=== PATIENT | female | born 1950 | race Caucasian/White ===

== ENCOUNTER 2017-05-30 23:42 | Inpatient (IN) ==
[2017-05-31] MEDS ORDERED: ACETAMINOPHEN 500 MG TABLET PO PRN (00:12)
[2017-05-31] MEDS ORDERED: ALBUTEROL/IPRATROPIUM 2.5mg-0.5mg/3ml NEB AEROSOL ONE (00:13)
[2017-05-31] MEDS ORDERED: NS 1,000 ML IV ONE (00:14)
--- NOTE | 2017-05-31 00:14 | Emergency Department Report ---
General Adult HPI - General Chief complaint: Upper Respiratory Infection Stated complaint: cough, 102.8 temp Time Seen by Provider: 05/31/17 00:02 Source: patient, family Mode of arrival: wheelchair Limitations: no limitations - History of Present Illness HPI narrative: 67-year-old female presents to the emergency department with a chief complaint of a cough and fever. Patient noted onset of symptoms one day ago. 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 She denies any current pain or discomfort. She has a nonproductive cough. Her temperature was approximately 102F earlier today. She has been using Mucinex with some improvement of symptoms. She has no other current complaints or associated symptoms. She was at home when her symptoms began. Symptoms have been persistent in nature since onset. is also suffering from similar symptoms. - Related Data Home Medications Medication Instructions Recorded Confirmed Citalopram Hydrobromide 40 mg PO DAILY #0 07/26/09 05/31/17 [Citalopram HBr] Fluticasone Propionate (Flonase) 0.65 EA NOSTRIL BID #0 07/26/09 Folic Acid 1 mg PO DAILY #0 07/26/09 05/31/17 Quetiapine Fumarate [Seroquel] 50 mg PO HS #0 07/26/09 05/31/17 Sennosides [Senna-Gen] 8.6 mg PO BID #2 07/26/09 05/31/17 Amlodipine Besylate 5 mg PO DAILY #0 tab 02/05/14 05/31/17 Levothyroxine Sodium 1 tab PO DAILY #90 05/01/16 05/31/17 Pravastatin Sodium 1 tab PO DAILY #30 05/01/16 05/31/17 Previous Rx's Medication Instructions Recorded Ibuprofen 600 mg PO Q6HR PRN 10 Days #40 tab 05/06/16 Allergies Allergy/AdvReac Type Severity Reaction Status Date / Time sulfamethoxazole Allergy Unknown Verified 05/31/17 00:13 trimethoprim Allergy Unknown Verified 05/31/17 00:13 morphine AdvReac Mild FLUSHING Verified 05/31/17 00:13 Review of Systems Constitutional: Reports: fever, weakness (generalized) Eyes: Denies: eye pain, vision change ENT: Denies: ear pain, throat pain Cardiovascular: Denies: chest pain, palpitations Respiratory: Reports: cough, dyspnea Gastrointestinal: Denies: abdominal pain, nausea, vomiting, diarrhea Genitourinary: Denies: urgency, dysuria Musculoskeletal: Denies: back pain, arthralgia Integumentary: Denies: erythema, rash Neurological: Denies: headache, numbness Psychiatric: Denies: anxiety, depression Endocrine: Denies: fatigue, heat or cold intolerance Hematological/Lymphatic: Denies: easy bruising, lymphadenopathy Allergic/Immunologic: Denies: facial swelling, urticaria PFSH Patient Stated Medical History Cerebrovascular Accident Yes Other HEENT Yes: GLASSES Hypertension Yes Other Respiratory Yes: ALLERGIES Hx Urinary Tract Infection Yes Surgical History: Hysterectomy, Hernia Family History: Reviewed and noncontributory. - Social History Smoking status: Never smoker Physical Exam - Limitations Limitations: no limitations - General General appearance: alert, in no apparent distress - Normal Exams: Head:: Normocephalic without trauma Eyes:: Pupils are PERRLA w/ EOMI, No scleral icterus, irritation, or foreign bodies noted ENMT:: No facial trauma, nasal exudates, pharyngeal erythema, or exudates are noted Dental: No fractured, loose, or missing teeth noted Neck:: Full range of motion, without adenopathy, JVD, bruits or thyromegaly Chest/Respirations:: with good airflow (Coarse breath sounds with rhonchi bilat. ), and symmetry bilaterally Cardiovascular:: Regular rate and rhythm, without murmur or gallop, Pulses 2+ all extremities, capillary refill, <2 seconds all extremities Abdomen:: Bowel sounds positive, soft, non-tender, non-distended, no hepatosplenomegaly, masses or bruits noted Lymphatic:: No lymphadenopathy, or lymphedema noted Musculoskeletal:: No tenderness, or deformity noted, good range of motion, all extremities Integumentary:: No rashes, hives, or bruising noted, hair and nails, without abnormality Neurological:: Patient is alert, and oriented, cranial nerves, motor/sensory/ cerebellar, exams w/o gross deficits, to observation Psychiatric:: Patient exhibits, appropriate attention, emotion and affect Course Vital Signs Temperature 101.6 F H 05/30/17 23:45 Pulse Rate 105 H 05/30/17 23:45 Respiratory Rate 20 05/30/17 23:45 Blood Pressure 208/96 H 05/30/17 23:45 Pulse Oximetry 90 05/30/17 23:45 Temperature 98.2 F 05/31/17 02:54 Pulse Rate 77 05/31/17 02:54 Respiratory Rate 24 05/31/17 02:54 Blood Pressure 128/65 05/31/17 02:54 Pulse Oximetry 97 05/31/17 02:54 Medical Decision Making - MDM Narrative Medical decision making narrative: Labs / imaging were reviewed in detail with the patient and family and questions are answered. Patient is given 1 L normal saline intravenously. She is given 1 g of acetaminophen orally. She is given Zofran 4 mg IV times one. Tamiflu 75 mg by mouth 1 is ordered. Patient is discussed with the hospitalist Dr. Ismael Ellington and admitted to the service of Dr. Atkins in improved condition. Patient is admitted as she is requiring 2L supplemental oxygen by nasal canula to maintain oxygen saturations of 92-94%. Patient is influenza A positive. No further orders from accepting or consulting physicians who are in agreement with the current plan of management. Patient is admitted to the hospital in improved condition. Patient and family are in agreement with the current plan of management. - Differential Diagnosis Influenza, Viral Syndrome, Pneumonia, Metabolic disorder - Lab Data Result diagrams: 05/31/17 00:10 05/31/17 00:10 Lab Results 05/31/17 05/31/17 05/31/17 Range/Units 00:00 00:10 00:10 WBC 9.2 (4.5-11.0) T/MM3 RBC 3.99 L (4.00-5.20) M/MM3 Hgb 12.6 (12-16) GM/DL Hct 39.9 (36-46) % MCV 100.0 (80-100) UM3 MCH 31.6 (26-34) UUG MCHC 31.6 (31-37) GM/DL RDW Std Deviation 45.7 (36.9-50.2) FL Plt Count 135 (130-400) T/MM3 MPV 12.1 (9.4-12.4) UM3 Immature Gran % (Auto) 0.3 (0.0-0.5) % Neut % (Auto) 83.2 H (33-66) % Lymph % (Auto) 7.6 L (23-45) % [place] % (Auto) 8.4 (0-9.0) % Eos % (Auto) 0.2 (0-4) % Baso % (Auto) 0.3 (0-2) % Neut # (Auto) 7.7 (1.8-7.7) T/MM3 Lymph # (Auto) 0.7 L (1-4.8) T/MM3 [place] # (Auto) 0.8 (0-0.8) T/MM3 Eos # (Auto) 0.0 (0-0.5) T/MM3 Baso # (Auto) 0.0 (0-0.2) T/MM3 Abs Immat Gran (auto) 0.03 (0.00-0.03) T/MM3 Turbidity < 20 (0-20) Sodium 145 H (134-144) MEQ/L Potassium 4.3 (3.6-5) MEQ/L Chloride 105 (98-107) MEQ/L Carbon Dioxide 26 (22-30) MEQ/L Anion Gap 14 (5-15) MEQ/L BUN 14.0 (7-17) MG/DL Creatinine 0.7 (0.7-1.2) MG/DL GFR Calculation 83 BUN/Creatinine Ratio 20 (6-26) RATIO Glucose 138 H (65-110) MG/DL Calculated Osmolality 282 H (261-280) MOSM/KG Calcium 9.4 (8.4-10.2) MG/DL Total Bilirubin 0.60 (0.20-1.30) MG/DL Icterus Index < 2 (0-7) AST 24 (14-36) U/L ALT 21 (9-52) U/L Alkaline Phosphatase 68 (38-126) U/L Troponin I < 0.012 (0-0.12) ng/ml Total Protein 7.4 (6.3-8.2) G/DL Albumin 4.3 (3.5-5.0) G/DL Globulin 3.1 (2.4-3.6) G/DL Albumin/Globulin Ratio 1.4 (1.1-2.2) RATIO Plasma Lactate 1.9 (0.6-2.2) MMOL/L Procalcitonin NG/ML Specimen Hemolysis < 15 (0-25) Ur Collection Type Urine Color (YELLOW) Urine Clarity Urine pH (5.0-8.0) Ur Specific Patten (1.015-1.025) Urine Protein (NEGATIVE) Urine Glucose (UA) (NEGATIVE) Urine Ketones (NEGATIVE) Urine Occult Blood (NEGATIVE) Urine Nitrate (NEGATIVE) Urine Bilirubin (NEGATIVE) Urine Urobilinogen (NORMAL) EU/DL Ur Leukocyte Esterase (NEGATIVE) Urinalysis Comment Influenza Type A (PCR) Positive A* (Negative) Influenza Type B (PCR) Negative (Negative) 05/31/17 05/31/17 Range/Units 00:10 00:29 WBC (4.5-11.0) T/MM3 RBC (4.00-5.20) M/MM3 Hgb (12-16) GM/DL Hct (36-46) % MCV (80-100) UM3 MCH (26-34) UUG MCHC (31-37) GM/DL RDW Std Deviation (36.9-50.2) FL Plt Count (130-400) T/MM3 MPV (9.4-12.4) UM3 Immature Gran % (Auto) (0.0-0.5) % Neut % (Auto) (33-66) % Lymph % (Auto) (23-45) % [place] % (Auto) (0-9.0) % Eos % (Auto) (0-4) % Baso % (Auto) (0-2) % Neut # (Auto) (1.8-7.7) T/MM3 Lymph # (Auto) (1-4.8) T/MM3 [place] # (Auto) (0-0.8) T/MM3 Eos # (Auto) (0-0.5) T/MM3 Baso # (Auto) (0-0.2) T/MM3 Abs Immat Gran (auto) (0.00-0.03) T/MM3 Turbidity (0-20) Sodium (134-144) MEQ/L Potassium (3.6-5) MEQ/L Chloride (98-107) MEQ/L Carbon Dioxide (22-30) MEQ/L Anion Gap (5-15) MEQ/L BUN (7-17) MG/DL Creatinine (0.7-1.2) MG/DL GFR Calculation BUN/Creatinine Ratio (6-26) RATIO Glucose (65-110) MG/DL Calculated Osmolality (261-280) MOSM/KG Calcium (8.4-10.2) MG/DL Total Bilirubin (0.20-1.30) MG/DL Icterus Index (0-7) AST (14-36) U/L ALT (9-52) U/L Alkaline Phosphatase (38-126) U/L Troponin I (0-0.12) ng/ml Total Protein (6.3-8.2) G/DL Albumin (3.5-5.0) G/DL Globulin (2.4-3.6) G/DL Albumin/Globulin Ratio (1.1-2.2) RATIO Plasma Lactate (0.6-2.2) MMOL/L Procalcitonin < 0.05 NG/ML Specimen Hemolysis (0-25) Ur Collection Type Urine, catheter Urine Color Yellow (YELLOW) Urine Clarity Clear Urine pH 6.5 (5.0-8.0) Ur Specific Patten 1.025 (1.015-1.025) Urine Protein Trace A (NEGATIVE) Urine Glucose (UA) Negative (NEGATIVE) Urine Ketones Negative (NEGATIVE) Urine Occult Blood Negative (NEGATIVE) Urine Nitrate Negative (NEGATIVE) Urine Bilirubin Negative (NEGATIVE) Urine Urobilinogen 0.2 (NORMAL) EU/DL Ur Leukocyte Esterase Negative (NEGATIVE) Urinalysis Comment Microscopic not ind. Influenza Type A (PCR) (Negative) Influenza Type B (PCR) (Negative) - Radiology Data CXR - Viral pattern. Cannot exclude R sided infiltrate which is most likely viral. - EKG Data EKG #1 EKG results narrative: Sinus rhythm. 84 bpm. No STEMI. Disposition Clinical Impression: Influenza, Hypoxia Disposition: 02 To [facility] Condition: Improved Time of Disposition: 12:45 - Seen By: physician
--- OUTSIDE RECORDS SUMMARY | 2017-05-31 00:18 | External Medical Summary | Clinical Summary ---
:1950 Author Organization [facility] Address [address] [place] [address] Phone Care Team Providers Name Role Phone Unavailable Primary Care Provider Unavailable Source Comments Some departments are not documenting in the electronic medical record. If you do not see the information that you expected, contact Release of Information in the Health Information Management department at [phone] for further assistance in locating additional records.[facility] Allergies Active Allergy Reactions Severity Noted Date Comments Morphine HIVES, ITCHING 01/05/2008 Current Medications Prescription Sig. Disp. Refills Start Date End Date Status folic acid (FOLVITE) 1 mg Take 1 mg by mouth Active tablet daily. amLODIPine (NORVASC) 5 mg Take 5 mg by mouth Active tablet daily. lactulose 10 gram/15 mL Take 10 g by mouth Active oral solution three times daily. QUEtiapine (SEROQUEL) 50 Take 25 mg by mouth Active mg tablet daily. calcitonin salmon Apply 1 [place] to Active (FORTICAL) 200 one nostril as unit/actuation nasal directed daily. spray citalopram (CELEXA) 40 mg Take 40 mg by mouth Active tablet daily. POLYETHYLENE GLYCOL 3350 Use as directed. Active MISC levofloxacin (LEVAQUIN) Take 500 mg by Active 500 mg tablet mouth. LEVOTHYROXINE SODIUM Take 75 mcg by Active (SYNTHROID PO) mouth daily. CALCIUM CARBONATE/VITAMIN Take 1 Tab by mouth Active D3 (CALCIUM 600 + D PO) daily. SENNOSIDES (SENNA PO) Take 1 Tab by mouth Active twice daily. cyanocobalamin(+) Take 1,000 mcg by Active (VITAMIN B-12) 500 mcg mouth daily. 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 Social History Tobacco Use Types Packs/Day Years Used Date Former Smoker 1 8 Smokeless Tobacco: Never Used Comments: quit 1974 Alcohol Use Drinks/Week oz/Week Comments No rarely Sex Assigned at Date Recorded Not on file Last Filed Vital Signs Vital Sign Reading Time Taken Blood Pressure 115/64 10/16/2013 11:48 AM CDT Pulse 60 10/16/2013 11:48 AM CDT Temperature 37.2 C (99 F) 08/25/2011 12:47 AM CDT Respiratory Rate 16 04/10/2013 11:36 AM [employer] Oxygen Saturation 97% 01/17/2008 7:50 AM CDT Inhaled Oxygen Concentration - - Weight 117.9 kg (260 lb) 10/16/2013 11:48 AM CDT Height 165.1 cm (5' 5") 10/16/2013 11:48 AM CDT Body Mass Index 43.27 10/16/2013 11:48 AM CDT Plan of Treatment Health Maintenance Due Date Last Done Comments HEPATITIS C SCREENING 1950 PHYSICAL (COMPREHENSIVE) EXAM 1957 PERTUSSIS VACCINE 1961 TETANUS VACCINE 1967 BREAST CANCER SCREENING 1990 COLORECTAL CANCER SCREENING 01/12/2000 SHINGLES VACCINE 2010 OSTEOPOROSIS SCREENING 2015 PREVNAR/PNEUMOVAX (#1) 2015 INFLUENZA VACCINE 12/29/2016
--- OUTSIDE RECORDS SUMMARY | 2017-05-31 00:19 | External Medical Summary | Referral Summary ---
:1950 Author [facility] Address [address] [place] [address] [place] [address] Care Team Providers Name Role Phone Jacqueline Zhang Primary Care Physician Encounter VC Date(s): 07/01/16 - 07/01/16 [facility] [place] [phone] Discharge Disposition: 01-Home or Self Care Attending Physician: Quinten Burr APRN Admitting Physician: Quinten Burr APRN Vital Signs Most recent to oldest [Reference Range]: 1 Temperature Tympanic [36.6-38.1 degC] 36.4 degC *LOW* (07/01/16 1:17 PM) Peripheral Pulse Rate [60-100 bpm] 66 bpm (07/01/16 1:17 PM) Blood Pressure [90-140/60-90 mmHg] 108/74 mmHg (07/01/16 1:17 PM) SpO2 97 % (07/01/16 1:17 PM) Problem List Condition Effective Dates Status Health Status Informant Anxiety(Confirmed) Active CVA (cerebral vascular Active accident)(Confirmed) Paranoia(Confirmed) Active Thyroid disease(Confirmed) Active Hearing loss(Confirmed) Active H/O: CVA (cerebrovascular Active accident)(Confirmed) Hypertension(Confirmed) Active Tobacco user(Confirmed) Active patient Allergies, Adverse Reactions, Alerts Substance Reaction Severity Status Bactrim1 Active 1Not sure this is the correct one family can not remember for sure Medications amLODIPine 5 mg oral tablet See Instructions, TAKE ONE TABLET BY MOUTH DAILY Pt needs med check, # 30 tabs , 0 Refill(s), Pharmacy: [facility] #[id number], TAKE ONE TABLET BY MOUTH DAILY; Pt needs med check Start Date: 06/09/16 Status: OrderedCaltrate 600 + D tabs, Oral, Daily, 0 Refill(s) Start Date: 08/03/14 Status: OrderedCipro 500 mg oral tablet 500 mg 1 tabs, Oral, q12hr, X 7 days, # 14 tabs, 0 Refill(s), Pharmacy: [facility] #[id number], 1 tabs Oral q12hr,x7 days Start Date: 07/01/16 Stop Date: 07/08/16 Status: OrderedCitalopram 40 mg oral tablet See Instructions, TAKE ONE TABLET BY MOUTH DAILY, # 90 tabs, eRx: [facility] #[id number], TAKE ONETABLET BY MOUTH DAILY Start Date: 04/15/16 Status: Orderedfluticasone 50 mcg/inh nasal spray See Instructions, PLACE ONE SPRAY IN EACH NOSTRIL ONCE DAILY, # 16 unknown unit , 2 Refill(s), eRx: [facility] #[id number], PLACE ONE SPRAY IN EACH NOSTRIL ONCE DAILY Start Date: 04/20/16 Status: Orderedfolic acid 1 mg oral tablet See Instructions, TAKE ONE TABLET BY MOUTH DAILY, MUST CALL MD FOR APPOINTMENT , # 30 tabs, 2 Refill(s), eRx: [facility] #[id number], TAKE ONE TABLET BY MOUTH DAILY, MUST CALL MD FOR APPOINTMENT Start Date: 04/14/16 Status: Orderedibuprofen 600 mg oral tablet 600 mg 1 tabs, Oral, q6hr, as needed for pain, 0 Refill(s) Start Date: 05/08/16 Status: Orderedlactulose 10 g/15 mL oral syrup See Instructions, TAKE 30 ML BY MOUTH EVERY DAY, DO NOT USE IF DIARRHEA., # 450 unknown unit, 1 Refill(s), Pharmacy: [facility] #[id number], TAKE 30 ML BY MOUTH EVERY DAY, DO NOT USE IF DIARRHEA. Start Date: 03/13/15 Status: Orderedlevothyroxine 75 mcg (0.075 mg) oral tablet See Instructions, TAKE ONE TABLET BY MOUTH DAILY, # 90 tabs, eRx: [facility] #[id number], TAKE ONETABLET BY MOUTH DAILY Start Date: 04/01/16 Status: OrderedMiraLax oral powder for reconstitution 17 g 17 g, Oral, Daily, dissolve in water before taking, # 1,530 g, 1 Refill(s) , Pharmacy: [facility] #[id number] Start Date: 03/13/15 Status: OrderedMiscellaneous DME DME Item REPAIR/MOD TO POWER WHEELCHAIR DX Z86.73, See Instructions, # 1 Each, 0 Refill(s), Supply Start Date: 11/28/15 Status: OrderedNorco 5 mg-325 mg oral tablet 1-2 tabs, Oral, q5hr, as needed for pain, 0 Refill(s) Start Date: 05/08/16 Status: Orderedpravastatin 20 mg oral tablet See Instructions, TAKE ONE TABLET BY MOUTH EVERY NIGHT AT BEDTIME MUST CALL MD FOR APPOINTMENT, # 30 tabs, 2 Refill(s), eRx: [facility] #[id number], TAKE ONE TABLET BY MOUTH EVERY NIGHT AT BEDTIME MUST CALL MD FOR APPOINTMENT Start Date: 04/14/16 Status: OrderedQUEtiapine 25 mg oral tablet See Instructions, TAKE ONE TABLET BY MOUTH DAILY, MUST CALL MD FOR APPOINTMENT , # 30 tabs, 2 Refill(s), eRx: [facility] #[id number], TAKE ONE TABLET BY MOUTH DAILY, MUST CALL MD FOR APPOINTMENT Start Date: 04/14/16 Status: OrderedSenna Plus See Instructions, TAKES 1-2 AM AND 2 @ HS, 0 Refill(s) Start Date: 08/07/14 Status: OrderedVitamin B-12 100 mcg oral tablet 1 tabs, Oral, Daily, # 30 tabs, 0 Refill(s) Start Date: 08/03/14 Status: Ordered Results No data available for this section Immunizations Given and Recorded Vaccine Date Status Refusal Reason hepatitis B adult vaccine 11/26/10 Recorded influenza virus vaccine, inactivated 03/12/16 Recorded influenza virus vaccine, inactivated 03/28/15 Recorded influenza virus vaccine, inactivated 03/20/14 Recorded influenza virus vaccine, live 03/07/13 Given influenza virus vaccine, live 03/03/12 Given zoster vaccine live 03/17/12 Given Procedures Procedure Date Related Diagnosis Body Site Laparoscopic repair of ventral hernia1 05/04/16 Hysterectomy Insertion-Baclofen Pump Myringotomy Tubal ligation 1Robotic assisted laparoscopic ventral hernia repair with mesh Social History Social History Type Response Smoking Status Former smoker; Type: Cigarettes; Tobacco use per day: Former; Number of years: 7 Assessment and Plan No data available for this section
--- OUTSIDE RECORDS SUMMARY | 2017-05-31 00:19 | External Medical Summary | Referral Summary ---
:1950 Author [facility] Address [address] [place] [address] [place] [address] Care Team Providers Name Role Phone Jacqueline Zhang Primary Care Physician Encounter VC Date(s): 03/13/15 - 03/13/15 [facility] [place] [phone] [place] Discharge Diagnosis: Hypertension Discharge Diagnosis: Paranoia Discharge Diagnosis: Depression Discharge Diagnosis: Hyperlipidemia Discharge Diagnosis: Thyroid disease Discharge Disposition: 01-Home or Self Care Attending Physician: Quinten Burr APRN Admitting Physician: Quinten Burr APRN Vital Signs Most recent to oldest [Reference Range]: 1 Temperature Tympanic [36.6-38.1 degC] 35.8 degC *LOW* (03/13/15 10:39 AM) Peripheral Pulse Rate [60-100 bpm] 72 bpm (03/13/15 10:39 AM) Respiratory Rate [14-20 br/min] 18 br/min (03/13/15 10:39 AM) Blood Pressure [90-140/60-90 mmHg] 122/72 mmHg (03/13/15 10:39 AM) Problem List Condition Effective Dates Status Health [...] sure Medications amLODIPine 5 mg oral tablet 5 mg 1 tabs, Oral, Daily, # 90 tabs, 1 Refill(s), Pharmacy: [facility] # [id number], 1 tabs Oral Daily Start Date: 03/13/15 Status: OrderedCaltrate 600 + D tabs, Oral, BID, 0 Refill(s) Start Date: 08/03/14 Status: OrderedCeleXA 40 mg oral tablet 40 mg 1 tabs, Oral, Daily, # 90 tabs, 1 Refill(s), Pharmacy: [facility] # [id number], 1 tabs Oral Daily Start Date: 03/13/15 Status: OrderedFlonase 50 mcg/inh nasal spray See Instructions, PLACE ONE SPRAY IN THE EACH NOSTRIL EVERY DAY, # 1 Each, 3 Refill(s), Pharmacy: [facility] #[id number] Start Date: 03/13/15 Status: Orderedfolic acid 1 mg oral tablet See Instructions, TAKE ONE TABLET BY MOUTH DAILY, # 90 tabs, 1 Refill(s), eRx: [facility] #[id number], TAKE ONE TABLET BY MOUTH DAILY Start Date: 09/16/15 Status: Orderedlactulose 10 g/15 mL oral syrup 10 g 15 mL, Oral, Daily, as needed for constipation, # 480 mL, 0 Refill(s) Start Date: 03/13/15 Status: Orderedlactulose 10 g/15 mL oral syrup See Instructions, TAKE 30 ML BY MOUTH EVERY DAY, DO NOT USE IF DIARRHEA., # 450 unknown unit, 1 Refill(s), Pharmacy: [facility] #[id number], TAKE 30 ML BY MOUTH EVERY DAY, DO NOT USE IF DIARRHEA. Start Date: 03/13/15 Status: Orderedlevothyroxine 75 mcg (0.075 mg) oral tablet 75 mcg 1 tabs, Oral, Daily, # 90 tabs, 1 Refill(s), Pharmacy: [facility] # [id number], 1 tabs Oral Daily Start Date: 03/13/15 Status: OrderedMiraLax oral powder for reconstitution 17 g 17 g, Oral, Daily, dissolve in water before taking, # 1,530 g, 1 Refill(s) , Pharmacy: [facility] #[id number] Start Date: 03/13/15 Status: Orderedpravastatin 20 mg oral tablet 20 mg 1 tabs, Oral, Bedtime (once a day), # 30 tabs, 5 Refill(s), Pharmacy: [facility] #[id number], 1 tabs Oral Bedtime (once a day) Start Date: 03/13/15 Status: OrderedQUEtiapine 25 mg oral tablet See Instructions, TAKE ONE TABLET BY MOUTH DAILY, # 90 tabs, 1 Refill(s), eRx: [facility] #[id number], TAKE ONE TABLET BY MOUTH DAILY Start Date: 09/19/15 Status: OrderedSenna Plus 2 tabs, Oral, Bedtime (once a day), 0 Refill(s) Start Date: 08/07/14 Status: OrderedVitamin B-12 100 mcg oral tablet 1 tabs, Oral, Daily, # 30 tabs, 0 Refill(s) Start Date: 08/03/14 Status: Ordered Results No data available for this section Immunizations Vaccine Date Refusal Reason hepatitis B adult vaccine 11/26/10 influenza virus vaccine, inactivated 03/28/15 influenza virus vaccine, inactivated 03/20/14 influenza virus vaccine, live 03/07/13 influenza virus vaccine, live 03/03/12 zoster vaccine live 03/17/12 Procedures Procedure Date Related Diagnosis Body Site Hysterectomy Insertion-Baclofen Pump Myringotomy Tubal ligation Social History Social History Type Response Smoking Status Former smoker; Type: Cigarettes; Tobacco use per day: Former; Number of years: 7 Assessment and Plan Extracted from: Title: Office Visit Note Author: Quinten Burr APRN Date: 03/13/15 Assessment/Plan Depression She feels that this is well controlled on her citalopram. On exam, she appears to be doing well symptomatically. I think we can safely refill this for her for 6 months. Hyperlipidemia She had a fasting LP drawn in July that showed some elevated triglycerides. She reports that she was put on statin therapy at that time. We will refill this today, but she will retur n for a rck lipid panel another day when she is fasting. Hypertension BP seems to be well controlled. We will refill her amlodipine for 6 mos. She needs to come back in for a BMP since it has been 6 mos. She can do this with her LP. Paranoia Quetiapine seems to be working for her in controlling some of these symptoms. I think it is advisable to keep her on it at this time. Refilled for 6 mos. Thyroid disease TSH is July shows that she is well controlled. Reports being asymptomatic. Continue current therapy and rck in 1 year from July.
--- OUTSIDE RECORDS SUMMARY | 2017-05-31 00:19 | External Medical Summary | Referral Summary ---
:1950 Author Organization [facility] Address [address] [place] [address] Care Team Providers Name Role Phone Jacqueline Zhang Primary Care Physician Encounter VC [facility] [id number] Date(s): 07/08/16 - 07/08/[address] [facility] [address] [place] [address]- [place] Discharge Diagnosis: Tobacco user Discharge Disposition: 01-Home or Self Care Attending Physician: Hong Montoya MD Admitting Physician: Hong Montoya MD Vital Signs No data available for this section Problem List Condition Effective Dates Status Health Status Informant Abnormal EKG(Confirmed) Active Anxiety(Confirmed) Active Benign essential HTN(Confirmed) Active CVA (cerebral vascular Active accident)(Confirmed) Paranoia(Confirmed) Active Thyroid disease(Confirmed) Active Hearing loss(Confirmed) Active H/O: CVA (cerebrovascular Active accident)(Confirmed) Hypertension(Confirmed) Active Morbid obesity(Confirmed) Active Bradycardia, sinus(Confirmed) Active Tobacco user(Confirmed) Active patient Allergies, Adverse Reactions, Alerts Substance Reaction Severity Status Bactrim1 Active 1Not sure this is the correct one family can not remember for sure Medications amLODIPine 5 mg oral tablet See Instructions, TAKE ONE TABLET BY MOUTH DAILY, MUST CALL MD FOR APPOINTMENT , # 30 tabs, eRx: [facility] #[id number], TAKE ONE TABLET BY MOUTH DAILY, MUST CALL MD FOR APPOINTMENT Start Date: 07/06/16 Status: Orderedbaclofen 0 Refill(s) Start Date: 07/03/16 Status: OrderedCaltrate 600 + D tabs, Oral, Daily, 0 Refill(s) Start Date: 08/03/14 Status: OrderedCitalopram 40 mg oral tablet See Instructions, TAKE ONE TABLET BY MOUTH DAILY, # 90 tabs, eRx: [facility] #[id number], TAKE ONETABLET BY MOUTH DAILY Start Date: 04/15/16 Status: Orderedfluticasone 50 mcg/inh nasal spray See Instructions, PLACE ONE SPRAY IN EACH NOSTRIL ONCE DAILY, # 16 unknown unit , 2 Refill(s), eRx: [facility] #[id number], PLACE ONE SPRAY IN EACH NOSTRIL ONCE DAILY Start Date: 04/20/16 Status: Orderedfolic acid 1 mg oral tablet See Instructions, TAKE ONE TABLET BY MOUTH DAILY, MUST CALL MD FOR APPOINTMENT , # 30 tabs, 2 Refill(s), eRx: [facility] #[id number], TAKE ONE TABLET BY MOUTH DAILY, MUST CALL MD FOR APPOINTMENT Start Date: 04/14/16 Status: Orderedibuprofen 600 mg oral tablet 600 mg 1 tabs, Oral, q6hr, as needed for pain, 0 Refill(s) Start Date: 05/08/16 Status: Orderedlactulose 10 g/15 mL oral syrup See Instructions, TAKE 30 ML BY MOUTH EVERY DAY, DO NOT USE IF DIARRHEA., # 450 unknown unit, 1 Refill(s), Pharmacy: [facility] #[id number], TAKE 30 ML BY MOUTH EVERY DAY, DO NOT USE IF DIARRHEA. Start Date: 03/13/15 Status: Orderedlevothyroxine 75 mcg (0.075 mg) oral tablet See Instructions, TAKE ONE TABLET BY MOUTH DAILY, # 90 tabs, eRx: [facility] #[id number], TAKE ONETABLET BY MOUTH DAILY Start Date: 04/01/16 Status: OrderedMiraLax oral powder for reconstitution 17 g 17 g, Oral, Daily, dissolve in water before taking, # 1,530 g, 1 Refill(s) , Pharmacy: [facility] #[id number] Start Date: 03/13/15 Status: OrderedMiscellaneous DME DME Item REPAIR/MOD TO POWER WHEELCHAIR DX Z86.73, See Instructions, # 1 Each, 0 Refill(s), Supply Start Date: 11/28/15 Status: Orderedpravastatin 20 mg oral tablet See Instructions, TAKE ONE TABLET BY MOUTH EVERY NIGHT AT BEDTIME MUST CALL MD FOR APPOINTMENT, # 30 tabs, 2 Refill(s), eRx: [facility] #[id number], TAKE ONE TABLET BY MOUTH EVERY NIGHT AT BEDTIME MUST CALL MD FOR APPOINTMENT Start Date: 04/14/16 Status: OrderedQUEtiapine 25 mg oral tablet See Instructions, TAKE ONE TABLET BY MOUTH DAILY, MUST CALL MD FOR APPOINTMENT , # 30 tabs, 2 Refill(s), eRx: [facility] #[id number], TAKE ONE TABLET BY MOUTH DAILY, MUST CALL MD FOR APPOINTMENT Start Date: 04/14/16 Status: OrderedSenna Plus See Instructions, TAKES 1-2 AM AND 2 @ HS, 0 Refill(s) Start Date: 08/07/14 Status: OrderedVitamin B-12 100 mcg oral tablet 1 tabs, Oral, Daily, # 30 tabs, 0 Refill(s) Start Date: 08/03/14 Status: Ordered Results Chemistry Most recent to oldest [Reference Range]: 1 BNP [0-99 pg/mL] 32 pg/mL (07/08/16 9:51 AM) Immunizations Given and Recorded Vaccine Date Status [...]
--- OUTSIDE RECORDS SUMMARY | 2017-05-31 00:19 | External Medical Summary | Referral Summary ---
:1950 Author Organization [facility] Address [address] [place] [address] Care Team Providers Name Role Phone Jacqueline Zhang Primary Care Physician Encounter VC Date(s): 07/03/16 - 07/03/16 [facility] [address] [place] [address]- [place] Discharge Disposition: 01-Home or Self Care Attending Physician: Francisco Cuello MD Vital Signs No data available for [...] # 30 tabs , 0 Refill(s), Pharmacy: [facility] #[id number], TAKE ONE TABLET BY MOUTH DAILY; Pt needs med check Start Date: 06/09/16 Status: Orderedbaclofen 0 Refill(s) Start Date: 07/03/16 Status: OrderedCaltrate 600 + D tabs, Oral, Daily, 0 Refill(s) Start Date: 08/03/14 Status: OrderedCipro 500 mg oral tablet 500 mg 1 tabs, Oral, q12hr, X 7 days, # 14 tabs, 0 Refill(s), Pharmacy: [facility] #[id number], 1 tabs Oral q12hr,x7 days Start Date: 07/01/16 Stop Date: 07/08/16 Status: OrderedCitalopram 40 mg oral tablet See Instructions, TAKE ONE TABLET BY MOUTH DAILY, # 90 tabs, eRx: [facility] #[id number], TAKE ONETABLET BY MOUTH DAILY Start Date: 04/15/16 Status: Orderedfluticasone 50 mcg/inh nasal spray See Instructions, PLACE ONE SPRAY IN EACH NOSTRIL ONCE DAILY, # 16 unknown unit , 2 Refill(s), eRx: [facility] #[id number], PLACE ONE SPRAY IN EACH NOSTRIL ONCE DAILY Start Date: 04/20/16 Status: Orderedfolic acid 1 mg oral tablet See Instructions, TAKE ONE TABLET BY MOUTH DAILY, MUST CALL MD FOR APPOINTMENT , # 30 tabs, 2 Refill(s), eRx: [facility] #[id number], TAKE ONE TABLET BY MOUTH DAILY, MUST CALL MD FOR APPOINTMENT Start Date: 04/14/16 Status: Orderedibuprofen 600 mg oral tablet 600 mg 1 tabs, Oral, q6hr, as needed for pain, 0 Refill(s) Start Date: 05/08/16 Status: Orderedlactulose 10 g/15 mL oral syrup See Instructions, TAKE 30 ML BY MOUTH EVERY DAY, DO NOT USE IF DIARRHEA., # 450 unknown unit, 1 Refill(s), Pharmacy: [facility] #[id number], TAKE 30 ML BY MOUTH EVERY DAY, DO NOT USE IF DIARRHEA. Start Date: 03/13/15 Status: Orderedlevothyroxine 75 mcg (0.075 mg) oral tablet See Instructions, TAKE ONE TABLET BY MOUTH DAILY, # 90 tabs, eRx: [facility] #[id number], TAKE ONETABLET BY MOUTH DAILY Start Date: 04/01/16 Status: OrderedMiraLax oral powder for reconstitution 17 g 17 g, Oral, Daily, dissolve in water before taking, # 1,530 g, 1 Refill(s) , Pharmacy: [facility] #[id number] Start Date: 03/13/15 Status: OrderedMiscellaneous DME DME [...] APPOINTMENT, # 30 tabs, 2 Refill(s), eRx: [facility] #[id number], TAKE ONE TABLET BY MOUTH EVERY NIGHT AT BEDTIME MUST CALL MD FOR APPOINTMENT Start Date: 04/14/16 Status: OrderedQUEtiapine 25 mg oral tablet See Instructions, TAKE ONE TABLET BY MOUTH DAILY, MUST CALL MD FOR APPOINTMENT , # 30 tabs, 2 Refill(s), eRx: [facility] #[id number], TAKE ONE TABLET BY MOUTH DAILY, MUST [...]
--- OUTSIDE RECORDS SUMMARY | 2017-05-31 00:19 | External Medical Summary | Referral Summary ---
:1950 Author Organization [facility] Address [address] [place] [address] Care Team Providers Name Role Phone Jacqueline Zhang Primary Care Physician Encounter VC Date(s): 07/08/16 - 07/08/16 [facility] [address] [place] [address]- [place] Discharge Diagnosis: Hypoxia Discharge Diagnosis: Obstructive sleep apnea Discharge Diagnosis: Preoperative clearance Discharge Diagnosis: Shortness of breath Discharge Disposition: 01-Home or Self Care Attending Physician: Hong Montoya MD Admitting Physician: Hong Montoya MD Referring Physician: Ike Hill MD Vital Signs Most recent to oldest [Reference Range]: 1 Peripheral Pulse Rate [60-100 bpm] 58 bpm *LOW* (07/08/16 8:35 AM) Respiratory Rate [14-20 br/min] 16 br/min (07/08/16 8:35 AM) Blood Pressure [90-140/60-90 mmHg] 104/62 mmHg (07/08/16 8:35 AM) SpO2 93 % (07/08/16 8:35 AM) Problem List Condition Effective Dates Status [...] FOR APPOINTMENT , # 30 tabs, eRx: [facility] #[id number], TAKE ONE TABLET BY MOUTH DAILY, MUST CALL MD FOR APPOINTMENT Start Date: 07/06/16 Status: Orderedbaclofen 0 Refill(s) Start Date: 07/03/16 Status: OrderedCaltrate 600 + D tabs, Oral, Daily, 0 Refill(s) Start Date: 08/03/14 Status: OrderedCitalopram 40 mg oral tablet See Instructions, TAKE ONE TABLET BY MOUTH DAILY, # 90 tabs, eRx: [facility] #[id number], TAKE ONETABLET BY MOUTH DAILY Start Date: 04/15/16 Status: Orderedfluticasone 50 mcg/inh nasal spray See Instructions, PLACE ONE SPRAY IN EACH NOSTRIL ONCE DAILY, # 16 unknown unit , 2 Refill(s), eRx: [facility] #[id number], PLACE ONE SPRAY IN EACH NOSTRIL ONCE DAILY Start Date: 04/20/16 Status: Orderedfolic acid 1 mg oral tablet See Instructions, TAKE ONE TABLET BY MOUTH DAILY, MUST CALL MD FOR APPOINTMENT , # 30 tabs, 2 Refill(s), eRx: [facility] #[id number], TAKE ONE TABLET BY MOUTH DAILY, MUST CALL MD FOR APPOINTMENT Start Date: 04/14/16 Status: Orderedibuprofen 600 mg oral tablet 600 mg 1 tabs, Oral, q6hr, as needed for pain, 0 Refill(s) Start Date: 05/08/16 Status: Orderedlactulose 10 g/15 mL oral syrup See Instructions, TAKE 30 ML BY MOUTH EVERY DAY, DO NOT USE IF DIARRHEA., # 450 unknown unit, 1 Refill(s), Pharmacy: [facility] #[id number], TAKE 30 ML BY MOUTH EVERY DAY, DO NOT USE IF DIARRHEA. Start Date: 03/13/15 Status: Orderedlevothyroxine 75 mcg (0.075 mg) oral tablet See Instructions, TAKE ONE TABLET BY MOUTH DAILY, # 90 tabs, eRx: [facility] #[id number], TAKE ONETABLET BY MOUTH DAILY Start Date: 04/01/16 Status: OrderedMiraLax oral powder for reconstitution 17 g 17 g, Oral, Daily, dissolve in water before taking, # 1,530 g, 1 Refill(s) , Pharmacy: [facility] #[id number] Start Date: 03/13/15 Status: OrderedMiscellaneous DME DME Item REPAIR/MOD TO POWER WHEELCHAIR DX Z86.73, See Instructions, # 1 Each, 0 Refill(s), Supply Start Date: 11/28/15 Status: Orderedpravastatin 20 mg oral tablet See Instructions, TAKE ONE TABLET BY MOUTH EVERY NIGHT AT BEDTIME MUST CALL MD FOR APPOINTMENT, # 30 tabs, 2 Refill(s), eRx: [facility] #[id number], TAKE ONE TABLET BY MOUTH EVERY NIGHT AT BEDTIME MUST CALL MD FOR APPOINTMENT Start Date: 04/14/16 Status: OrderedQUEtiapine 25 mg oral tablet See Instructions, TAKE ONE TABLET BY MOUTH DAILY, MUST CALL MD FOR APPOINTMENT , # 30 tabs, 2 Refill(s), eRx: [facility] #[id number], TAKE ONE TABLET BY MOUTH DAILY, MUST [...] Extracted from: Title: Office Visit Note Author: Hong Montoya MD Date: 07/08/16 Assessment/Plan 1.Shortness of breath Ordered: Diffusing [facility] [place] [address] Hypoxia Her hypoxia is likely due to obesity and basal atelectasis. Per daughter in the past this seems to improve with deep breathing which again supports this mechanism Her CXR is unremarkable. Her PFTs are without obstruction. Her DLCO va is elevated suggestive of extrinsic restriction due to obesity I checked a BNP which was normal AT this moment would not consider further workup If hypoxia is refractory in the future would consider further workup Surgical clearance From a pulmonary standpoint there is no contraindication to surgery. Given obesity, and features suggestive of intermittent basal atelectasis, she may benefit from positive pressure/cpap or bipap in t he perioperative period especially while sedation is washing off Obstructive sleep apnea She has features suggestive of obstructive sleep apnea, she would benefit from sleep evaluation. Family would like to defer referral to sleep until they see primary. I have reviewed laboratory results I have reviewed the patientsradiology and imaging results I have reviewed old records I have reviewed the literature I have discussed the plan of care with the patient
--- OUTSIDE RECORDS SUMMARY | 2017-05-31 00:19 | External Medical Summary | Referral Summary ---
:1950 Author Organization [facility] [place] [address] Care Team Providers Name Role Phone Jacqueline Zhang Primary Care Physician Encounter VC Date(s): 09/12/15 - 09/12/15 [facility] [place] [address]- Discharge Diagnosis: Thyroid disease Discharge Diagnosis: H/O: CVA (cerebrovascular accident) Discharge Diagnosis: Hypertension Discharge Diagnosis: Anxiety Discharge Disposition: 01-Home or Self Care Attending Physician: Jacqueline Zhang DO Admitting Physician: Jacqueline Zhang DO Vital Signs Most recent to oldest [Reference Range]: 1 Peripheral Pulse Rate [60-100 bpm] 63 bpm (09/12/15 9:55 AM) Respiratory Rate [14-20 br/min] 18 br/min (09/12/15 9:55 AM) Blood Pressure [90-140/60-90 mmHg] 144/74 mmHg *HI* (09/12/15 9:55 AM) SpO2 95 % (09/12/15 9:55 AM) Problem List Condition Effective Dates Status [...] Daily, # 90 tabs, 1 Refill(s), Pharmacy: [facility] # [id number], 1 tabs Oral Daily Start Date: 03/13/15 Status: OrderedCaltrate 600 + D tabs, Oral, BID, 0 Refill(s) Start Date: 08/03/14 Status: OrderedCeleXA 40 mg oral tablet 40 mg 1 tabs, Oral, Daily, # 90 tabs, 1 Refill(s), Pharmacy: [facility] # [id number], 1 tabs Oral Daily Start Date: 03/13/15 Status: OrderedFlonase 50 mcg/inh nasal spray See Instructions, PLACE ONE SPRAY IN THE EACH NOSTRIL EVERY DAY, # 1 Each, 3 Refill(s), Pharmacy: [facility] #[id number] Start Date: 03/13/15 Status: Orderedfolic acid 1 mg oral tablet 1 mg 1 tabs, Oral, Daily, # 90 tabs, 1 Refill(s), Pharmacy: [facility] # [id number], 1 tabs Oral Daily Start Date: 03/13/15 Status: Orderedlactulose 10 g/15 mL oral syrup 10 g 15 mL, Oral, Daily, as needed for constipation, # 480 mL, 0 Refill(s) Start Date: 03/13/15 Status: Orderedlactulose 10 g/15 mL oral syrup See Instructions, TAKE 30 ML BY MOUTH EVERY DAY, DO NOT USE IF DIARRHEA., # 450 unknown unit, 1 Refill(s), Pharmacy: [facility] #[id number], TAKE 30 ML BY MOUTH EVERY DAY, DO NOT USE IF DIARRHEA. Start Date: 03/13/15 Status: Orderedlevothyroxine 75 mcg (0.075 mg) oral tablet 75 mcg 1 tabs, Oral, Daily, # 90 tabs, 1 Refill(s), Pharmacy: [facility] # [id number], 1 tabs Oral Daily Start Date: 03/13/15 Status: OrderedMiraLax oral powder for reconstitution 17 g 17 g, Oral, Daily, dissolve in water before taking, # 1,530 g, 1 Refill(s) , Pharmacy: [facility] #[id number] Start Date: 03/13/15 Status: Orderedpravastatin 20 mg oral tablet 20 mg 1 tabs, Oral, Bedtime (once a day), # 30 tabs, 5 Refill(s), Pharmacy: [facility] #[id number], 1 tabs Oral Bedtime (once a day) Start Date: 03/13/15 Status: OrderedQUEtiapine 25 mg oral tablet 25 mg 1 tabs, Oral, Daily, # 90 tabs, 1 Refill(s), Pharmacy: [facility] # [id number], 1 tabs Oral Daily Start Date: 03/13/15 Status: OrderedSenna Plus 2 tabs, Oral, Bedtime [...] Extracted from: Title: Office Visit Note Author: Jacqueline Zhang DO Date: 09/12/15 Assessment/Plan Anxiety We did discuss that there are options that she has such as utilizing BuSpar as a when necessary her increasing her Seroquel. She does not wish to pursue these at this time. Ordered: Office Visit Level 4 Est 02922 H/O: CVA (cerebrovascular accident) She is doing well on her statin medication. In regards to hershortness of breath she is unwilling to do any further testing at this time so we will continue t o monitor. He also is unwilling totry an inhaler. Ordered: Office Visit Level 4 Est 07956 Hypertension Doing well, continue current regimen. Labs done yesterday. Ordered: Office Visit Level 4 Est 06194 Thyroid disease Doing well, continue current regimen, labs done yesterday, return to clinic 6 months. Ordered: Office Visit Level 4 Est 87503
--- OUTSIDE RECORDS SUMMARY | 2017-05-31 00:19 | External Medical Summary | Referral Summary ---
:1950 Author Organization [facility] Address [address] [place] [address] Care Team Providers Name Role Phone Jacqueline Zhang Primary Care Physician Encounter [facility] [id number] Date(s): 07/03/16 - 07/03/16 [facility] [address] [place] [address]- [place] Discharge Diagnosis: H/O: CVA (cerebrovascular accident) Discharge Diagnosis: Tobacco user Discharge Diagnosis: Benign essential HTN Discharge Diagnosis: Bradycardia, sinus Discharge Diagnosis: Abnormal EKG Discharge Diagnosis: Encounter for pre-operative cardiovascular clearance Discharge Diagnosis: Morbid obesity Discharge Disposition: 01-Home or Self Care Attending Physician: Francisco Cuello MD Admitting Physician: Francisco Cuello MD Referring Physician: Quinten Burr APRN Vital Signs Most recent to oldest [Reference Range]: 1 Peripheral Pulse Rate [60-100 bpm] 54 bpm *LOW* (07/03/16 10:50 AM) Blood Pressure [90-140/60-90 mmHg] 138/76 mmHg (07/03/16 10:50 AM) Problem List Condition Effective Dates Status [...] # 30 tabs , 0 Refill(s), Pharmacy: [facility] #[id number], TAKE ONE TABLET BY MOUTH DAILY; Pt needs med check Start Date: 06/09/16 Status: Orderedbaclofen 0 Refill(s) Start Date: 07/03/16 Status: OrderedCaltrate 600 + D tabs, Oral, Daily, 0 Refill(s) Start Date: 08/03/14 Status: OrderedCipro 500 mg oral tablet 500 mg 1 tabs, Oral, q12hr, X 7 days, # 14 tabs, 0 Refill(s), Pharmacy: [facility] #[id number], 1 tabs Oral q12hr,x7 days Start Date: 07/01/16 Stop Date: 07/08/16 Status: OrderedCitalopram 40 mg oral tablet See Instructions, TAKE ONE TABLET BY MOUTH DAILY, # 90 tabs, eRx: [facility] #[id number], TAKE ONETABLET BY MOUTH DAILY Start Date: 04/15/16 Status: Orderedfluticasone 50 mcg/inh nasal spray See Instructions, PLACE ONE SPRAY IN EACH NOSTRIL ONCE DAILY, # 16 unknown unit , 2 Refill(s), eRx: [facility] #[id number], PLACE ONE SPRAY IN EACH NOSTRIL ONCE DAILY Start Date: 04/20/16 Status: Orderedfolic acid 1 mg oral tablet See Instructions, TAKE ONE TABLET BY MOUTH DAILY, MUST CALL MD FOR APPOINTMENT , # 30 tabs, 2 Refill(s), eRx: [facility] #[id number], TAKE ONE TABLET BY MOUTH DAILY, MUST CALL MD FOR APPOINTMENT Start Date: 04/14/16 Status: Orderedibuprofen 600 mg oral tablet 600 mg 1 tabs, Oral, q6hr, as needed for pain, 0 Refill(s) Start Date: 05/08/16 Status: Orderedlactulose 10 g/15 mL oral syrup See Instructions, TAKE 30 ML BY MOUTH EVERY DAY, DO NOT USE IF DIARRHEA., # 450 unknown unit, 1 Refill(s), Pharmacy: [facility] #[id number], TAKE 30 ML BY MOUTH EVERY DAY, DO NOT USE IF DIARRHEA. Start Date: 03/13/15 Status: Orderedlevothyroxine 75 mcg (0.075 mg) oral tablet See Instructions, TAKE ONE TABLET BY MOUTH DAILY, # 90 tabs, eRx: [facility] #[id number], TAKE ONETABLET BY MOUTH DAILY Start Date: 04/01/16 Status: OrderedMiraLax oral powder for reconstitution 17 g 17 g, Oral, Daily, dissolve in water before taking, # 1,530 g, 1 Refill(s) , Pharmacy: [facility] #[id number] Start Date: 03/13/15 Status: OrderedMiscellaneous DME DME [...] APPOINTMENT, # 30 tabs, 2 Refill(s), eRx: [facility] #[id number], TAKE ONE TABLET BY MOUTH EVERY NIGHT AT BEDTIME MUST CALL MD FOR APPOINTMENT Start Date: 04/14/16 Status: OrderedQUEtiapine 25 mg oral tablet See Instructions, TAKE ONE TABLET BY MOUTH DAILY, MUST CALL MD FOR APPOINTMENT , # 30 tabs, 2 Refill(s), eRx: [facility] #[id number], TAKE ONE TABLET BY MOUTH DAILY, MUST CALL MD FOR APPOINTMENT Start Date: 04/14/16 Status: OrderedSenna Plus See Instructions, TAKES 1-2 AM AND 2 @ HS, 0 Refill(s) Start Date: 08/07/14 Status: OrderedVitamin B-12 100 mcg oral tablet 1 tabs, Oral, Daily, # 30 tabs, 0 Refill(s) Start Date: 08/03/14 Status: Ordered Results Chemistry Most recent to oldest [Reference Range]: 1 TSH with Reflex Free T4 [0.35-4.94] 1.95 (07/03/16 12:26 PM) Immunizations Given and Recorded Vaccine Date Status [...] Extracted from: Title: Office Visit Note Author: Francisco Cuello MD Date: 07/03/16 Assessment/Plan 1.Encounter for pre-operative cardiovascular clearance No active cardiac issues as defined by ACC/AHA guidelines for marvin- operative management. No known CAD , no CHF, no CKD, no IDDM. she has h/o intra-cranial hemorrhage. EKG today with sinus bradycardia, delayed RWP in the precordial leads. will check echo to evaluate for structural heart disease. She recently had hernia surgery with no complications, overall this is low risk surgery ( pump exchange ) and she is asymptomatic, there is no indication for stress test at this time. furthermore i t would be very challenging to perform stress test with her limited mobility and body habitus with high risk of false positive tests. I discussed in details the potential marvin-operative cardiac complications including but not limited to IN, CHF, CVA and . patientunderstands all the risks and willing to proceed.. Close marvin-operative monitoring, avoid hypotension. Call for any questions or concerns. No need to delay surgery for sinus bradycardia, expect drop in HR with anesthesia, no need to abort surgery as long as she is perfusing well and normal HTN. 2.Abnormal EKG EKG was done today and I personally reviewed tracing. sinusbradycardia , with delayed Rwaves progression in the precordial leads, likely related to body habitus and prior IN, check echo. 3.Bradycardia, sinus consider checking for sleep apnea. currently no indication for PPM. check Holter and echo. check TSH 4.Benign essential HTN BP reasonable control, continue meds 5.Tobacco user she quits years ago. 6.H/O: CVA (cerebrovascular accident) h/o intra cranial hemmorhage. 7.Morbid obesity Patient will follow with me in 6months, sooner if needed. Thank you Dr. Zhangfor allowing me the privilege to participate in the care of your patient. Please do not hesitate to contact me should you have any questions in this regard.
--- OUTSIDE RECORDS SUMMARY | 2017-05-31 00:19 | External Medical Summary | Referral Summary ---
:1950 Author Organization [facility]E Ferrera, [facility] Address [address] [place] [address] [place] [address] Care Team Providers Name Role Phone Jacqueline Zhang Primary Care Physician Encounter VC Date(s): 03/13/15 - 03/13/15 [facility]ILEE Ferrera [address] [place] [phone]- Discharge Diagnosis: Hypertension Discharge Disposition: 01-Home or Self Care Attending [...] Condition Effective Dates Status Health Status Informant CVA (cerebral vascular Active accident)(Confirmed) Paranoia(Confirmed) Active Thyroid disease(Confirmed) Active Hearing loss(Confirmed) Active Hypertension(Confirmed) Active Tobacco user(Confirmed) Active patient Allergies, Adverse Reactions, Alerts No Known Medication Allergies Medications amLODIPine 5 mg oral tablet 5 mg 1 tabs, Oral, Daily, # 90 tabs, 1 Refill(s), Pharmacy: [facility] # [id number], 1 tabs Oral Daily Start Date: 03/13/15 Status: OrderedCaltrate 600 + D tabs, Oral, BID, 0 Refill(s) Start Date: 08/03/14 Status: OrderedCeleXA 40 mg oral tablet 40 mg 1 tabs, Oral, Daily, # 90 tabs, 1 Refill(s), Pharmacy: [facility] # [id number], 1 tabs Oral Daily Start Date: 03/13/15 Status: OrderedFlonase 50 mcg/inh nasal spray See Instructions, PLACE ONE SPRAY IN THE EACH NOSTRIL EVERY DAY, # 1 Each, 3 Refill(s), Pharmacy: [facility] #[id number] Start Date: 03/13/15 Status: Orderedfolic acid 1 mg oral tablet 1 mg 1 tabs, Oral, Daily, # 90 tabs, 1 Refill(s), Pharmacy: [facility] # [id number], 1 tabs Oral Daily Start Date: 03/13/15 Status: Orderedlactulose 10 g/15 mL oral syrup 10 g 15 mL, Oral, Daily, as needed for constipation, # 480 mL, 0 Refill(s) Start Date: 03/13/15 Status: Orderedlactulose 10 g/15 mL oral syrup See Instructions, TAKE 30 ML BY MOUTH EVERY DAY, DO NOT USE IF DIARRHEA., # 450 unknown unit, 1 Refill(s), Pharmacy: [facility] #[id number], TAKE 30 ML BY MOUTH EVERY DAY, DO NOT USE IF DIARRHEA. Start Date: 03/13/15 Status: Orderedlevothyroxine 75 mcg (0.075 mg) oral tablet 75 mcg 1 tabs, Oral, Daily, # 90 tabs, 1 Refill(s), Pharmacy: [facility] # [id number], 1 tabs Oral Daily Start Date: 03/13/15 Status: OrderedMiraLax oral powder for reconstitution 17 g 17 g, Oral, Daily, dissolve in water before taking, # 1,530 g, 1 Refill(s) , Pharmacy: [facility] #[id number] Start Date: 03/13/15 Status: Orderedpravastatin 20 mg oral tablet 20 mg 1 tabs, Oral, Bedtime (once a day), # 30 tabs, 5 Refill(s), Pharmacy: [facility] #[id number], 1 tabs Oral Bedtime (once a day) Start Date: 03/13/15 Status: OrderedQUEtiapine 25 mg oral tablet 25 mg 1 tabs, Oral, Daily, # 90 tabs, 1 Refill(s), Pharmacy: [facility] # [id number], 1 tabs Oral Daily Start Date: 03/13/15 [...] adult vaccine 11/26/10 influenza virus vaccine, inactivated 03/20/14 influenza virus [...]
--- OUTSIDE RECORDS SUMMARY | 2017-05-31 00:19 | External Medical Summary | Referral Summary ---
:1950 Author Organization Via MARILEE Ferrera [address] [place] [address] Care Team Providers Name Role Phone Jacqueline Zhang Primary Care Physician Encounter VC Date(s): 03/05/16 - 03/05/16 [facility]ILEE Ferrera [address] [place] [phone] [place] Discharge Disposition: 01-Home or Self Care Attending Physician: Quinten Burr APRN Admitting Physician: Quinten Burr APRN Vital Signs Most recent to oldest [Reference Range]: 1 Temperature Tympanic [36.6-38.1 degC] 36.8 degC (03/05/16 3:59 PM) Peripheral Pulse Rate [60-100 bpm] 68 bpm (03/05/16 3:59 PM) Respiratory Rate [14-20 br/min] 16 br/min (03/05/16 3:59 PM) Blood Pressure [90-140/60-90 mmHg] 118/72 mmHg (03/05/16 3:59 PM) SpO2 95 % (03/05/16 3:59 PM) Problem List Condition Effective Dates Status [...] DAILY, # 90 tabs, 1 Refill(s), eRx: [facility] #[id number], TAKE ONE TABLET BY MOUTH DAILY Start Date: 11/04/15 Status: OrderedCaltrate 600 + D tabs, Oral, BID, 0 Refill(s) Start Date: 08/03/14 Status: OrderedCeleXA 40 mg oral tablet 40 mg 1 tabs, Oral, Daily, # 90 tabs, 1 Refill(s), Pharmacy: [facility] # [id number], 1 tabs Oral Daily Start Date: 10/01/15 Status: OrderedFlonase 50 mcg/inh nasal spray See Instructions, PLACE ONE SPRAY IN THE EACH NOSTRIL EVERY DAY, # 1 Each, 3 Refill(s), Pharmacy: [facility] #[id number] Start Date: 03/13/15 Status: Orderedfolic acid 1 mg oral tablet See Instructions, TAKE ONE TABLET BY MOUTH DAILY, # 90 tabs, 1 Refill(s), eRx: [facility] #[id number], TAKE ONE TABLET BY MOUTH DAILY Start Date: 09/16/15 Status: Orderedlactulose 10 g/15 mL oral syrup 10 g 15 mL, Oral, Daily, as needed for constipation, # 480 mL, 0 Refill(s) Start Date: 03/13/15 Status: Orderedlactulose 10 g/15 mL oral syrup See Instructions, TAKE 30 ML BY MOUTH EVERY DAY, DO NOT USE IF DIARRHEA., # 450 unknown unit, 1 Refill(s), Pharmacy: [facility] #[id number], TAKE 30 ML BY MOUTH EVERY DAY, DO NOT USE IF DIARRHEA. Start Date: 03/13/15 Status: Orderedlevothyroxine 75 mcg (0.075 mg) oral tablet 75 mcg 1 tabs, Oral, Daily, X 90 days, # 90 tabs, 3 Refill(s), Pharmacy: [facility] #[id number], 1tabs Oral Daily,x90 days Start Date: 10/02/15 Stop Date: 09/26/16 Status: OrderedMiraLax oral powder for reconstitution 17 g 17 g, Oral, Daily, dissolve in water before taking, # 1,530 g, 1 Refill(s) , Pharmacy: [facility] #[id number] Start Date: 03/13/15 Status: OrderedMiscellaneous DME DME Item REPAIR/MOD TO POWER WHEELCHAIR DX Z86.73, See Instructions, # 1 Each, 0 Refill(s), Supply Start Date: 11/28/15 Status: Orderedpravastatin 20 mg oral tablet 20 mg 1 tabs, Oral, Bedtime (once a day), pt due for appointment, # 30 tabs, 0 Refill(s), Pharmacy: [facility] #[id number], 1 tabs Oral Bedtime (once a day), Instr:pt due for appointment Start Date: 02/12/16 Status: OrderedQUEtiapine 25 mg oral tablet See Instructions, TAKE ONE TABLET BY MOUTH DAILY, # 90 tabs, 1 Refill(s), eRx: [facility] #[id number], TAKE ONE TABLET BY MOUTH DAILY Start [...]
--- OUTSIDE RECORDS SUMMARY | 2017-05-31 00:19 | External Medical Summary | Referral Summary ---
:1950 Author Organization [facility] MARILEE Ferrera [address] [place] [address] Care Team Providers Name Role Phone Jacqueline Zhang Primary Care Physician Encounter VC Date(s): 01/08/15 - 01/08/15 [facility]E Ferrera [address] [place] [phone] [place] Discharge Diagnosis: Hypertension Discharge Diagnosis: Paranoia Discharge Diagnosis: Depression Discharge Diagnosis: Thyroid disease Discharge Diagnosis: History of oral cancer Discharge Diagnosis: CVA (cerebral vascular accident) Discharge Disposition: 01-Home or Self Care Attending Physician: Blanca Davis MD Admitting Physician: Blanca Davis MD Vital Signs Most recent to oldest [Reference Range]: 1 Temperature Tympanic [36.6-38.1 degC] 36.8 degC (01/08/15 2:45 PM) Peripheral Pulse Rate [60-100 bpm] 68 bpm (01/08/15 2:45 PM) Respiratory Rate [14-20 br/min] 16 br/min (01/08/15 2:45 PM) Blood Pressure [90-140/60-90 mmHg] 120/60 mmHg (01/08/15 2:45 PM) Problem List Condition Effective Dates Status Health Status Informant CVA (cerebral vascular Active accident)(Confirmed) Paranoia(Confirmed) Active Thyroid disease(Confirmed) Active Hearing loss(Confirmed) Active Hypertension(Confirmed) Active Tobacco user(Confirmed) Active patient Allergies, Adverse Reactions, Alerts No Known Medication Allergies Medications amLODIPine 5 mg oral tablet 5 mg 1 tabs, Oral, Daily, # 90 tabs, 1 Refill(s), Pharmacy: [facility] # [id number], 1 tabs Oral Daily Start Date: 03/13/15 Status: OrderedCaltrate 600 + D tabs, Oral, BID, 0 Refill(s) Start Date: 08/03/14 Status: OrderedCeleXA 40 mg oral tablet 40 mg 1 tabs, Oral, Daily, # 90 tabs, 1 Refill(s), Pharmacy: [facility] # [id number], 1 tabs Oral Daily Start Date: 03/13/15 Status: OrderedFlonase 50 mcg/inh nasal spray See Instructions, PLACE ONE SPRAY IN THE EACH NOSTRIL EVERY DAY, # 1 Each, 3 Refill(s), Pharmacy: [facility] #[id number] Start Date: 03/13/15 Status: Orderedfolic acid 1 mg oral tablet 1 mg 1 tabs, Oral, Daily, # 90 tabs, 1 Refill(s), Pharmacy: [facility] # [id number], 1 tabs Oral Daily Start Date: 03/13/15 Status: Orderedlactulose 10 g/15 mL oral syrup 10 g 15 mL, Oral, Daily, as needed for constipation, # 480 mL, 0 Refill(s) Start Date: 03/13/15 Status: Orderedlactulose 10 g/15 mL oral syrup See Instructions, TAKE 30 ML BY MOUTH EVERY DAY, DO NOT USE IF DIARRHEA., # 450 unknown unit, 1 Refill(s), Pharmacy: [facility] #[id number], TAKE 30 ML BY MOUTH EVERY DAY, DO NOT USE IF DIARRHEA. Start Date: 03/13/15 Status: Orderedlevothyroxine 75 mcg (0.075 mg) oral tablet 75 mcg 1 tabs, Oral, Daily, # 90 tabs, 1 Refill(s), Pharmacy: [facility] # [id number], 1 tabs Oral Daily Start Date: 03/13/15 Status: OrderedMiraLax oral powder for reconstitution 17 g 17 g, Oral, Daily, dissolve in water before taking, # 1,530 g, 1 Refill(s) , Pharmacy: [facility] #[id number] Start Date: 03/13/15 Status: Orderedpravastatin 20 mg oral tablet 20 mg 1 tabs, Oral, Bedtime (once a day), # 30 tabs, 5 Refill(s), Pharmacy: [facility] #[id number], 1 tabs Oral Bedtime (once a day) Start Date: 03/13/15 Status: OrderedQUEtiapine 25 mg oral tablet 25 mg 1 tabs, Oral, Daily, # 90 tabs, 1 Refill(s), Pharmacy: [facility] # [id number], 1 tabs Oral Daily Start Date: 03/13/15 [...] 7 Assessment and Plan Extracted from: Title: Ambulatory Patient Education Author: Blanca Davis MD Date: 01/09/15 Family Medicine Health Maintenance, Female A healthy lifestyle and preventative care can promote health and wellness. Maintain regular health, dental, and eye exams. Eat a healthy diet. Foods like vegetables, fruits, whole grains, low-fat dairy products, and lean protein foods contain the nutrients you need without too many calories. Decrease your intake of shagufta ds high in solid fats, added sugars, and salt. Get information about a proper diet from your caregiver, if necessary. Regular physical exercise is one of the most important things you can do for your health. Most adults should get at least 150 minutes of moderate- intensity exercise (any activity that increases you r heart rate and causes you to sweat) each week. In addition, most adults need muscle-strengthening exercises on 2 or more days a week. Maintain a healthy weight. The body mass index (BMI) is a screening tool to identify possible weight problems. It provides an estimate of body fat based on height and weight. Your caregiver can hel p determine your BMI, and can help you achieve or maintain a healthy weight. For adults 20 years and older: A BMI below 18.5 is considered underweight. A BMI of 18.5 to 24.9 is normal. A BMI of 25 to 29.9 is considered overweight. A BMI of 30 and above is considered obese. Maintain normal blood lipids and cholesterol by exercising and minimizing your intake of saturated fat. Eat a balanced diet with plenty of fruits and vegetables. Blood tests for lipids and choleste rol should begin at age 20 and be repeated every 5 years. If your lipid or cholesterol levels are high, you are over 50, or you are a high risk for heart disease, you may need your cholesterol levels ch ecked more frequently.Ongoing high lipid and cholesterol levels should be treated with medicines if diet and exercise are not effective. If you smoke, find out from your caregiver how to quit. If you do not use tobacco, do not start. Lung cancer screening is recommended for adults aged 5580 years who are at high risk for developing lung cancer because of a history of smoking. Yearly low-dose computed tomography (CT) is recom mended for people who have at least a 40-jvoc-ibkl history of smoking and are a current smoker or have quit within the past 15 years. A pack year of smoking is smoking an average of 1 pack of cigarettes a day for 1 year (for example: 1 pack a day for 30 years or 2 packs a day for 15 years). Yearly screening should continue until the smoker has stopped smoking for at least 15 years. Yearly screening sh ould also be stopped for people who develop a health problem that would prevent them from having lung cancer treatment. If you are , do not drink alcohol. If you are , be very cautious about drinking alcohol. If you are not and choose to drink alcohol, do not exceed 1 drink per day. One drink is considered to be 12 ounces (355 mL) of beer, 5 ounces (148 mL) of wine, or 1.5 ounces (44 mL) of liquor. Avoid use of street drugs. Do not share needles with anyone. Ask for help if you need support or instructions about stopping the use of drugs. High blood pressure causes heart disease and increases the risk of stroke. Blood pressure should be checked at least every 1 to 2 years. Ongoing high blood pressure should be treated with medicines , if weight loss and exercise are not effective. If you are 55 to 79 years old, ask your caregiver if you should take aspirin to prevent strokes. Diabetes screening involves taking a blood sample to check your fasting blood sugar level. This should be done once every 3 years, after age 45, if you are within normal weight and without risk fac tors for diabetes. Testing should be considered at a younger age or be carried out more frequently if you are overweight and have at least 1 risk factor for diabetes. Breast cancer screening is essential preventative care for women. You should practice "breast self-awareness." This means understanding the normal appearance and feel of your breasts and may includ e breast self-examination. Any changes detected, no matter how small, should be reported to a caregiver. Women in their 20s and 30s should have a clinical breast exam (CBE) by a caregiver as part of a [facility] exam every 1 to 3 years. After age 40, women should have a CBE every year. Starting at age 40, women should consider having a mammogram ( breast X-ray) every year. Women who have a family h istory of breast cancer should talk to their caregiver about genetic screening. Women at a high risk of breast cancer should talk to their caregiver about having an MRI and a mammogram every year. Breast cancer gene (BRCA)-related cancer risk assessment is recommended for women who have family members with BRCA-related cancers. BRCA-related cancers include breast, ovarian, tubal, and periton eal cancers. Having family members with these cancers may be associated with an increased risk for harmful changes (mutations) in the breast cancer genes BRCA1 and BRCA2. Results of the assessment will determine the need for genetic counseling and BRCA1 and BRCA2 testing. The Pap test is a screening test for cervical cancer. Women should have a Pap test starting at age 21. Between ages 21 and 29, Pap tests should be repeated every 2 years. Beginning at age 30, you s hould have a Pap test every 3 years as long as the past 3 Pap tests have been normal. If you had a hysterectomy for a problem that was not cancer or a condition that could lead to cancer, then you no lo nger need Pap tests. If you are between ages 65 and 70, and you have had normal Pap tests going back 10 years, you no longer need Pap tests. If you have had past treatment for cervical cancer or a condi tion that could lead to cancer, you need Pap tests and screening for cancer for at least 20 years after your treatment. If Pap tests have been discontinued , risk factors (such as a new sexual partner) n eed to be reassessed to determine if screening should be resumed. Some women have medical problems that increase the chance of getting cervical cancer. In these cases, your caregiver may recommend more frequent screening and Pap tests. The human papillomavirus (HPV) test is an additional test that may be used for cervical cancer screening. The HPV test looks for the virus that can cause the cell changes on the cervix. The cells c ollected during the Pap test can be tested for HPV. The HPV test could be used to screen women aged 30 years and older, and should be used in women of any age who have unclear Pap test results. After th e age of 30, women should have HPV testing at the same frequency as a Pap test. Colorectal cancer can be detected and often prevented. Most routine colorectal cancer screening begins at the age of 50 and continues through age 75. However, your caregiver may recommend screening at an earlier age if you have risk factors for colon cancer. On a yearly basis , your caregiver may provide home test kits to check for hidden blood in the stool. Use of a small camera at the end of a t ube, to directly examine the colon (sigmoidoscopy or colonoscopy), can detect the earliest forms of colorectal cancer. Talk to your caregiver about this at age 50, when routine screening begins. Direct examination of the colon should be repeated every 5 to 10 years through age 75 , unless early forms of pre-cancerous polyps or small growths are found. Hepatitis C blood testing is recommended for all people born from 1945 through 1965 and any individual with known risks for hepatitis C. Practice safe sex. Use condoms and avoid high-risk sexual practices to reduce the spread of sexually transmitted infections (STIs). Sexually active women aged 25 and younger should be checked for C hlamydia, which is a common sexually transmitted infection. Older women with new or multiple partners should also be tested for Chlamydia. Testing for other STIs is recommended if you are sexually active and at increased risk. Osteoporosis is a disease in which the bones lose minerals and strength with aging. This can result in serious bone fractures. The risk of osteoporosis can be identified using a bone density scan. Women ages 65 and over and women at risk for fractures or osteoporosis should discuss screening with their caregivers. Ask your caregiver whether you should be taking a calcium supplement or vitamin D to reduce the rate of osteoporosis. Menopause can be associated with physical symptoms and risks. Hormone replacement therapy is available to decrease symptoms and risks. You should talk to your caregiver about whether hormone replacement therapy is right for you. Use sunscreen. Apply sunscreen liberally and repeatedly throughout the day. You should seek shade when your shadow is shorter than you. Protect yourself by wearing long sleeves, pants, a wide-brimm ed hat, and sunglasses year round, whenever you are outdoors. Notify your caregiver of new moles or changes in moles, especially if there is a change in shape or color. Also notify your caregiver if a mole is larger than the size of a pencil eraser. Stay current with your immunizations. Document Released: 11/30/2011 Document Revised: 09/11/2013 Document Reviewed: 04/18/2014 Exit[employer] Patient Information 2015 [employer]. This information is not intended to replace advice given to you by your health care provider. Make sure you discuss any questions you have with your health care provider. No follow up information was provided. Extracted from: Title: Office Visit Note Author: Blanca Davis MD Date: 01/09/15 Assessment/Plan CVA (cerebral vascular accident) discussed which doc she may follow up with. Meds refilled Depression History of oral cancer Hypertension Paranoia Thyroid disease
--- OUTSIDE RECORDS SUMMARY | 2017-05-31 00:19 | External Medical Summary | Referral Summary ---
:1950 Author Organization Via MARILEE Ferrera [facility] Address [address] [place] [address] Care Team Providers Name Role Phone Jacqueline Zhang Primary Care Physician Encounter VC Date(s): 07/09/16 - 07/09/16 [facility] [address] [place] [address] [place] Discharge Disposition: 01-Home or Self Care Attending Physician: Francisco Cuello MD Admitting Physician: Francisco Cuello MD Vital Signs No [...] FOR APPOINTMENT , # 30 tabs, eRx: [facility] #[id number], TAKE ONE TABLET BY MOUTH DAILY, MUST CALL MD FOR APPOINTMENT Start Date: 07/06/16 Status: Orderedbaclofen 0 Refill(s) Start Date: 07/03/16 Status: OrderedCaltrate 600 + D tabs, Oral, Daily, 0 Refill(s) Start Date: 08/03/14 Status: OrderedCitalopram 40 mg oral tablet See Instructions, TAKE ONE TABLET BY MOUTH DAILY, # 90 tabs, eRx: [facility] #[id number], TAKE ONETABLET BY MOUTH DAILY Start Date: 04/15/16 Status: Orderedfluticasone 50 mcg/inh nasal spray See Instructions, PLACE ONE SPRAY IN EACH NOSTRIL ONCE DAILY, # 16 unknown unit , 2 Refill(s), eRx: [facility] #[id number], PLACE ONE SPRAY IN EACH NOSTRIL ONCE DAILY Start Date: 04/20/16 Status: Orderedfolic acid 1 mg oral tablet See Instructions, TAKE ONE TABLET BY MOUTH DAILY, MUST CALL MD FOR APPOINTMENT , # 30 tabs, eRx: [facility] #[id number] Start Date: 07/09/16 Status: Orderedibuprofen 600 mg oral tablet 600 mg 1 tabs, Oral, q6hr, as needed for pain, 0 Refill(s) Start Date: 05/08/16 Status: Orderedlactulose 10 g/15 mL oral syrup See Instructions, TAKE 30 ML BY MOUTH EVERY DAY, DO NOT USE IF DIARRHEA., # 450 unknown unit, 1 Refill(s), Pharmacy: [facility] #[id number], TAKE 30 ML BY MOUTH EVERY DAY, DO NOT USE IF DIARRHEA. Start Date: 03/13/15 Status: Orderedlevothyroxine 75 mcg (0.075 mg) oral tablet See Instructions, TAKE ONE TABLET BY MOUTH DAILY, # 90 tabs, eRx: [facility] #[id number], TAKE ONETABLET BY MOUTH DAILY Start Date: 04/01/16 Status: OrderedMiraLax oral powder for reconstitution 17 g 17 g, Oral, Daily, dissolve in water before taking, # 1,530 g, 1 Refill(s) , Pharmacy: [facility] #[id number] Start Date: 03/13/15 Status: OrderedMiscellaneous DME DME Item REPAIR/MOD TO POWER WHEELCHAIR DX Z86.73, See Instructions, # 1 Each, 0 Refill(s), Supply Start Date: 11/28/15 Status: Orderedpravastatin 20 mg oral tablet See Instructions, TAKE ONE TABLET BY MOUTH EVERY NIGHT AT BEDTIME MUST CALL MD FOR APPOINTMENT, # 30 tabs, 1 Refill(s), eRx: [facility] #[id number], TAKE ONE TABLET BY MOUTH EVERY NIGHT AT BEDTIME MUST CALL MD FOR APPOINTMENT Start Date: 07/09/16 Status: OrderedQUEtiapine 25 mg oral tablet See Instructions, TAKE ONE TABLET BY MOUTH DAILY, MUST CALL MD FOR APPOINTMENT , # 30 tabs, eRx: [facility] #[id number] Start Date: 07/09/16 Status: OrderedSenna Plus See Instructions, TAKES 1-2 [...]
--- OUTSIDE RECORDS SUMMARY | 2017-05-31 00:19 | External Medical Summary | Referral Summary ---
:1950 Author Organization [facility] Address [address] [place] [address] [place] [address] Care Team Providers Name Role Phone Jacqueline Zhang Primary Care Physician Encounter VC Date(s): 04/08/16 - 04/08/16 [facility] [address] [place] [address] [place] [phone] [phone] Discharge Diagnosis: Umbilical hernia Discharge Diagnosis: Ventral hernia Discharge Disposition: 01-Home or Self Care Attending Physician: Aman Contreras MD Admitting Physician: Aman Contreras MD Referring Physician: Jacqueline Zhang DO Vital Signs Most recent to oldest [Reference Range]: 1 Temperature Tympanic [36.6-38.1 degC] 36.4 degC *LOW* (04/08/16 9:06 AM) Peripheral Pulse Rate [60-100 bpm] 69 bpm (04/08/16 9:06 AM) Blood Pressure [90-140/60-90 mmHg] 116/84 mmHg (04/08/16 9:06 AM) SpO2 92 % (04/08/16 9:06 AM) Problem List Condition Effective Dates Status [...] DAILY, # 90 tabs, 1 Refill(s), eRx: [facility] #[id number], TAKE ONE TABLET BY MOUTH DAILY Start Date: 11/04/15 Status: OrderedCaltrate 600 + D tabs, Oral, Daily, 0 Refill(s) Start Date: 08/03/14 Status: OrderedCeleXA 40 mg oral tablet 40 mg 1 tabs, Oral, Daily, # 90 tabs, 1 Refill(s), Pharmacy: [facility] # [id number], 1 tabs Oral Daily Start Date: 10/01/15 Status: OrderedFlonase 50 mcg/inh nasal spray See Instructions, PLACE ONE SPRAY IN THE EACH NOSTRIL EVERY DAY, # 1 Each, 3 Refill(s), Pharmacy: [facility] #[id number] Start Date: 03/13/15 Status: Orderedfolic acid 1 mg oral tablet 1 mg 1 tabs, Oral, Daily, pt due for appointment, # 30 tabs, 0 Refill(s), Pharmacy: [facility]#[id number], 1 tabs Oral Daily,Instr:pt due for appointment Start Date: 03/17/16 Status: Orderedlactulose 10 g/15 mL oral syrup See Instructions, TAKE 30 ML BY MOUTH EVERY DAY, DO NOT USE IF DIARRHEA., # 450 unknown unit, 1 Refill(s), Pharmacy: [facility] #[id number], TAKE 30 ML BY MOUTH EVERY DAY, DO NOT USE IF DIARRHEA. Start Date: 03/13/15 Status: Orderedlevothyroxine 75 mcg (0.075 mg) oral tablet See Instructions, TAKE ONE TABLET BY MOUTH DAILY, # 90 tabs, eRx: [facility] #[id number], TAKE ONETABLET BY MOUTH DAILY Start Date: 04/01/16 Status: OrderedMiraLax oral powder for reconstitution 17 g 17 g, Oral, Daily, dissolve in water before taking, # 1,530 g, 1 Refill(s) , Pharmacy: [facility] #[id number] Start Date: 03/13/15 Status: OrderedMiscellaneous DME DME Item REPAIR/MOD TO POWER WHEELCHAIR DX Z86.73, See Instructions, # 1 Each, 0 Refill(s), Supply Start Date: 11/28/15 Status: Orderedpravastatin 20 mg oral tablet See Instructions, TAKE ONE TABLET BY MOUTH EVERY NIGHT AT BEDTIME DUE FOR DR. HECTOR, # 30 tabs, eRx:[facility] #[id number], TAKE ONE TABLET BY MOUTH EVERY NIGHT AT BEDTIME DUE FOR DR. DASH. Start Date: 03/16/16 Status: OrderedQUEtiapine 25 mg oral tablet 25 mg 1 tabs, Oral, Daily, due for appointment, # 30 tabs, 0 Refill(s), Pharmacy : [facility] #[id number], 1 tabs Oral Daily,Instr:due for appointment Start Date: 03/17/16 Status: OrderedSenna Plus See Instructions, TAKES 1-2 AM AND 2 @ HS, 0 Refill(s) Start Date: 08/07/14 Status: OrderedVitamin B-12 100 mcg oral tablet 1 tabs, Oral, Daily, # 30 tabs, 0 Refill(s) Start Date: 08/03/14 Status: Ordered Results No data available for this section Immunizations Vaccine Date Refusal Reason hepatitis B adult vaccine 11/26/10 influenza virus vaccine, inactivated 03/12/16 influenza virus vaccine, inactivated 03/28/15 influenza virus [...] Extracted from: Title: Ambulatory Patient Education Author: Aman Contreras MD Date: Surgery Laparoscopic Ventral Hernia Repair Laparoscopic ventral hernia repairis a surgery to fix a ventral hernia. A ventral hernia, also called an incisional hernia, is a bulge of body tissue or intestines that pushes through the front part of the abdomen. This can happen if the connective tissue covering the muscles over the abdomen has a weak spot or is torn because of a surgical cut (incision ) from a previous surgery. Laparoscopic ventr al hernia repair is often done soon after diagnosis to stop the hernia from getting bigger, becoming uncomfortable, or becoming an emergency. This surgery usually takes about 2 hours, but the time can vary greatly. LET YOUR HEALTH CARE PROVIDER KNOW ABOUT: Any allergies you have. All medicines you are taking, including steroids, vitamins, herbs, eye drops, creams, and uvwl-ner-woitoge medicines. Previous problems you or members of your family have had with the use of anesthetics. Any blood disorders you have. Previous surgeries you have had. Medical conditions you have. RISKS AND COMPLICATIONS Generally, laparoscopic ventral hernia repair is a safe procedure. However, as with any surgical procedure, problems can occur. Possible problems include: Bleeding. Trouble passing urine or having a bowel movement after the surgery. Infection. Pneumonia. Blood clots. Pain in the area of the hernia. A bulge in the area of the hernia that may be caused by a collection of fluid. Injury to intestines or other structures in the abdomen. Return of the hernia after surgery. In some cases, your health care provider may need to stop the laparoscopic procedure and do regular, open surgery. This may be necessary for very difficult hernias, when organs are hard to see, or when bleeding problems occur during surgery. BEFORE THE PROCEDURE You may need to have blood tests, urine tests, a chest X-ray, or an electrocardiogram done before the day of the surgery. Ask your health care provider about changing or stopping your regular medicines. This is especially important if you are taking diabetes medicines or blood thinners. You may need to wash with a special type of germ-killing soap. Do not eat or drink anything after midnight the night before the procedure or as directed by your health care provider. Make plans to have someone drive you home after the procedure. PROCEDURE Small monitors will be put on your body. They are used to check your heart, blood pressure, and oxygen level. An IV access tube will be put into a vein in your hand or arm. Fluids and medicine will flow directly into your body through the IV tube. You will be given medicine that makes you go to sleep (general anesthetic). Your abdomen will be cleaned with a special soap to kill any germs on your skin. Once you are asleep, several small incisions will be made in your abdomen. The large space in your abdomen will be filled with air so that it expands. This gives your health care provider more room and a better view. A thin, lighted tube with a tiny camera on the end (laparoscope) is put through a small incision in your abdomen. The camera on the laparoscope sends a picture to a TV screen in the operating hcaparrita m. This gives your health care provider a good view inside your abdomen. Hollow tubes are put through the other small incisions in your abdomen. The tools needed for the procedure are put through these tubes. Your health care provider puts the tissue or intestines that formed the hernia back in place. A screen-like patch (mesh) is used to close the hernia. This helps make the area stronger. Stitches, tacks, or abdi are used to keep the mesh in place. Medicine and a bandage (dressing) or skin glue will be put over the incisions. AFTER THE PROCEDURE You will stay in a recovery area until the anesthetic wears off. Your blood pressure and pulse will be checked often. You may be able to go home the same day or may need to stay in the hospital for 12 days after surgery. Your health care provider will decide when you can go home. You may feel some pain. You may be given medicine for pain. You will be urged to do breathing exercises that involve taking deep breaths. This helps prevent a lung infection after a surgery. You may have to wear compression stockings while you are in the hospital. These stockings help keep blood clots from forming in your legs. This information is not intended to replace advice given to you by your health care provider. Make sure you discuss any questions you have with your health care provider. Document Released: 05/03/2013 Document Revised: 05/22/2014 Document Reviewed: 05/03/2013 [employer] Patient Education 2016 [employer] No follow up information was provided.
--- OUTSIDE RECORDS SUMMARY | 2017-05-31 00:19 | External Medical Summary | Referral Summary ---
:1950 Author Organization [facility] [place] [address] Care Team Providers Name Role Phone LeathaJacqueline Primary Care Physician Encounter VC Date(s): 01/17/15 - 01/17/15 [facility] [place] [phone]- Discharge Disposition: 01-Home or Self Care Attending Physician: Blanca Davis MD Admitting Physician: Blanca Davis MD Vital Signs No data available for this section Problem List Condition Effective Dates Status Health Status Informant CVA (cerebral vascular Active accident)(Confirmed) Paranoia(Confirmed) Active Thyroid disease(Confirmed) Active Hearing loss(Confirmed) Active Hypertension(Confirmed) Active Tobacco user(Confirmed) Active patient Allergies, Adverse Reactions, Alerts No Known Medication Allergies Medications amLODIPine 5 mg oral tablet 5 mg 1 tabs, Oral, Daily, # 90 tabs, 1 Refill(s), Pharmacy: [facility] # [id number], 1 tabs Oral Daily Start Date: 03/13/15 Status: OrderedCaltrate 600 + D tabs, Oral, BID, 0 Refill(s) Start Date: 08/03/14 Status: OrderedCeleXA 40 mg oral tablet 40 mg 1 tabs, Oral, Daily, # 90 tabs, 1 Refill(s), [facility] # [id number], 1 tabs Oral Daily Start Date: 03/13/15 Status: OrderedFlonase 50 mcg/inh nasal spray See Instructions, PLACE ONE SPRAY IN THE EACH NOSTRIL EVERY DAY, # 1 Each, 3 Refill(s), Pharmacy: [facility] #[id number] Start Date: 03/13/15 Status: Orderedfolic acid 1 mg oral tablet 1 mg 1 tabs, Oral, Daily, # 90 tabs, 1 Refill(s), Pharmacy: [facility] # [id number], 1 tabs Oral Daily Start Date: 03/13/15 Status: Orderedlactulose 10 g/15 mL oral syrup 10 g 15 mL, Oral, Daily, as needed for constipation, # 480 mL, 0 Refill(s) Start Date: 03/13/15 Status: Orderedlactulose 10 g/15 mL oral syrup See Instructions, TAKE 30 ML BY MOUTH EVERY DAY, DO NOT USE IF DIARRHEA., # 450 unknown unit, 1 Refill(s), Pharmacy: [facility] #[id number], TAKE 30 ML BY MOUTH EVERY DAY, DO NOT USE IF DIARRHEA. Start Date: 03/13/15 Status: Orderedlevothyroxine 75 mcg (0.075 mg) oral tablet 75 mcg 1 tabs, Oral, Daily, # 90 tabs, 1 Refill(s), Pharmacy: [facility] # [id number], 1 tabs Oral Daily Start Date: 03/13/15 Status: OrderedMiraLax oral powder for reconstitution 17 g 17 g, Oral, Daily, dissolve in water before taking, # 1,530 g, 1 Refill(s) , Pharmacy: [facility] #[id number] Start Date: 03/13/15 Status: Orderedpravastatin 20 mg oral tablet 20 mg 1 tabs, Oral, Bedtime (once a day), # 30 tabs, 5 Refill(s), Pharmacy: [facility] #[id number], 1 tabs Oral Bedtime (once a day) Start Date: 03/13/15 Status: OrderedQUEtiapine 25 mg oral tablet 25 mg 1 tabs, Oral, Daily, # 90 tabs, 1 Refill(s), Pharmacy: [facility] # [id number], 1 tabs Oral Daily Start Date: 03/13/15 [...]
--- OUTSIDE RECORDS SUMMARY | 2017-05-31 00:20 | External Medical Summary | Continuity of Care Document ---
:1950 Author Organization [facility] Allergies Active Description Code Type Severity Reaction Onset Reported/ Identified Relationship Clinical to Patient Status Yes morphine morph Drug Moderate RASH 12/10/2009 ine Aller gy Yes No Known No Drug Unknown N/A 12/10/2009 Intolerances Known Aller Intol gy eranc es Medications Medication Packaging Start Date Stop Date Route Dosage Sig BAG 07/01/2016 07/01/2017 IV LACTATED RINGERS PRE-OP 1000 ML IV SOLN VL 07/01/2016 07/01/2017 IV ceFAZolin 1GM PRE-OP VIAL VL 07/01/2016 07/01/2016 IVP SODIUM CHLORIDE ONCE PF 0.9% 10ML INJ BAG 07/01/2016 07/01/2016 IV LACTATED RINGERS ONCE 1000 ML IV SOLN EA 07/01/2016 07/01/2016 IRR SODIUM CHLORIDE ONCE 0.9% 1000ML IRRIG SOLN VL 07/01/2016 07/01/2016 IVP ceFAZolin 1GM ONCE VIAL VL 07/01/2016 07/01/2016 ID BUPIVACAINE ONCE 0.5% INJ [10 ML] VL 07/01/2016 07/01/2016 ID BUPIVACAINE ONCE 0.5% INJ [10 ML] Problems Date Dx Attending Type Code Diagnosis Diagnosed By Coded 07/01/2016 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 Results Test Result Range 5778-6 - 07/01/16 08:00 Color of Urine Straw Straw Clarity of Urine Hazy Clear Glucose [Presence] in Urine by Test strip Negative Neg Bilirubin.total [Presence] in Urine by Test Negative Neg strip Ketones [Presence] in Urine by Test strip Negative Neg Specific gravity of Urine by Test strip 1.020 1.010-1.030 Hemoglobin [Mass/volume] in Urine by Test Negative Neg strip pH of Urine 6.0 5 - 8 Protein [Presence] in Urine Trace Neg Urobilinogen [Presence] in Urine by Test 0.2 EU/dl 0.2-1.0 strip Nitrite [Presence] in Urine by Test strip Negative Neg Leukocyte esterase [Presence] in Urine by 1+ Neg Test strip Leukocytes [#/volume] in Urine 10-25 0-5 Epithelial cells.squamous [#/area] in Urine 20-40 1-2 sediment by Microscopy high power field Bacteria [#/area] in Urine sediment by 2+ Neg Microscopy high power field 61572-4 - 07/01/16 08:22 Leukocytes [#/volume] in Blood 7.1 x10 4.6 - 10.2 Erythrocytes [#/volume] in Blood 4.05 x10 4.04 - 5.48 Hemoglobin [Mass/volume] in Blood 12.8 g/dl 11.4 - 15.2 Hematocrit [Volume Fraction] of Blood by 38.4 % 34.0 - 46.0 Automated count Erythrocyte mean corpuscular volume [Entitic 94.8 FL 80.0 - 97.0 volume] by Automated count Erythrocyte mean corpuscular hemoglobin 31.6 pg 26.0-34.0 [Entitic mass] by Automated count Erythrocyte mean corpuscular hemoglobin 33.3 g/dl 32.0 - 35.0 concentration [Mass/volume] by Automated count Erythrocyte distribution width [Ratio] by 12.0 % 11.0 - 15.0 Automated count Platelets [#/volume] in Blood 155 x10 142 - 424 Neutrophils/100 leukocytes in Blood 66.0 % 47.3 - 77.1 Lymphocytes/100 leukocytes in Blood 24.8 % 15.0 - 45.8 Monocytes/100 leukocytes in Blood 9.2 % 2.0 - 17.0 2345-7 - 07/01/16 08:22 Glucose [Mass/volume] in Serum or Plasma 99 mg/dl 64 - 112 Urea nitrogen [Mass/volume] in Serum or 19.0 mg/dl 7.3 - 20.2 Plasma Creatinine [Mass/volume] in Serum or Plasma 0.6 mg/dl 0.5 - 0.9 Sodium [Moles/volume] in Serum or Plasma 140 mmol/L 135 - 151 Potassium [Moles/volume] in Serum or Plasma 4.1 mmol/L 3.5 - 5.0 Chloride [Moles/volume] in Serum or Plasma 104 mmol/L 98 - 113 Carbon dioxide, total [Moles/volume] in 30 mmol/L 23 - 34 Venous blood Calcium [Mass/volume] in Serum or Plasma 9.45 mg/dl 8.30 - 10.60 Encounters ACCT No. Visit Discharge Status Pt. Type Provider Facility Loc./Unit Complaint Date/Time [id number] 05/03/2013 05/03/2013 CLS Outpatient 09:24:00 23:59:59 [id number] 03/24/2013 03/24/2013 CLS Outpatient 09:49:00 23:59:59 [id number] 07/01/2016 07/01/2016 DIS Outpatient Jazmin ROD NO KNOWN 07:38:00 10:00:00 TRACEY Spine INJURIES,ot & her muscle Specialty spasm, Hospital chronic spasticity pump at end of life [id number] 07/29/2016 07/29/2016 DIS Outpatient Karma KING, Adonis BARTHOLOMEW 2402 05:09:00 09:30:00 [facility] &
[2017-05-31] MEDS ORDERED: ONDANSETRON 4 MG/2 ML INJECTION IVP ONE (00:52)
[2017-05-31] MEDS: SALINE FLUSH 10ml SYRINGE IVF PRN (01:20)
[2017-05-31] MEDS ORDERED: HYDROCODONE/APAP 5mg/325mg TABLET PO PRN (02:35)
[2017-05-31] MEDS ORDERED: MORPHINE SULFATE 4mg INJECTION IVP PRN (02:35)
[2017-05-31] MEDS ORDERED: ONDANSETRON 4 MG/2 ML INJECTION IVP PRN (02:35)
[2017-05-31 03:33] VITALS: BMI 40.7
--- NOTE | 2017-05-31 04:02 | History & Physical Report ---
History of Present Illness Date: 05/31/17 Chief complaint: Cough, Fever, Weakness HPI: Katya is a pleasant 67 year old CF who presented to the ER with 1-2 days of progressive cough, myalgias, and fevers. She did test positive for Influenza A and proved to be hypoxic on RA at 88%. She also suffers from chronic debility following a remote CVA. She was hypertensive in the ER which improved after triage treatment. Remainder of workup was essentially unrevealing and she is admitted for further evaluation and management. Review of Systems - Constitutional Constitutional: Present: chills, fatigue, fever(s), lethargy - Cardiovascular Cardiovascular: Absent: chest pain, palpitations, dyspnea on exertion - Respiratory Respiratory: Present: cough, chest congestion. Absent: pain on inspiration - Gastrointestinal Gastrointestinal: Absent: abdominal pain, change in bowel habits, diarrhea - Neurological Neurological: Present: focal weakness (Chronic ) Past Medical History Patient Stated Medical History Cerebrovascular Accident Yes Other HEENT Yes: GLASSES Hypertension Yes Other Respiratory Yes: ALLERGIES Other GI Yes: Hernia Hx Incontinence Yes Hx Urinary Tract Infection Yes Surgical History: Hysterectomy, Hernia Family History Updates: Her brother had cancer but he was on a nuclear submarine "back when they handled the uranium themselves". Another brother suffered a stroke. - Social History Smoking status: Former smoker Substance use type: does not use Housing: house (Home health (or some services) are involved with her and her ) Household members: spouse Medications Home Medications Medication Instructions Recorded Confirmed Type Citalopram Hydrobromide 40 mg PO DAILY #0 07/26/09 05/31/17 History [Citalopram HBr] Fluticasone Propionate (Flonase) 0.65 EA NOSTRIL BID #0 07/26/09 History Folic Acid 1 mg PO DAILY #0 07/26/09 05/31/17 History Quetiapine Fumarate [Seroquel] 50 mg PO HS #0 07/26/09 05/31/17 History Sennosides [Senna-Gen] 8.6 mg PO BID #2 07/26/09 05/31/17 History Amlodipine Besylate 5 mg PO DAILY #0 tab 02/05/14 05/31/17 History Levothyroxine Sodium 1 tab PO DAILY #90 05/01/16 05/31/17 History Pravastatin Sodium 1 tab PO DAILY #30 05/01/16 05/31/17 History Allergies Allergy/AdvReac Type Severity Reaction Status Date / Time sulfamethoxazole Allergy Unknown Verified 05/31/17 00:13 trimethoprim Allergy Unknown Verified 05/31/17 00:13 morphine AdvReac Mild FLUSHING Verified 05/31/17 00:13 Exam Vital Signs: Temperature 98.2 F 05/31/17 02:54 Pulse Rate 77 05/31/17 02:54 Respiratory Rate 24 05/31/17 02:54 Blood Pressure 128/65 05/31/17 02:54 Pulse Oximetry 97 05/31/17 02:54 Telemetry Rhythm: Sinus Rhythm Height/Weight/BMI: Height 5 ft 5 in Weight 111 kg Body Mass Index 40.7 - Constitutional Present: no acute distress - Routine HEENT Exam Head: Present: normocephalic, atraumatic ENT: Present: mucous membranes moist - Routine Neck Exam Present: supple - Routine Respiratory Exam Present: rales. Absent: accessory muscle use Comments: Dry cough noted during exam - Routine Cardiovascular Exam Present: RRR, S1, S2 - Routine Abdominal Exam Present: soft, normoactive bowel sounds - Routine Extremities Exam Absent: cyanosis, clubbing, edema - Routine Neurological Exam Present: alert, oriented X3, CN II-XII intact - Routine Psychiatric Exam Present: normal affect, normal thought process - Additional findings Additional findings: Exam performed using telemedicine equipment with the assistance of the bedside RN Results - Labs CBC & Chem 7: 05/31/17 00:10 05/31/17 00:10 Assessment and Plan (1) Hypoxia Current visit: Yes Status: Acute (2) Influenza Current visit: Yes Status: Acute (3) Morbid obesity Problem details: BMI 40.7 kg/m2 Current visit: Yes Status: Chronic (4) HTN (hypertension) Current visit: Yes Status: Acute (5) Debility Current visit: Yes Status: Acute Assessment and Plan: She is admitted to the medical floor for continued oxygen administration as needed and serial examination as well as Tamiflu and IVF and other symptommatic and supportive cares. Will ask for a PT eval in the am, noted that she usually gets around with a wheelchair. She requested DNR status at the time of my evaluation. Will continue her home medications and provide further symptommatic , supportive, and diagnostic cares as the current workup, or changes in her clinical scenerio, indicate. Plan was d/w the pt and she expressed understanding gratitude and a desire to proceed. DVT Prophylaxis: SCD's Resuscitation Status: Do Not Resuscitate - Physician Narrative Physician: Anmol Ly MD Narrative: Date: 05/31/17 Time: 1035 I have independently interviewed and examined pt. Chart reviewed. Case discussed with Nursing and CM. Reviewed above note and concur. CC: cough and fever HPI: 67 y/o female presents to [facility] ED secondary to cough and fever. Symptoms onset about 1 day prior to presentation. Having very harsh cough, not producing sputum. Does note chest and nasal congestion. Denies chest wall pain from cough (which sounds very surprising, given how harsh her cough is during the interview and exam). Denies headache or neck pain. Feeling much more weak in general. No falls or trauma. Ambulated with powered wheel chair at home. Not reporting muscle aches or cramps. No nausea, ab pain, decreased appetite or change in stools. Making normal amount of urine-no pain or discomfort with urination. Denies palpitations or chest heaviness. Has chronic edema, unchanged per her report. Evaluated in ED. Tachycardic. Initial temp 101.6. Initial RA saturation 90%, but did decrease-needing O2 to maintain saturations (and documented 88% saturation while on 2L O2). WBC normal. Sodium slightly elevated. Blood sugar elevated in 130 range. Positive for influenza type A. With patients hypoxia secondary to influenza type A, she was placed in OBS status for further evaluation and supportive care. PMHx: HTN, Hypothyroidism, Hx UX SPECIALIST vasculitis with hemorrhage, Anxiety/Paranoia, Gait instability-motorized wheelchair for ambulation. PSxHx: Hyst, Tubal ligation, Myringotomy, Umbilical and ventral hernia repair. Allergies: Bactrim, MS MEDS: see MAR SHx: since 1973-resides with in [place]. Quit smoking in 74 ( smoked about 7 years). No ETOH. Dr Zhang PCP. FHx: Father had HTN and Ca. Mother had heart disease. Brother had Heart disease. ROS: as in HPI. Remainder of 10 point ROS discussed with patient and negative. EXAM GEN: WDWN obese WF, awake and alert, looks weak an ill. HEENT: NC/AT PERRLA EOMI MMM Neck: Supple, midline, no tracheal deviation Lungs: Decreased bilaterally, coarse upper airway noises. Harsh and frequent cough. CV: Distant, but RRR without M. AB: Soft nt/nd BS decreased. No guarding. EXT: +2 edema to upper/lower EXT Bilaterally. SCD in place SKIN: warm and moist Neuro: CN II-XII intact. Patient moves ext spontaneously PSYCH: awake alert appropriate. Thoughts linear. Speech very slow, but clear. Lab: noted Assessment Acute Hypoxic respiratory insufficiency secondary to influenza type A Influenza Type A Hypernatremia (POA) Hyperglycemia (POA) HTN Hypothyroidism Acute on chronic generalized debility Chronic gait instability-motorized wheelchair for mobility Morbid obesity with BMI 41.1 Plan Patient placed in OBS status for supportive care. Will need to monitor her respiratory status secondary to influenza. If hypoxia not resolving in near future would need to change to inpatient status. Tamiflu for treatment of Influenza. Supplement O2 for respiratory support, weaning as able. IVF initialed at 100 cc/hr to help hydration. Initiate Mucinex DM BID to decrease cough and provide mucolytic effect. Phenergan with Codeine as needed for more severe cough. SCD for DVT prevention. Continue with home medications. DNR as per her wishes. Care to return to Dr Zhang at time of discharge from [facility]. Hospital Course Summary Disclaimer: The visit summary below is not to be considered part of the above Progress Note.
[2017-05-31] MEDS: NS 1,000 ML IV SCH ×2 (07:51→18:18)
[2017-05-31] MEDS: CITALOPRAM 40 MG PO SCH (10:36)
[2017-05-31] MEDS: GUAIFENESIN/D-METHORPHAN 600mg/30mg TABLET PO SCH ×2 (10:36→20:59)
[2017-05-31] MEDS: PROMETHAZINE/CODEINE ORAL LIQUID 5ml PO PRN (10:46)
--- NOTE | 2017-05-31 17:29 | XRay Report ---
Indication: cough PROCEDURE: XR chest 1V: Encounter: Initial Comparison: May 05, 2016 Findings: The lungs are stable in appearance without new focal airspace consolidation. There is no pleural effusion or pneumothorax. The heart size, pulmonary vascularity and mediastinal contours are unchanged. IMPRESSION: Stable appearance of the chest without acute cardiopulmonary disease. .
[2017-05-31] MEDS: --POM--PRAVASTATIN 20 MG TABLET PO SCH (21:00)
[2017-05-31] MEDS: --POM--QUETIAPINE 50 MG TABLET PO SCH (21:00)
[2017-06-01] MEDS: ACETAMINOPHEN 325 MG TABLET PO PRN ×2 (01:23→15:24)
[2017-06-01] MEDS ORDERED: FUROSEMIDE 40 MG/4 ML INJECTION IVP ONE (02:54)
[2017-06-01] MEDS ORDERED: FALL RISK - PHARMACY CONSULT XX ONE (03:50)
[2017-06-01] MEDS: ALBUTEROL 2.5mg/3ml (0.083%) NEB AEROSOL PRN ×3 (03:50→12:25)
[2017-06-01] MEDS: --POM--LEVOTHYROXINE 75 MCG TABLET PO SCH (07:57)
[2017-06-01] MEDS: CITALOPRAM 40 MG PO SCH (09:18)
[2017-06-01] MEDS: --POM--AMLODIPINE 5 MG TABLET PO SCH (09:18)
[2017-06-01] MEDS: GUAIFENESIN/D-METHORPHAN 600mg/30mg TABLET PO SCH ×2 (09:18→22:21)
--- NOTE | 2017-06-01 09:18 | XRay Report ---
Indication: SOA PROCEDURE: XR chest 1V: Encounter: Initial Comparison: May 31, 2017 and May 05, 2016 Findings: There is suggestion of airspace consolidation in the retrocardiac left lower lobe which may have been obscured by overlying monitoring leads on the comparison study. Right lung is clear. No pneumothorax or pleural effusion. Heart size and mediastinal contours are normal. Pulmonary vascularity appears normal. Impression: Left retrocardiac infiltrate could be due to atelectasis or pneumonia. .
[2017-06-01] MEDS: --POM--FOLIC ACID 1 MG TABLET PO SCH (09:19)
--- NOTE | 2017-06-01 11:38 | Progress Note ---
- Date 06/01/17 Subjective: I was asked to see Katya d/t increasing dyspnea and oxygen demands. Early this am she became acutely dyspneic and IVF were dc'd and she was given IV Lasix. Her oxygen was increased to 5L and when I arrived it was up to 14L and she was saturating 88-89%. Since then she was changed to a simple mask and oxygen was decreased to 10L. She denied feeling particularly short of breath. Her caregiver Donita was in the room, and she states that she's been coughing but nothing is coming up. She's had sinus congestion. Her appetite has been very good and Katya denies abdominal pain or nausea. Donita states that her arms and legs are swollen. Objective Vital signs: Temperature 98.7 F 06/01/17 07:44 Pulse Rate 80 05/31/17 23:00 Respiratory Rate 16 06/01/17 08:18 Blood Pressure 167/71 H 06/01/17 07:44 Pulse Oximetry 90 06/01/17 08:18 Height/Weight/BMI: Height 1.65 m Weight 110.6 kg Body Mass Index 40.7 - Constitutional Present: no acute distress, obese - Routine HEENT Exam Eye: Absent: conjunctival icterus ENT: Present: mucous membranes moist - Routine Respiratory Exam Present: rhonchi, crackles - Routine Cardiovascular Exam Present: RRR, S1, S2 - Routine Abdominal Exam Present: distended (mild). Absent: normoactive bowel sounds (hypoactive) - Routine Extremities Exam Present: edema (legs/arms with trace edema) - Routine Skin Exam Present: dry, warm - Routine Neurological Exam Present: alert, normal speech - Routine Psychiatric Exam Present: normal affect, normal thought process, cooperative Results - Labs CBC & Chem 7: 06/01/17 04:39 06/01/17 04:39 Assessment and Plan (1) Influenza Current visit: Yes Status: Acute (2) Hypoxia Current visit: Yes Status: Acute Assessment and Plan: Assessment Acute Hypoxic respiratory insufficiency secondary to influenza type A Influenza Type A Hypernatremia (POA) Hyperglycemia (POA) HTN Hypothyroidism Acute on chronic generalized debility Chronic gait instability-motorized wheelchair for mobility Morbid obesity with BMI 41.1 Macrocytic anemia Plan Pt required urgent IV diuresis with Lasix early this morning and IVF were discontinued. Weight is trending down but still requiring 10L per mask to maintain sats. Will give additional 20 mg Lasix, start scheduled DuoNeb QID and Pulmicort BID treatments. Recheck BMP in am to follow CO2 which was showing increase. Sodium stable at 145. Renal function preserved. Check vitamin B12 due to macrocytic anemia. Change status to inpatient due to worsening hypoxia, needing IV diuretics, high risk for further respiratory decline. Discussed with RN and with Dr. Ly. DVT Prophylaxis: SCD's Resuscitation Status: Do Not Resuscitate - Time spent with patient Time with patient PN: 25 minutes - Physician Narrative Physician: Anmol yL MD Narrative: Date: 06/01/17 Time: 1350 Have independently interviewed and examined pt. Chart reviewed. Cased discussed with my AUTOPSY ASSISTANT. Care plan developed with my supervision; agree with above. O2 needs increasing. Given Lasix overnight. Cough harsh and nonproductive. Some chest wall pain with cough. No nausea or ab pain. Does feel tired and weak. Lungs: decreased, coarse upper airway noises CV: regular EXT: +2 edema MSE: awake alert Plan: IVF stopped and Lasix given secondary to increased hypoxia. Will check ECHO to assess cardiac function. BiPAP to help work of breathing. Will continue with Tamiflu for coverage. Add Rocephin for pulm coverage of bacterial pathogen. With worsening hypoxia, will change to inpatient status. Hospital Course Summary Disclaimer: The visit summary below is not to be considered part of the above Progress Note. Hospital Course: 05/31/17: Admitted to observation status for hypoxia secondary to influenza A. IVF were started; Tamiflu initiated for influenza. Oxygen required to maintain saturations >90%. 06/01/17: Became dyspneic and hypoxic early in the morning and IVF were dc'd and Lasix 40 mg were given. Several hours later she was still requiring 10L of oxygen and crackles were auscultated in the lungs, and add'l Lasix 20 mg IV was administered. Scheduled DuoNeb QID and Pulmicort BID. Status was changed to inpatient.
[2017-06-01] MEDS ORDERED: FUROSEMIDE 20 MG/2 ML INJECTION IVP ONE (11:46)
[2017-06-01] MEDS: SALINE FLUSH 10ml SYRINGE IVF PRN (12:10)
[2017-06-01] MEDS: PROMETHAZINE/CODEINE ORAL LIQUID 5ml PO PRN ×2 (15:24→22:22)
[2017-06-01] MEDS: ALBUTEROL/IPRATROPIUM 2.5mg-0.5mg/3ml NEB AEROSOL SCH ×2 (15:45→21:01)
[2017-06-01] MEDS: BUDESONIDE INH.SOLN 0.5mg/2ml NEB AEROSOL SCH (21:01)
[2017-06-01] MEDS: --POM--QUETIAPINE 50 MG TABLET PO SCH (22:21)
[2017-06-01] MEDS: --POM--PRAVASTATIN 20 MG TABLET PO SCH (22:21)
[2017-06-02] MEDS: --POM--LEVOTHYROXINE 75 MCG TABLET PO SCH (05:49)
[2017-06-02] MEDS: ALBUTEROL/IPRATROPIUM 2.5mg-0.5mg/3ml NEB AEROSOL SCH ×4 (07:26→20:57)
[2017-06-02] MEDS: BUDESONIDE INH.SOLN 0.5mg/2ml NEB AEROSOL SCH ×2 (07:26→20:57)
[2017-06-02] MEDS: GUAIFENESIN/D-METHORPHAN 600mg/30mg TABLET PO SCH ×2 (09:48→22:06)
[2017-06-02] MEDS: CITALOPRAM 40 MG PO SCH (09:48)
[2017-06-02] MEDS: --POM--FOLIC ACID 1 MG TABLET PO SCH (09:48)
[2017-06-02] MEDS: --POM--AMLODIPINE 5 MG TABLET PO SCH (09:48)
--- NOTE | 2017-06-02 13:34 | Progress Note ---
- Date 06/02/17 Subjective: Katya was tired when I visited, and admits to having some shortness of breath. She has a harsh cough, but states that it is not painful and actually helps her feel better. She denies abdominal pain or nausea and has been eating well. On exam a fine red rash was noted to her back but she denies any itching, burning or pain associated with it. She went into A-fib with RVR last night after midnight and spontaneously converted to sinus after a couple of hours. She denies having any symptoms during that time. Objective Vital signs: Temperature 100.3 F 06/02/17 07:57 Pulse Rate 88 06/02/17 08:00 Respiratory Rate 16 06/02/17 10:33 Blood Pressure 125/61 06/02/17 07:57 Pulse Oximetry 99 06/02/17 10:33 Rhythm: Normal Sinus Rhythm Height/Weight/BMI: Weight 110 kg - Constitutional Present: mild distress, well nourished, well developed, obese - Routine HEENT Exam Head: Present: normocephalic Eye: Present: PERRL. Absent: conjunctival icterus, scleral injection ENT: Present: mucous membranes moist, oropharynx clear - Routine Respiratory Exam Present: decreased breath sounds, rhonchi, crackles - Routine Cardiovascular Exam Present: RRR, S1, S2 - Routine Abdominal Exam Present: soft, normoactive bowel sounds, non tender, distended (mild) - Routine Extremities Exam Present: edema (trace pedal edema) - Routine Skin Exam Present: intact, dry, warm - Routine Neurological Exam Present: alert, oriented X3 (at baseline), normal speech - Routine Psychiatric Exam Present: normal thought process, cooperative Results - Labs CBC & Chem 7: 06/02/17 04:20 06/02/17 04:20 Assessment and Plan (1) Influenza Current visit: Yes Status: Acute (2) Hypoxia Current visit: Yes Status: Acute Assessment and Plan: Assessment Acute Hypoxic respiratory insufficiency secondary to influenza type A Influenza Type A Hypernatremia (POA) Hyperglycemia (POA) HTN Hypothyroidism Acute on chronic generalized debility Chronic gait instability-motorized wheelchair for mobility Morbid obesity with BMI 41.1 Macrocytic anemia Plan Telemetry/EKG reviewed - pt had A-fib/flutter with variable rates ranging from 40s-100s. After a couple hours she went into bigeminy (underlying sinus) and then the bigeminy resolved. Serial troponin neg x3. Echo ordered, pending. Will consult Dr. Sagastume - discussed with Breanna Saucedo, who will review the case and see Katya in the morning. Still requiring 5-6L of oxygen to maintain saturations. Continue Tamiflu, DuoNeb , Pulmicort. Vitamin B12 level was 840 (normal). Chemistries overall stable - Na still 145; K 3.6; cr 0.8. CO2 increased to 37 - consider Diamox. DVT Prophylaxis: SCD's Resuscitation Status: Do Not Resuscitate - Physician Narrative Physician: Thad Phillips MD Narrative: Date: 06/02/17 Time: 1650 I have independently interviewed and examined pt. Chart reviewed. Cased discussed with my METHODS ANALYST DATA PROCESSING. Care plan developed with my supervision; agree with above. Patient on 8L O2 but takes it off and c/o her nose being dry. She says she will not use O2 when she goes home and that she is ready to go home. RN says she has not been keeping O2 on. Patient had afib on tele earlier. Lungs: decreased, coarse upper airway noises CV: regular EXT: +2 edema MSE: awake alert Plan: Cardiology consulted. Echo pending. Encouraged patient to keep O2 on and to stay in the hospital. BiPAP available. Will continue with Tamiflu for coverage. Repeat CXR. Hospital Course Summary Disclaimer: The visit summary below is not to be considered part of the above Progress Note. Hospital Course: 05/31/17: Admitted to observation status for hypoxia secondary to influenza A. IVF were started; Tamiflu initiated for influenza. Oxygen required to maintain saturations >90%. 06/01/17: Became dyspneic and hypoxic early in the morning and IVF were dc'd and Lasix 40 mg were given. Several hours later she was still requiring 10L of oxygen and crackles were auscultated in the lungs, and add'l Lasix 20 mg IV was administered. Scheduled DuoNeb QID and Pulmicort BID. Status was changed to inpatient. 06/02/17: Went into A-fib/flutter shortly after midnight with variable rates from 40-100s. She spontaneously converted to sinus. Troponin was negative x3. Dr. Amirani was consulted. Respiratory status improving, but still requiring 5- 6L of oxygen. Vitamin B12 level came back normal at 840. Addendum entered and electronically signed by Terri Mason APRN 06/02/17 13: 50: Thrombocytopenia x2 days - Platelet count has been decreasing, currently 116. Will monitor.
--- NOTE | 2017-06-02 15:07 | Cardiology Consult Note ---
<Breanna Saucedo - Last Filed: 06/03/17 09:49> History of Present Illness Consult date: 06/02/17 Requesting physician: Thad Phillips IV Consult reason: atrial fibrillation Chief complaint: A Fib with RVR History of present illness: Katya is a 67 year old female who presented to [facility] [place] ED secondary to cough and fever. Symptoms onset about 1 day prior to presentation. Having very harsh cough , not producing sputum. Does note chest and nasal congestion. Denied chest wall pain from cough. Feeling much more weak in general. Positive for influenza type A. With patients hypoxia secondary to influenza type A, she was placed in OBS status for further evaluation and supportive care. Early this morning, after midnight she had some A Fib with RVR for several hours before self converting. Dr Sagastume is consulted and appreciates the consult. Review of Systems - Constitutional Constitutional: Present: chills, fatigue, fever(s), weakness - EENMT Eyes: Absent: change in vision Balance: Absent: vertigo Mouth/Throat: Absent: sore throat - Cardiovascular Cardiovascular: Absent: chest pain, palpitations, dyspnea on exertion, orthopnea , heart murmur Vascular: Present: pedal edema - Respiratory Respiratory: Present: cough, chest congestion. 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 Surgical History: Hysterectomy. Tubal ligation. Myringotomy. Umbilical and ventral hernia repair. Family History: Father - of CVA Paternal grandmother - CVA Denies any heart disease or diabetes in direct relatives. - Social History Smoking status: Former smoker Substance use type: does not use Alcohol intake frequency: does not drink Housing: house Household members: spouse Current occupational status: retired Current residence: Apartment/Private Home Medications Home Medications Medication Instructions Recorded Confirmed Type Citalopram Hydrobromide 40 mg PO DAILY #0 07/26/10 05/31/17 History [Citalopram HBr] Fluticasone Propionate (Flonase) 0.65 EA NOSTRIL BID #0 07/26/09 History Folic Acid 1 mg PO DAILY #0 07/26/09 05/31/17 History Quetiapine Fumarate [Seroquel] 50 mg PO HS #0 07/26/09 05/31/17 History Sennosides [Senna-Gen] 8.6 mg PO BID #2 07/26/09 05/31/17 History Amlodipine Besylate 5 mg PO DAILY #0 tab 02/05/14 05/31/17 History Levothyroxine Sodium 1 tab PO DAILY #90 05/01/16 05/31/17 History Pravastatin Sodium 1 tab PO DAILY #30 05/01/16 05/31/17 History Allergies Allergy/AdvReac Type Severity Reaction Status Date / Time [facility] Allergy Severe Rash Verified 06/03/17 18:15 sulfamethoxazole Allergy Unknown Verified 05/31/17 00:13 trimethoprim Allergy Unknown Verified 05/31/17 00:13 morphine AdvReac Mild FLUSHING Verified 05/31/17 00:13 Exam Vital signs: Temperature 100.3 F 06/02/17 07:57 Pulse Rate 88 06/02/17 08:00 Respiratory Rate 16 06/02/17 10:33 Blood Pressure 125/61 06/02/17 07:57 Pulse Oximetry 99 06/02/17 10:33 - Constitutional mild distress, morbidly obese, cooperative - Routine HEENT Exam Head: Present: normocephalic ENT: Present: mucous membranes moist - Routine Neck Exam Absent: JVD, carotid bruit - Routine Chest/Breast/Axilla Exam Chest wall: Absent: tenderness - Routine Respiratory Exam Present: decreased breath sounds, rhonchi, diminished air movement - Routine Cardiovascular Exam Present: RRR, no murmur. Absent: JVD - Routine Abdominal Exam Present: soft, normoactive bowel sounds - Routine Extremities Exam Present: edema - Routine Skin Exam Present: intact, dry, warm - Routine Neurological Exam Present: alert, oriented X3 - Routine Psychiatric Exam Present: normal affect, normal thought process Results 06/03/17 04:29 06/03/17 04:29 Cardiac Enzymes 06/02/17 06/02/17 06/02/17 Range/Units 01:30 04:20 08:45 Troponin I 0.022 D 0.026 0.020 (0-0.12) ng/ml CBC 06/02/17 Range/Units 04:20 WBC 9.6 (4.5-11.0) T/MM3 RBC 3.67 L (4.00-5.20) M/MM3 Hgb 11.3 L (12-16) GM/DL Hct 37.5 (36-46) % Plt Count 116 L (130-400) T/MM3 Neut # (Auto) 7.6 (1.8-7.7) T/MM3 Lymph # (Auto) 1.3 (1-4.8) T/MM3 [place] # (Auto) 0.7 (0-0.8) T/MM3 Eos # (Auto) 0.0 (0-0.5) T/MM3 Baso # (Auto) 0.0 (0-0.2) T/MM3 Comprehensive Metabolic Panel 06/02/17 Range/Units 04:20 Sodium 145 H (134-144) MEQ/L Potassium 3.6 (3.6-5) MEQ/L Chloride 100 (98-107) MEQ/L Carbon Dioxide 37 H (22-30) MEQ/L BUN 14.0 (7-17) MG/DL Creatinine 0.8 (0.7-1.2) MG/DL Glucose 98 (65-110) MG/DL Calcium 8.9 (8.4-10.2) MG/DL Intake and Output 06/02/17 06/02/17 06/02/17 06:59 14:59 22:59 Intake Total 500 / 500 240 / 240 Output Total 750 / 750 400 / 400 Balance -250 / -250 -160 / -160 Intake: Oral 500 / 500 240 / 240 Output: Urine 750 / 750 400 / 400 Other: Urine Appearance Clear Clear Urine Color Yellow Yellow Urine Odor Normal # Voids 1 # Incontinent Voids 1 Weight 242 lb 8.136 oz Patient Weight 06/03/17 06:59 Weight 242 lb 8.136 oz EKG interpretations - EKG EKG results cardiology: sinus rhythm Assessment and Plan - Assessment and Plan (1) Paroxysmal atrial fibrillation Current visit: Yes Status: Acute No previous history of arrhythmia. - EKG to ensure SR - Start Flecainide 100mg now and 50mg BID to prevent further Fib/Flutter. - Check Mag - EKG in am - Patient is not a good candidate for anticoagulation since HGB and Platelets have lower each day this hospitalization. - Continue to monitor cardiac telemetry, labs and EKG Thank you for allowing us the opportunity to participate in this patients care. (2) Influenza Current visit: Yes Status: Acute (3) Hypoxia Current visit: Yes Status: Acute (4) HTN (hypertension) Current visit: Yes Status: Chronic Continue home antihypertensives and continue to monitor. - Assessment and Plan 06/02/16 A Fib: No previous history of arrhythmia. - EKG to ensure SR - Start Flecainide 100mg now and 50mg BID to prevent further Fib/Flutter. - Check Mag - EKG in am - Patient is not a good candidate for anticoagulation since HGB and Platelets have lower each day this hospitalization. - Continue to monitor cardiac telemetry, labs and EKG Thank you for allowing us the opportunity to participate in this patients care. Hospital Course Summary Disclaimer: The visit summary below is not to be considered part of the above Progress Note. Hospital Course: 05/31/17: Admitted to observation status for hypoxia secondary to influenza A. IVF were started; Tamiflu initiated for influenza. Oxygen required to maintain saturations >90%. 06/01/17: Became dyspneic and hypoxic early in the morning and IVF were dc'd and Lasix 40 mg were given. Several hours later she was still requiring 10L of oxygen and crackles were auscultated in the lungs, and add'l Lasix 20 mg IV was administered. Scheduled DuoNeb QID and Pulmicort BID. Status was changed to inpatient. 06/02/17: Went into A-fib/flutter shortly after midnight with variable rates from 40-100s. She spontaneously converted to sinus. Troponin was negative x3. Dr. Sagastume was consulted. Respiratory status improving, but still requiring 5- 6L of oxygen. Vitamin B12 level came back normal at 840. <Bernard Sagastume - Last Filed: 06/07/17 14:49> Exam Vital signs: Temperature 97.9 F 06/07/17 08:49 Pulse Rate 61 06/07/17 09:55 Respiratory Rate 18 06/07/17 11:06 Blood Pressure 136/77 06/07/17 08:49 Pulse Oximetry 94 06/07/17 11:07 Results 06/07/17 04:54 06/07/17 04:54 CBC 06/07/17 Range/Units 04:54 WBC 7.9 (4.5-11.0) T/MM3 RBC 3.72 L (4.00-5.20) M/MM3 Hgb 11.3 L (12-16) GM/DL Hct 37.2 (36-46) % Plt Count 211 D (130-400) T/MM3 Neut # (Auto) 5.0 (1.8-7.7) T/MM3 Lymph # (Auto) 2.0 (1-4.8) T/MM3 [place] # (Auto) 0.7 (0-0.8) T/MM3 Eos # (Auto) 0.1 (0-0.5) T/MM3 Baso # (Auto) 0.0 (0-0.2) T/MM3 Comprehensive Metabolic Panel 06/07/17 Range/Units 04:54 Sodium 147 H (134-144) MEQ/L Potassium 4.1 (3.6-5) MEQ/L Chloride 105 (98-107) MEQ/L Carbon Dioxide 33 H (22-30) MEQ/L BUN 18.0 H (7-17) MG/DL Creatinine 0.7 (0.7-1.2) MG/DL Glucose 93 (65-110) MG/DL Calcium 9.5 (8.4-10.2) MG/DL Intake and Output 06/06/17 06/07/17 06/07/17 22:59 06:59 14:59 Intake Total 540 / 540 100 / 100 400 / 400 Output Total 150 / 150 Balance 390 / 390 100 / 100 400 / 400 Intake: Oral 540 / 540 100 / 100 400 / 400 Output: Urine 150 / 150 Other: Urine Appearance Clear Urine Color Yellow Pale Weight 111.6 kg Patient Weight 06/08/17 06:59 Weight 111.6 kg Assessment and Plan - Attestation Attestation Narrative: 06/07/17 14:49 Recommendation After examining the patient I agree with the above assessment. I am involved in the formulation of the patient's plan of care. - Assessment and Plan (1) Influenza Current visit: Yes Status: Acute (2) Hypoxia Current visit: Yes Status: Acute (3) HTN (hypertension) Current visit: Yes Status: Chronic (4) Paroxysmal atrial fibrillation Current visit: Yes Status: Acute Hospital Course Summary Disclaimer: The visit summary below is not to be considered part of the above Progress Note.
[2017-06-02] MEDS ORDERED: FLECAINIDE 100 MG TABLET PO ONE (15:21)
[2017-06-02] MEDS ORDERED: SALINE 0.65% NASAL SPRAY 44 ML BOTTLE EA NOSTRIL PRN (16:59)
--- NOTE | 2017-06-02 17:09 | Echocardiogram ---
DATE OF STUDY 06/01/2017 INDICATIONS Pulmonary edema. TECHNICAL QUALITY Technically good 2D, M-mode, Doppler echocardiographic images were submitted for interpretation. FINDINGS 1. CARDIAC CHAMBERS: All cardiac chamber measurements are normal. Aortic root diameter is normal. LV size and contractility appear normal. EF 75%. Grade 1/4 diastolic dysfunction is suggested based on inverted E/A ratio of 0.9. MVDT is borderline increased at 282 milliseconds. 2. VALVES: Aortic and mitral valves exhibit slight sclerotic changes. Valve opening is normal. Tricuspid valve structure and motion appear normal with normal valve excursion. 3. DOPPLER: Trace mitral regurgitation. Trace tricuspid regurgitation. Systolic PA pressure estimated at 33-38 mmHg which is borderline increased. Normal flow velocities throughout were measured. Mean gradient across the aortic valve is 7 mmHg with a valve area of 2.55 cm2. IMPRESSION 1. Normal cardiac chamber size. 2. Normal left ventricular systolic function, EF 75%, with borderline findings for mild diastolic dysfunction. Again, left atrial size remains normal. 3. No significant valvular dysfunction. 4. Borderline elevated systolic PA pressure/mild pulmonary hypertension. 5. Left-sided pleural effusion is suggested. MTDD
[2017-06-02] MEDS: FLECAINIDE 100 MG TABLET PO SCH (22:05)
[2017-06-02] MEDS: IBUPROFEN 600 MG TABLET PO PRN (22:07)
[2017-06-02] MEDS: --POM--QUETIAPINE 50 MG TABLET PO SCH (22:08)
[2017-06-02] MEDS: PROMETHAZINE/CODEINE ORAL LIQUID 5ml PO PRN (22:08)
[2017-06-02] MEDS: --POM--PRAVASTATIN 20 MG TABLET PO SCH (22:08)
[2017-06-03] MEDS: --POM--LEVOTHYROXINE 75 MCG TABLET PO SCH (06:55)
[2017-06-03] MEDS: ALBUTEROL/IPRATROPIUM 2.5mg-0.5mg/3ml NEB AEROSOL SCH ×4 (07:13→22:25)
[2017-06-03] MEDS: BUDESONIDE INH.SOLN 0.5mg/2ml NEB AEROSOL SCH ×2 (07:13→22:25)
[2017-06-03] MEDS: CITALOPRAM 40 MG PO SCH (09:04)
[2017-06-03] MEDS: --POM--AMLODIPINE 5 MG TABLET PO SCH (09:04)
[2017-06-03] MEDS: FLECAINIDE 100 MG TABLET PO SCH (09:04)
[2017-06-03] MEDS: --POM--FOLIC ACID 1 MG TABLET PO SCH (09:05)
[2017-06-03] MEDS: GUAIFENESIN/D-METHORPHAN 600mg/30mg TABLET PO SCH ×2 (09:05→20:51)
[2017-06-03] MEDS: PROMETHAZINE/CODEINE ORAL LIQUID 5ml PO PRN ×2 (09:06→20:51)
--- NOTE | 2017-06-03 10:45 | XRay Report ---
Indication: hypoxia PROCEDURE: XR chest 1V: Encounter: Initial Comparison: June 01, 2017 Findings: Left basilar consolidation has improved. No new infiltrates. There is no pleural effusion or pneumothorax. The heart size, pulmonary vascularity and mediastinal contours are unchanged. IMPRESSION: Improving left lower lobe pneumonia. .
[2017-06-03] MEDS ORDERED: POLYETHYL GLYCOL 3350 17gm PACKET PO PRN (13:32)
--- NOTE | 2017-06-03 13:41 | Progress Note ---
- Date 06/03/17 Subjective: At rest she says her breathing is OK. She says her cough is the same. She says it has been a few days since her bowels moved. She denies n/v. Appetite is OK. She says she started having burning with urination last night. Objective Vital signs: Temperature 96.6 F L 06/03/17 08:00 Pulse Rate 91 06/03/17 09:51 Respiratory Rate 18 06/03/17 10:54 Blood Pressure 119/67 06/03/17 09:50 Pulse Oximetry 98 06/03/17 10:54 Rhythm: Normal Sinus Rhythm Height/Weight/BMI: Weight 109.4 kg - Constitutional Present: no acute distress - Routine HEENT Exam Head: Present: normocephalic, atraumatic Eye: Present: EOMI, PERRL ENT: Present: mucous membranes moist - Routine Respiratory Exam Present: decreased breath sounds, crackles - Routine Cardiovascular Exam Present: RRR, no murmur - Routine Abdominal Exam Present: soft, normoactive bowel sounds, non distended, non tender - Routine Extremities Exam Present: edema - Routine Neurological Exam Present: alert, oriented X3 Results - Labs CBC & Chem 7: 06/03/17 04:29 06/03/17 04:29 Microbiology Results: Microbiology 06/03/17 12:19 Urine, Voided (Cc/notcc) Urine Culture - Preliminary Culture Initiated - Results Pending Assessment and Plan (1) Influenza Current visit: Yes Status: Acute (2) Hypoxia Current visit: Yes Status: Acute Assessment and Plan: Assessment Acute Hypoxic respiratory insufficiency secondary to influenza type A Influenza Type A Hypernatremia (POA) Hyperglycemia (POA) HTN Hypothyroidism Acute on chronic generalized debility Chronic gait instability-motorized wheelchair for mobility Morbid obesity with BMI 41.1 Macrocytic anemia UTI Constipation Plan Start Rocephin for UTI and await c&s. Flecainide to try to prevent had A-fib/flutter. Appreciate Dr. Sagastume's assistance. O2 as needed. Continue Tamiflu, DuoNeb, Pulmicort. Schedule Senokot-s. Miralax prn. Na up to 147. Monitor. - Physician Narrative Narrative: Date: 06/03/17 Time: 1329 Hospital Course Summary Disclaimer: The visit summary below is not to be considered part of the above Progress Note. Hospital Course: 05/31/17: Admitted to observation status for hypoxia secondary to influenza A. IVF were started; Tamiflu initiated for influenza. Oxygen required to maintain saturations >90%. 06/01/17: Became dyspneic and hypoxic early in the morning and IVF were dc'd and Lasix 40 mg were given. Several hours later she was still requiring 10L of oxygen and crackles were auscultated in the lungs, and add'l Lasix 20 mg IV was administered. Scheduled DuoNeb QID and Pulmicort BID. Status was changed to inpatient. 06/02/17: Went into A-fib/flutter shortly after midnight with variable rates from 40-100s. She spontaneously converted to sinus. Troponin was negative x3. Dr. Sagastume was consulted. Respiratory status improving, but still requiring 5- 6L of oxygen. Vitamin B12 level came back normal at 840. 06/03/17 13:49 Start Rocephin for UTI and await c&s. Flecainide to try to prevent had A-fib/flutter. Appreciate Dr. Sagastume's assistance. O2 as needed. Continue Tamiflu, DuoNeb, Pulmicort. Schedule Senokot-s. Miralax prn. Na up to 147. Monitor.
[2017-06-03] MEDS ORDERED: CEFTRIAXONE 1 G in NS 100 ML IV SCH (14:00)
--- NOTE | 2017-06-03 15:01 | Cardiology Progress Note ---
<Breanna Saucedo - Last Filed: 06/04/17 17:53> Subjective Principal diagnosis: A Fib with RVR Interval history: Judith is seen in follow up for AFib RVR. She denies feeling palpitations, skipping or funny beats. She denies chest pain or pressure. She has a harsh cough but denies chest pain associated with it. She is able to produce sputum today. Exam Vital signs: Temperature 96.6 F L 06/03/17 08:00 Pulse Rate 91 06/03/17 09:51 Respiratory Rate 18 06/03/17 10:54 Blood Pressure 119/67 06/03/17 09:50 Pulse Oximetry 98 06/03/17 10:54 - Constitutional mild distress, morbidly obese, cooperative - Routine HEENT Exam Head: Present: normocephalic ENT: Present: mucous membranes moist - Routine Neck Exam Absent: JVD, carotid bruit - Routine Chest/Breast/Axilla Exam Chest wall: Absent: tenderness - Routine Respiratory Exam Present: decreased breath sounds, rhonchi. Absent: CTA bilaterally - Routine Cardiovascular Exam Present: no murmur, irregular rhythm - Routine Abdominal Exam Present: soft, normoactive bowel sounds - Routine Extremities Exam Present: edema - Routine Skin Exam Present: intact, dry, warm - Routine Neurological Exam Present: alert, oriented X3 - Routine Psychiatric Exam Present: normal affect, normal thought process - Additional findings Additional findings: Acetaminophen (Tylenol) 325 - 650 mg PO Q5H PRN PRN Reason: Discomfort Last Admin: 06/01/17 15:24 Dose: 650 mg Hydrocodone Bitart/Acetaminophen ([place] 5/325) 1 tab PO Q6H PRN PRN Reason: Pain Albuterol Sulfate (Proventil Neb (0.083%)) 2.5 mg AEROSOL Q4H PRN PRN Reason: Dyspnea Last Admin: 06/01/17 12:25 Dose: 2.5 mg Albuterol/Ipratropium (Duoneb) 3 ml AEROSOL RTQID [facility] Last Admin: 06/03/17 10:51 Dose: 3 ml Amlodipine Besylate (Norvasc) 5 mg PO DAILY [facility] Last Admin: 06/03/17 09:04 Dose: 5 mg Budesonide (Pulmicort Inhalation) 0.5 mg AEROSOL RTBID [facility] Last Admin: 06/03/17 07:13 Dose: 0.5 mg Citalopram Hydrobromide (Celexa) 40 mg PO DAILY [facility] Last Admin: 06/03/17 09:04 Dose: 40 mg Folic Acid (Folate) 1 mg PO DAILY [facility] Last Admin: 06/03/17 09:05 Dose: 1 mg Guaifenesin/Dextromethorphan (Mucinex Dm) 1 tab PO BID [facility] Last Admin: 06/03/17 09:05 Dose: 1 tab Ceftriaxone Sodium 1 g/ Sodium (Chloride) 100 mls @ 200 mls/hr IV Q24H [facility] Ibuprofen (Motrin) 600 mg PO Q6HR PRN PRN Reason: Pain Last Admin: 06/02/17 22:07 Dose: 600 mg Levothyroxine Sodium (Synthroid) 75 mcg PO ACB [facility] Last Admin: 06/03/17 06:55 Dose: 75 mcg Magnesium Hydroxide (Mom) 30 ml PO DAILY PRN PRN Reason: Constipation Morphine Sulfate (Morphine Sulfate Inj) 1 - 2 mg IVP Q2H PRN PRN Reason: Pain Ondansetron HCl (Zofran) 4 mg IVP Q6H PRN PRN Reason: Nausea &/or vomiting Oseltamivir Phosphate (Tamiflu) 75 mg PO BID [facility] Stop: 06/04/17 21:01 Last Admin: 06/03/17 09:05 Dose: 75 mg Polyethylene Glycol (Miralax) 17 gm PO DAILY PRN Pravastatin Sodium (Pravachol) 20 mg PO [facility] Last Admin: 06/02/17 22:08 Dose: 20 mg Promethazine HCl/Codeine (Phenergan + Codeine) 5 ml PO Q6HR PRN PRN Reason: Cough Last Admin: 06/03/17 09:06 Dose: 5 ml Quetiapine Fumarate (Seroquel) 50 mg PO [facility] Last Admin: 06/02/17 22:08 Dose: 50 mg Senna/Docusate Sodium (Senna Plus Tablet) 1 tab PO BID [facility] Sodium Chloride (Iv Flush) 10 - 80 ml IVF PRN PRN PRN Reason: Flushing Last Admin: 06/01/17 12:10 Dose: 10 ml Sodium Chloride (Deep Sea Nasal Moisturizing [place]) 1 spray EA NOSTRIL PRN PRN PRN Reason: Congestion Sotalol HCl (Betapace) 40 mg PO ACBID [facility] Results 01/04/18 04:29 06/03/17 04:29 CBC 06/03/17 Range/Units 04:29 WBC 7.0 (4.5-11.0) T/MM3 RBC 3.49 L (4.00-5.20) M/MM3 Hgb 10.7 L (12-16) GM/DL Hct 35.7 L (36-46) % Plt Count 123 L (130-400) T/MM3 Neut # (Auto) 4.9 (1.8-7.7) T/MM3 Lymph # (Auto) 1.4 (1-4.8) T/MM3 [place] # (Auto) 0.6 (0-0.8) T/MM3 Eos # (Auto) 0.1 (0-0.5) T/MM3 Baso # (Auto) 0.0 (0-0.2) T/MM3 Comprehensive Metabolic Panel 06/03/17 Range/Units 04:29 Sodium 147 H (134-144) MEQ/L Potassium 3.8 (3.6-5) MEQ/L Chloride 102 (98-107) MEQ/L Carbon Dioxide 38 H (22-30) MEQ/L BUN 19.0 H (7-17) MG/DL Creatinine 0.9 (0.7-1.2) MG/DL Glucose 101 (65-110) MG/DL Calcium 9.0 (8.4-10.2) MG/DL Intake and Output 06/02/17 06/03/17 06/03/17 22:59 06:59 14:59 Intake Total 750 / 750 800 / 800 760 / 760 Output Total 50 / 50 400 / 400 Balance 750 / 750 750 / 750 360 / 360 Intake: Oral 750 / 750 800 / 800 760 / 760 Output: Urine 50 / 50 400 / 400 Other: Urine Appearance Cloudy Cloudy Cloudy Urine Color Yellow Light Leonarda Yellow Urine Odor Strong Strong # Voids 1 Weight 241 lb 2.971 oz Patient Weight 06/04/17 06:59 Weight 241 lb 2.971 oz - Imaging and Cardiology Echo: report reviewed Imaging & Cardiology Narrative: Date of Exam: 06/01/17 Type of Exam(s): US echo doppler complete DATE OF STUDY 06/01/2017 INDICATIONS Pulmonary edema. TECHNICAL QUALITY Technically good 2D, M-mode, Doppler echocardiographic images were submitted for interpretation. FINDINGS 1. CARDIAC CHAMBERS: All cardiac chamber measurements are normal. Aortic root diameter is normal. LV size and contractility appear normal. EF 75%. Grade 1/4 diastolic dysfunction is suggested based on inverted E/A ratio of 0.9. MVDT is borderline increased at 282 milliseconds. 2. VALVES: Aortic and mitral valves exhibit slight sclerotic changes. Valve opening is normal. Tricuspid valve structure and motion appear normal with normal valve excursion. 3. DOPPLER: Trace mitral regurgitation. Trace tricuspid regurgitation. Systolic PA pressure estimated at 33-38 mmHg which is borderline increased. Normal flow velocities throughout were measured. Mean gradient across the aortic valve is 7 mmHg with a valve area of 2.55 cm2. IMPRESSION 1. Normal cardiac chamber size. 2. Normal left ventricular systolic function, EF 75%, with borderline findings for mild diastolic dysfunction. Again, left atrial size remains normal. 3. No significant valvular dysfunction. 4. Borderline elevated systolic PA pressure/mild pulmonary hypertension. 5. Left-sided pleural effusion is suggested. 06/03/17 15:01 06/03/17 15:01 Date of Exam: 06/03/17 Ordering Provider: Thad Phillips Type of Exam(s): XR chest 1V Reason for Exam(s): hypoxia Indication: hypoxia PROCEDURE: XR chest 1V: Encounter: Initial Comparison: June 01, 2017 Findings: Left basilar consolidation has improved. No new infiltrates. There is no pleural effusion or pneumothorax. The heart size, pulmonary vascularity and mediastinal contours are unchanged. IMPRESSION: Improving left lower lobe pneumonia. . - EKG Interpretation EKG: sinus rhythm (with frequent PACs) EKG shows: atrial fibrillation Assessment and Plan - Assessment and Plan (1) Influenza Status: Acute (2) Hypoxia Status: Acute (3) HTN (hypertension) Status: Chronic (4) Paroxysmal atrial fibrillation Status: Acute Change Flecainide to Sotalol 40mg BID - Monitor cardiac telemetry - EKG tomorrow after noon - Not a good candidate for anticoagulation due to history of cerebral hemorrhage and acute influenza infection increases her risk of bleeding - Assessment and Plan 06/02/16 A Fib: No previous history of arrhythmia. - EKG to ensure SR - Start Flecainide 100mg now and 50mg BID to prevent further Fib/Flutter. - Check Mag - EKG in am - Patient is not a good candidate for anticoagulation since HGB and Platelets have lower each day this hospitalization. - Continue to monitor cardiac telemetry, labs and EKG Thank you for allowing us the opportunity to participate in this patients care. 06/03/16 A fib:Change Flecainide to Sotalol 40mg BID - Monitor cardiac telemetry - EKG tomorrow after noon - Not a good candidate for anticoagulation due to history of cerebral hemorrhage and acute influenza infection increases her risk of bleeding Hospital Course Summary Disclaimer: The visit summary below is not to be considered part of the above Progress Note. Hospital Course: 05/31/17: Admitted to observation status for hypoxia secondary to influenza A. IVF were started; Tamiflu initiated for influenza. Oxygen required to maintain saturations >90%. 06/01/17: Became dyspneic and hypoxic early in the morning and IVF were dc'd and Lasix 40 mg were given. Several hours later she was still requiring 10L of oxygen and crackles were auscultated in the lungs, and add'l Lasix 20 mg IV was administered. Scheduled DuoNeb QID and Pulmicort BID. Status was changed to inpatient. 06/02/17: Went into A-fib/flutter shortly after midnight with variable rates from 40-100s. She spontaneously converted to sinus. Troponin was negative x3. Dr. Sagastume was consulted. Respiratory status improving, but still requiring 5- 6L of oxygen. Vitamin B12 level came back normal at 840. 06/03/17 13:49 Start Rocephin for UTI and await c&s. Flecainide to try to prevent had A-fib/flutter. Appreciate Dr. Sagastume's assistance. O2 as needed. Continue Tamiflu, DuoNeb, Pulmicort. Schedule Senokot-s. Miralax prn. Na up to 147. Monitor. <Bernard Sagastume - Last Filed: 06/09/17 09:05> Exam Vital signs: Temperature 97.0 F 06/08/17 08:00 Pulse Rate 56 L 06/08/17 08:00 Respiratory Rate 12 06/08/17 08:00 Blood Pressure 138/69 06/08/17 08:00 Pulse Oximetry 93 06/08/17 08:00 Results 06/07/17 04:54 06/08/17 05:16 Assessment and Plan - Assessment and Plan (1) Influenza Status: Acute (2) Hypoxia Status: Acute (3) HTN (hypertension) Status: Chronic (4) Paroxysmal atrial fibrillation Status: Acute - Attestation Attestation Narrative: 06/09/17 09:05 Recommendation After examining the patient I agree with the above assessment. I am involved in the formulation of the patient's plan of care. Hospital Course Summary Disclaimer: The visit summary below is not to be considered part of the above Progress Note.
[2017-06-03] MEDS: SOTALOL 80 MG TABLET PO SCH (18:06)
[2017-06-03] MEDS ORDERED: DiphenhydrAMINE 50 MG/ML INJECTION IVP PRN (18:13)
[2017-06-03] MEDS: SALINE FLUSH 10ml SYRINGE IVF PRN (20:52)
[2017-06-03] MEDS: --POM--PRAVASTATIN 20 MG TABLET PO SCH (20:52)
[2017-06-03] MEDS ORDERED: FLECAINIDE 50 MG TABLET PO SCH (21:00)
[2017-06-03] MEDS: --POM--QUETIAPINE 50 MG TABLET PO SCH (21:11)
[2017-06-03] MEDS: SENNA + DOCUSATE TABLET PO SCH (21:11)
[2017-06-04] MEDS: SOTALOL 80 MG TABLET PO SCH ×2 (06:18→17:35)
[2017-06-04] MEDS: --POM--LEVOTHYROXINE 75 MCG TABLET PO SCH (06:20)
[2017-06-04] MEDS: ALBUTEROL/IPRATROPIUM 2.5mg-0.5mg/3ml NEB AEROSOL SCH ×4 (09:47→21:35)
[2017-06-04] MEDS: SENNA + DOCUSATE TABLET PO SCH ×2 (09:57→21:02)
[2017-06-04] MEDS: GUAIFENESIN/D-METHORPHAN 600mg/30mg TABLET PO SCH ×2 (09:57→21:03)
[2017-06-04] MEDS: --POM--AMLODIPINE 5 MG TABLET PO SCH (09:58)
[2017-06-04] MEDS: CITALOPRAM 40 MG PO SCH (09:58)
[2017-06-04] MEDS: --POM--FOLIC ACID 1 MG TABLET PO SCH (09:59)
[2017-06-04] MEDS ORDERED: NITROFURANTOIN (MACROBID) 100 MG CAPSULE PO SCH (11:51)
--- NOTE | 2017-06-04 14:46 | Progress Note ---
- Date 06/04/17 Subjective: Patient seen sitting in her chair. She has not noted any irregular heart rhythm. No CP. Continues to cough. Appetite is nl. Objective Vital signs: Temperature 97.0 F 06/04/17 11:37 Pulse Rate 53 L 06/04/17 11:37 Respiratory Rate 16 06/04/17 13:34 Blood Pressure 108/60 06/04/17 11:37 Pulse Oximetry 96 06/04/17 11:37 Rhythm: Normal Sinus Rhythm Height/Weight/BMI: Weight 110 kg - Constitutional Present: no acute distress, well nourished, well developed - Routine HEENT Exam Head: Present: normocephalic - Routine Respiratory Exam Present: crackles (diffuse). Absent: wheezes - Routine Cardiovascular Exam Present: RRR. Absent: murmur - Routine Abdominal Exam Present: soft, normoactive bowel sounds, non distended. Absent: tenderness - Routine Extremities Exam Present: no edema, normal capillary refill - Routine Skin Exam Present: dry, warm - Routine Neurological Exam Present: alert, oriented X3 - Routine Lymphatic Exam Lymphatic: Absent: adenopathy - Routine Psychiatric Exam Present: normal affect, cooperative Results - Labs CBC & Chem 7: 06/04/17 04:58 06/04/17 04:58 Microbiology Results: Microbiology 06/03/17 12:19 Urine, Voided (Cc/notcc) Urine Culture - Preliminary Proteus mirabilis Assessment and Plan (1) Influenza Current visit: Yes Status: Acute (2) Hypoxia Current visit: Yes Status: Acute Assessment and Plan: Assessment Acute Hypoxic respiratory insufficiency secondary to influenza type A Influenza Type A Hypernatremia (POA) Hyperglycemia (POA) HTN Hypothyroidism Acute on chronic generalized debility Chronic gait instability-motorized wheelchair for mobility Morbid obesity with BMI 41.1 Macrocytic anemia UTI Constipation Plan Rocephin was DC'd d/t pt developing erythematous rash on her legs. Urine culture grew out proteus (sensitivities pending) - pt started on Macrobid po. Flecainide changed to Sotalol 40mg BID yesterday by Dr. Sagastume. Recent tele showing sinus binh/NSR. O2 requirement down to 6L from 10L from last evening. Vitals and labs stable. - Physician Narrative Physician: Thad Phillips MD Narrative: Date: 06/04/17 Time: 1630 I have independently interviewed and examined pt. Chart reviewed. Cased discussed with my PA. Care plan developed with my supervision; agree with above. Patient up to chair and thinks she is feeling better. No change in cough. On 4L O2. No palpitations. Developed rash on legs after Rocephin given. Lungs: decreased, coarse upper airway noises CV: regular EXT: +2 edema MSE: awake alert Plan: Continue with Tamiflu. Start Augmentin for Proteus UTI. Allergy to Rocephin. Tolerating Sotalol for Afib. Hospital Course Summary Disclaimer: The visit summary below is not to be considered part of the above Progress Note. Hospital Course: 05/31/17: Admitted to observation status for hypoxia secondary to influenza A. IVF were started; Tamiflu initiated for influenza. Oxygen required to maintain saturations >90%. 06/01/17: Became dyspneic and hypoxic early in the morning and IVF were dc'd and Lasix 40 mg were given. Several hours later she was still requiring 10L of oxygen and crackles were auscultated in the lungs, and add'l Lasix 20 mg IV was administered. Scheduled DuoNeb QID and Pulmicort BID. Status was changed to inpatient. 06/02/17: Went into A-fib/flutter shortly after midnight with variable rates from 40-100s. She spontaneously converted to sinus. Troponin was negative x3. Dr. Sagastume was consulted. Respiratory status improving, but still requiring 5- 6L of oxygen. Vitamin B12 level came back normal at 840. 06/03/17 13:49 Start Rocephin for UTI and await c&s. Flecainide to try to prevent had A-fib/flutter. Appreciate Dr. Sagastume's assistance. O2 as needed. Continue Tamiflu, DuoNeb, Pulmicort. Schedule Senokot-s. Miralax prn. Na up to 147. Monitor. 06/04/16 Rocephin was DC'd d/t pt developing erythematous rash on her legs. Urine culture grew out proteus (sensitivities pending) - pt started on Macrobid po. Flecainide changed to Sotalol 40mg BID yesterday by Dr. Sagastume. Recent tele showing sinus binh/NSR. O2 requirement down to 6L from 10L from last evening. Vitals and labs stable.
[2017-06-04] MEDS: BUDESONIDE INH.SOLN 0.5mg/2ml NEB AEROSOL SCH ×2 (16:43→21:35)
[2017-06-04] MEDS: AMOX/CLAV 500 MG/125 MG TABLET PO SCH (17:35)
--- NOTE | 2017-06-04 18:01 | Cardiology Progress Note ---
<Breanna Saucedo - Last Filed: 06/04/17 17:53> Subjective Principal diagnosis: A Fib with RVR Interval history: Judith is seen in follow up for AFib RVR. She remains in SR. She denies chest pain or pressure. Exam Vital signs: Temperature 97.7 F 06/04/17 16:20 Pulse Rate 61 06/04/17 17:35 Respiratory Rate 16 06/04/17 16:44 Blood Pressure 117/60 06/04/17 16:20 Pulse Oximetry 94 06/04/17 16:44 - Constitutional no acute distress, morbidly obese, cooperative - Routine HEENT Exam Head: Present: normocephalic ENT: Present: mucous membranes moist - Routine Neck Exam Absent: JVD, carotid bruit - Routine Chest/Breast/Axilla Exam Chest wall: Absent: tenderness - Routine Respiratory Exam Present: decreased breath sounds. Absent: CTA bilaterally - Routine Cardiovascular Exam Present: RRR, no murmur. Absent: JVD - Routine Abdominal Exam Present: soft, normoactive bowel sounds - Routine Extremities Exam Present: edema - Routine Skin Exam Present: intact, dry, warm - Routine Neurological Exam Present: alert, oriented X3 - Routine Psychiatric Exam Present: normal affect, normal thought process - Additional findings Additional findings: Acetaminophen (Tylenol) 325 - 650 mg PO Q5H PRN PRN Reason: Discomfort Last Admin: 06/01/17 15:24 Dose: 650 mg Hydrocodone Bitart/Acetaminophen ([place] 5/325) 1 tab PO Q6H PRN PRN Reason: Pain Albuterol Sulfate (Proventil Neb (0.083%)) 2.5 mg AEROSOL Q4H PRN PRN Reason: Dyspnea Last Admin: 06/01/17 12:25 Dose: 2.5 mg Albuterol/Ipratropium (Duoneb) 3 ml AEROSOL RTQID [facility] Last Admin: 06/04/17 16:44 Dose: 3 ml Amlodipine Besylate (Norvasc) 5 mg PO DAILY [facility] Last Admin: 06/04/17 09:58 Dose: 5 mg Amoxicillin/Clavulanate Potassium (Augmentin) 500 mg PO BIDWM [facility] Last Admin: 06/04/17 17:35 Dose: 500 mg Budesonide (Pulmicort Inhalation) 0.5 mg AEROSOL RTBID [facility] Last Admin: 06/04/17 16:43 Dose: Not Given Citalopram Hydrobromide (Celexa) 40 mg PO DAILY [facility] Last Admin: 06/04/17 09:58 Dose: 40 mg Diphenhydramine HCl (Benadryl) 25 mg IVP Q4HR PRN PRN Reason: Itching Folic Acid (Folate) 1 mg PO DAILY [facility] Last Admin: 06/04/17 09:59 Dose: 1 mg Guaifenesin/Dextromethorphan (Mucinex Dm) 1 tab PO BID [facility] Last Admin: 06/04/17 09:57 Dose: 1 tab Ibuprofen (Motrin) 600 mg PO Q6HR PRN PRN Reason: Pain Last Admin: 06/02/17 22:07 Dose: 600 mg Levothyroxine Sodium (Synthroid) 75 mcg PO ACB [facility] Last Admin: 06/04/17 06:20 Dose: 75 mcg Magnesium Hydroxide (Mom) 30 ml PO DAILY PRN PRN Reason: Constipation Morphine Sulfate (Morphine Sulfate Inj) 1 - 2 mg IVP Q2H PRN PRN Reason: Pain Ondansetron HCl (Zofran) 4 mg IVP Q6H PRN PRN Reason: Nausea &/or vomiting Oseltamivir Phosphate (Tamiflu) 75 mg PO BID [facility] Stop: 06/04/17 21:01 Last Admin: 06/04/17 09:57 Dose: 75 mg Polyethylene Glycol (Miralax) 17 gm PO DAILY PRN Pravastatin Sodium (Pravachol) 20 mg PO HS [facility] Last Admin: 06/03/17 20:52 Dose: 20 mg Promethazine HCl/Codeine (Phenergan + Codeine) 5 ml PO Q6HR PRN PRN Reason: Cough Last Admin: 06/03/17 20:51 Dose: 5 ml Quetiapine Fumarate (Seroquel) 50 mg PO HS [facility] Last Admin: 06/03/17 21:11 Dose: 50 mg Senna/Docusate Sodium (Senna Plus Tablet) 1 tab PO BID [facility] Last Admin: 06/04/17 09:57 Dose: 1 tab Sodium Chloride (Iv Flush) 10 - 80 ml IVF PRN PRN PRN Reason: Flushing Last Admin: 06/03/17 20:52 Dose: 10 ml Sodium Chloride (Deep Sea Nasal Moisturizing [place]) 1 spray EA NOSTRIL PRN PRN PRN Reason: Congestion Sotalol HCl (Betapace) 40 mg PO ACBID [facility] Last Admin: 06/04/17 17:35 Dose: 40 mg Results 06/04/17 04:58 06/04/17 04:58 CBC 06/04/17 Range/Units 04:58 WBC 8.1 (4.5-11.0) T/MM3 RBC 3.51 L (4.00-5.20) M/MM3 Hgb 10.6 L (12-16) GM/DL Hct 36.1 (36-46) % Plt Count 130 (130-400) T/MM3 Neut # (Auto) 6.2 (1.8-7.7) T/MM3 Lymph # (Auto) 1.2 (1-4.8) T/MM3 [place] # (Auto) 0.6 (0-0.8) T/MM3 Eos # (Auto) 0.2 (0-0.5) T/MM3 Baso # (Auto) 0.0 (0-0.2) T/MM3 Comprehensive Metabolic Panel 06/04/17 Range/Units 04:58 Sodium 143 (134-144) MEQ/L Potassium 3.8 (3.6-5) MEQ/L Chloride 101 (98-107) MEQ/L Carbon Dioxide 36 H (22-30) MEQ/L BUN 20.0 H (7-17) MG/DL Creatinine 0.7 D (0.7-1.2) MG/DL Glucose 90 (65-110) MG/DL Calcium 8.6 (8.4-10.2) MG/DL Intake and Output 06/04/17 06/04/17 06/04/17 06:59 14:59 22:59 Intake Total 700 / 700 240 / 240 Output Total 250 / 250 400 / 400 Balance 700 / 700 -10 / -10 -400 / -400 Intake: Oral 700 / 700 240 / 240 Output: Urine 250 / 250 400 / 400 Other: Urine Appearance Clear Cloudy Urine Color Straw Light [place] Urine Odor Strong Weight 242 lb 8.136 oz Patient Weight 06/05/17 06:59 Weight 242 lb 8.136 oz - Imaging and Cardiology EKG results: image reviewed - EKG Interpretation EKG: sinus rhythm Assessment and Plan - Assessment and Plan (1) Influenza Status: Acute (2) Hypoxia Status: Acute (3) HTN (hypertension) Status: Chronic (4) Paroxysmal atrial fibrillation Status: Acute - Assessment and Plan 06/02/16 A Fib: No previous history of arrhythmia. - EKG to ensure SR - Start Flecainide 100mg now and 50mg BID to prevent further Fib/Flutter. - Check Mag - EKG in am - Patient is not a good candidate for anticoagulation since HGB and Platelets have lower each day this hospitalization. - Continue to monitor cardiac telemetry, labs and EKG Thank you for allowing us the opportunity to participate in this patients care. 06/03/16 A fib:Change Flecainide to Sotalol 40mg BID - Monitor cardiac telemetry - EKG tomorrow after noon - Not a good candidate for anticoagulation due to history of cerebral hemorrhage and acute influenza infection increases her risk of bleeding 06/04/16 Arrhythmia greatly improved with Sotalol - Repeat EKG daily due to Tamiflu which can cause prolonged QT Hospital Course Summary Disclaimer: The visit summary below is not to be considered part of the above Progress Note. Hospital Course: 05/31/17: Admitted to observation status for hypoxia secondary to influenza A. IVF were started; Tamiflu initiated for influenza. Oxygen required to maintain saturations >90%. 06/01/17: Became dyspneic and hypoxic early in the morning and IVF were dc'd and Lasix 40 mg were given. Several hours later she was still requiring 10L of oxygen and crackles were auscultated in the lungs, and add'l Lasix 20 mg IV was administered. Scheduled DuoNeb QID and Pulmicort BID. Status was changed to inpatient. 06/02/17: Went into A-fib/flutter shortly after midnight with variable rates from 40-100s. She spontaneously converted to sinus. Troponin was negative x3. Dr. Sagastume was consulted. Respiratory status improving, but still requiring 5- 6L of oxygen. Vitamin B12 level came back normal at 840. 06/03/17 13:49 Start Rocephin for UTI and await c&s. Flecainide to try to prevent had A-fib/flutter. Appreciate Dr. Sagastume's assistance. O2 as needed. Continue Tamiflu, DuoNeb, Pulmicort. Schedule Senokot-s. Miralax prn. Na up to 147. Monitor. <Amirani,Bernard - Last Filed: 06/09/17 09:29> Exam Vital signs: Temperature 97.0 F 06/08/17 08:00 Pulse Rate 56 L 06/08/17 08:00 Respiratory Rate 12 06/08/17 08:00 Blood Pressure 138/69 06/08/17 08:00 Pulse Oximetry 93 06/08/17 08:00 Results 06/07/17 04:54 06/08/17 05:16 Assessment and Plan - Assessment and Plan (1) Influenza Status: Acute (2) Hypoxia Status: Acute (3) HTN (hypertension) Status: Chronic (4) Paroxysmal atrial fibrillation Status: Acute - Attestation Attestation Narrative: 06/09/17 09:29 Recommendation After examining the patient I agree with the above assessment. I am involved in the formulation of the patient's plan of care. Hospital Course Summary Disclaimer: The visit summary below is not to be considered part of the above Progress Note.
[2017-06-04] MEDS: IBUPROFEN 600 MG TABLET PO PRN (21:02)
[2017-06-04] MEDS: PROMETHAZINE/CODEINE ORAL LIQUID 5ml PO PRN (21:03)
[2017-06-04] MEDS: --POM--PRAVASTATIN 20 MG TABLET PO SCH (21:03)
[2017-06-04] MEDS: --POM--QUETIAPINE 50 MG TABLET PO SCH (21:06)
[2017-06-05] MEDS: SOTALOL 80 MG TABLET PO SCH ×2 (06:48→17:59)
[2017-06-05] MEDS: --POM--LEVOTHYROXINE 75 MCG TABLET PO SCH (06:51)
[2017-06-05] MEDS: ALBUTEROL/IPRATROPIUM 2.5mg-0.5mg/3ml NEB AEROSOL SCH ×4 (07:09→19:57)
[2017-06-05] MEDS: BUDESONIDE INH.SOLN 0.5mg/2ml NEB AEROSOL SCH ×2 (07:09→19:57)
[2017-06-05] MEDS: AMOX/CLAV 500 MG/125 MG TABLET PO SCH ×2 (09:06→17:56)
[2017-06-05] MEDS: GUAIFENESIN/D-METHORPHAN 600mg/30mg TABLET PO SCH ×2 (09:07→21:53)
[2017-06-05] MEDS: SENNA + DOCUSATE TABLET PO SCH ×2 (09:07→21:53)
[2017-06-05] MEDS: --POM--AMLODIPINE 5 MG TABLET PO SCH (09:07)
[2017-06-05] MEDS: CITALOPRAM 40 MG PO SCH (09:07)
[2017-06-05] MEDS: --POM--FOLIC ACID 1 MG TABLET PO SCH (09:08)
[2017-06-05] MEDS: NS 1,000 ML IV SCH (10:54)
--- NOTE | 2017-06-05 11:57 | Progress Note ---
- Date 06/05/17 Subjective: Patient up to chair and sleeping. Awakens. Says she is doing well. Continued cough. No new complaints. CXR stable. Objective Vital signs: Temperature 95.9 F L 06/05/17 08:48 Pulse Rate 55 L 06/05/17 08:48 Respiratory Rate 16 06/05/17 10:53 Blood Pressure 144/74 H 06/05/17 08:48 Pulse Oximetry 100 06/05/17 10:53 Rhythm: Normal Sinus Rhythm Height/Weight/BMI: Weight 109.2 kg - Constitutional Present: no acute distress, mild distress - Routine HEENT Exam Head: Present: normocephalic, atraumatic Eye: Present: EOMI, PERRL ENT: Present: mucous membranes moist - Routine Respiratory Exam Present: diminished air movement - Routine Cardiovascular Exam Present: RRR, no murmur - Routine Abdominal Exam Present: soft, normoactive bowel sounds, non distended, non tender - Routine Extremities Exam Present: edema - Routine Skin Exam Present: rash (bilateral shins with erythema, no warmth or tenderness) - Routine Neurological Exam Present: alert, oriented X3, moving all extremities - Routine Psychiatric Exam Present: cooperative Results - Labs CBC & Chem 7: 06/05/17 05:17 06/05/17 05:17 Microbiology Results: Microbiology 06/03/17 12:19 Urine, Voided (Cc/notcc) Urine Culture - Final Proteus mirabilis Assessment and Plan (1) Influenza Current visit: Yes Status: Acute (2) Hypoxia Current visit: Yes Status: Acute Assessment and Plan: Assessment Acute Hypoxic respiratory insufficiency secondary to influenza type A Influenza Type A Hypernatremia (POA) Hyperglycemia (POA) HTN Hypothyroidism Acute on chronic generalized debility Chronic gait instability-motorized wheelchair for mobility Morbid obesity with BMI 41.1 Macrocytic anemia UTI Constipation Plan Respiratory sx improving. On 4L. Continue duonebs, Pulmicort Sensitivities back, on Augmentin for Proteus UTI. Rocephin was DC'd d/t pt developing erythematous rash on her legs. Na trending up. Monitor Flecainide changed to Sotalol 40mg BID by Dr. Sagastume. Vitals and labs stable. - Physician Narrative Narrative: Date: 06/05/17 Time: 1152 Hospital Course Summary Disclaimer: The visit summary below is not to be considered part of the above Progress Note. Hospital Course: 05/31/17: Admitted to observation status for hypoxia secondary to influenza A. IVF were started; Tamiflu initiated for influenza. Oxygen required to maintain saturations >90%. 06/01/17: Became dyspneic and hypoxic early in the morning and IVF were dc'd and Lasix 40 mg were given. Several hours later she was still requiring 10L of oxygen and crackles were auscultated in the lungs, and add'l Lasix 20 mg IV was administered. Scheduled DuoNeb QID and Pulmicort BID. Status was changed to inpatient. 06/02/17: Went into A-fib/flutter shortly after midnight with variable rates from 40-100s. She spontaneously converted to sinus. Troponin was negative x3. Dr. Sagastume was consulted. Respiratory status improving, but still requiring 5- 6L of oxygen. Vitamin B12 level came back normal at 840. 06/03/17 13:49 Start Rocephin for UTI and await c&s. Flecainide to try to prevent had A-fib/flutter. Appreciate Dr. Sagastume's assistance. O2 as needed. Continue Tamiflu, DuoNeb, Pulmicort. Schedule Senokot-s. Miralax prn. Na up to 147. Monitor. 06/05 Na trending up. Sensitivities back, on Augmentin for Proteus UTI. Rocephin was DC'd d/t pt developing erythematous rash on her legs.
[2017-06-05] MEDS: --POM--PRAVASTATIN 20 MG TABLET PO SCH (21:53)
[2017-06-05] MEDS: --POM--QUETIAPINE 50 MG TABLET PO SCH (21:53)
--- NOTE | 2017-06-06 00:39 | Cardiology Progress Note ---
<Estelle Chung - Last Filed: 06/06/17 14:17> Subjective Principal diagnosis: A Fib with RVR Interval history: Judith is seen in follow up for AFib RVR. She remains in SR. She denies chest pain or pressure. Exam Vital signs: Temperature 98.5 F 06/05/17 23:48 Pulse Rate 64 06/05/17 23:48 Respiratory Rate 20 06/05/17 23:48 Blood Pressure 140/71 H 06/05/17 23:48 Pulse Oximetry 94 06/05/17 23:48 - Constitutional no acute distress - Routine HEENT Exam Head: Present: normocephalic ENT: Present: mucous membranes moist - Routine Neck Exam Absent: JVD, carotid bruit - Routine Respiratory Exam Present: rhonchi, diminished air movement - Routine Cardiovascular Exam Present: RRR, no murmur - Routine Abdominal Exam Present: soft, normoactive bowel sounds, distended - Routine Extremities Exam Present: edema (mild bilateral LE), pulses intact - Routine Neurological Exam Present: alert, oriented X3 - Routine Psychiatric Exam Present: normal affect, normal thought process Results 06/05/17 05:17 06/06/17 05:18 Cardiac Enzymes 06/05/17 Range/Units 05:17 AST 23 (14-36) U/L CBC 06/05/17 Range/Units 05:17 WBC 6.5 (4.5-11.0) T/MM3 RBC 3.36 L (4.00-5.20) M/MM3 Hgb 10.4 L (12-16) GM/DL Hct 34.6 L (36-46) % Plt Count 149 (130-400) T/MM3 Neut # (Auto) 4.1 (1.8-7.7) T/MM3 Lymph # (Auto) 1.6 (1-4.8) T/MM3 [place] # (Auto) 0.6 (0-0.8) T/MM3 Eos # (Auto) 0.2 (0-0.5) T/MM3 Baso # (Auto) 0.0 (0-0.2) T/MM3 Comprehensive Metabolic Panel 06/05/17 Range/Units 05:17 Sodium 146 H (134-144) MEQ/L Potassium 3.7 (3.6-5) MEQ/L Chloride 105 (98-107) MEQ/L Carbon Dioxide 36 H (22-30) MEQ/L BUN 17.0 (7-17) MG/DL Creatinine 0.8 (0.7-1.2) MG/DL Glucose 89 (65-110) MG/DL Calcium 9.1 (8.4-10.2) MG/DL AST 23 (14-36) U/L ALT 28 (9-52) U/L Alkaline Phosphatase 60 (38-126) U/L Total Protein 6.2 L (6.3-8.2) G/DL Albumin 3.2 L (3.5-5.0) G/DL Intake and Output 06/05/17 06/05/17 06/06/17 14:59 22:59 06:59 Intake Total 200 / 200 540 / 540 Balance 200 / 200 540 / 540 Intake: Oral 200 / 200 540 / 540 Other: Urine Appearance Clear Urine Color Pale Yellow # Voids 1 Weight 109.2 kg Patient Weight 06/06/17 06:59 Weight 109.2 kg - Imaging and Cardiology EKG results: image reviewed - EKG Interpretation EKG: sinus rhythm (QT 448) Assessment and Plan - Assessment and Plan (1) Influenza Status: Acute (2) Hypoxia Status: Acute (3) HTN (hypertension) Status: Chronic (4) Paroxysmal atrial fibrillation Status: Acute - Assessment and Plan 06/02/16 A Fib: No previous history of arrhythmia. - EKG to ensure SR - Start Flecainide 100mg now and 50mg BID to prevent further Fib/Flutter. - Check Mag - EKG in am - Patient is not a good candidate for anticoagulation since HGB and Platelets have lower each day this hospitalization. - Continue to monitor cardiac telemetry, labs and EKG Thank you for allowing us the opportunity to participate in this patients care. 06/03/16 A fib:Change Flecainide to Sotalol 40mg BID - Monitor cardiac telemetry - EKG tomorrow after noon - Not a good candidate for anticoagulation due to history of cerebral hemorrhage and acute influenza infection increases her risk of bleeding 06/04/16 Arrhythmia greatly improved with Sotalol - Repeat EKG daily due to Tamiflu which can cause prolonged QT 06/05/16 SR on tele, rate 60's no ectopy noted ECG this am SR QT stable at 448 Continue Sotalol 40mg bid Not an anticoagulate candidate due to personal hx of intracranial bleed. Hospital Course Summary Disclaimer: The visit summary below is not to be considered part of the above Progress Note. Hospital Course: 05/31/17: Admitted to observation status for hypoxia secondary to influenza A. IVF were started; Tamiflu initiated for influenza. Oxygen required to maintain saturations >90%. 06/01/17: Became dyspneic and hypoxic early in the morning and IVF were dc'd and Lasix 40 mg were given. Several hours later she was still requiring 10L of oxygen and crackles were auscultated in the lungs, and add'l Lasix 20 mg IV was administered. Scheduled DuoNeb QID and Pulmicort BID. Status was changed to inpatient. 06/02/17: Went into A-fib/flutter shortly after midnight with variable rates from 40-100s. She spontaneously converted to sinus. Troponin was negative x3. Dr. Sagastume was consulted. Respiratory status improving, but still requiring 5- 6L of oxygen. Vitamin B12 level came back normal at 840. 06/03/17 13:49 Start Rocephin for UTI and await c&s. Flecainide to try to prevent had A-fib/flutter. Appreciate Dr. Sagastume's assistance. O2 as needed. Continue Tamiflu, DuoNeb, Pulmicort. Schedule Senokot-s. Miralax prn. Na up to 147. Monitor. 06/05 Na trending up. Sensitivities back, on Augmentin for Proteus UTI. Rocephin was DC'd d/t pt developing erythematous rash on her legs. <Bernard Sagastume - Last Filed: 06/09/17 09:10> Exam Vital signs: Temperature 97.0 F 06/08/17 08:00 Pulse Rate 56 L 06/08/17 08:00 Respiratory Rate 12 06/08/17 08:00 Blood Pressure 138/69 06/08/17 08:00 Pulse Oximetry 93 06/08/17 08:00 Results 06/07/17 04:54 06/08/17 05:16 Assessment and Plan - Assessment and Plan (1) Influenza Status: Acute (2) Hypoxia Status: Acute (3) HTN (hypertension) Status: Chronic (4) Paroxysmal atrial fibrillation Status: Acute - Attestation Attestation Narrative: 06/09/17 09:10 Recommendation After examining the patient I agree with the above assessment. I am involved in the formulation of the patient's plan of care. Hospital Course Summary Disclaimer: The visit summary below is not to be considered part of the above Progress Note.
[2017-06-06] MEDS: SOTALOL 80 MG TABLET PO SCH ×2 (06:29→16:29)
[2017-06-06] MEDS: --POM--LEVOTHYROXINE 75 MCG TABLET PO SCH (06:29)
[2017-06-06] MEDS: ALBUTEROL/IPRATROPIUM 2.5mg-0.5mg/3ml NEB AEROSOL SCH ×4 (07:50→20:52)
[2017-06-06] MEDS: BUDESONIDE INH.SOLN 0.5mg/2ml NEB AEROSOL SCH ×2 (07:50→20:52)
[2017-06-06] MEDS: SENNA + DOCUSATE TABLET PO SCH ×2 (08:59→21:11)
[2017-06-06] MEDS: GUAIFENESIN/D-METHORPHAN 600mg/30mg TABLET PO SCH ×2 (08:59→21:37)
[2017-06-06] MEDS: AMOX/CLAV 500 MG/125 MG TABLET PO SCH ×2 (08:59→16:31)
[2017-06-06] MEDS: --POM--AMLODIPINE 5 MG TABLET PO SCH (09:00)
[2017-06-06] MEDS: CITALOPRAM 40 MG PO SCH (09:00)
[2017-06-06] MEDS: --POM--FOLIC ACID 1 MG TABLET PO SCH (09:00)
--- NOTE | 2017-06-06 10:16 | XRay Report ---
Indication: cough PROCEDURE: XR chest 1V: Encounter: Initial Comparison: June 03, 2017 FINDINGS: Aeration of the left lower lobe continues to improve. No new or worsening airspace disease. The heart size, pulmonary vasculature and mediastinum are within normal limits. No significant skeletal abnormality is seen. IMPRESSION: Near resolution of the left lower lobe pneumonia. .
--- NOTE | 2017-06-06 13:01 | Progress Note ---
- Date 06/06/17 Subjective: Patient up to chair and eating lunch. Says her breathing is better. She is on RA. She had to be lowered to the floor yesterday evening with 3 person assist to try to get back to bed after voiding. She denies any injury. Objective Vital signs: Temperature 97.5 F 06/06/17 08:56 Pulse Rate 66 06/06/17 08:56 Respiratory Rate 20 06/06/17 08:56 Blood Pressure 143/74 H 06/06/17 08:56 Pulse Oximetry 93 06/06/17 08:56 Rhythm: Normal Sinus Rhythm Height/Weight/BMI: Weight 108.1 kg - Constitutional Present: no acute distress, mild distress - Routine HEENT Exam Head: Present: normocephalic, atraumatic Eye: Present: EOMI, PERRL - Routine Respiratory Exam Present: decreased breath sounds - Routine Cardiovascular Exam Present: RRR, no murmur - Routine Abdominal Exam Present: soft, normoactive bowel sounds, non distended, non tender - Routine Extremities Exam Present: edema - Routine Neurological Exam Present: alert, oriented X3 Results - Labs CBC & Chem 7: 06/05/17 05:17 06/06/17 05:18 Microbiology Results: Microbiology 06/03/17 12:19 Urine, Voided (Cc/notcc) Urine Culture - Final Proteus mirabilis Assessment and Plan (1) Influenza Current visit: Yes Status: Acute (2) Hypoxia Current visit: Yes Status: Acute Assessment and Plan: Assessment Acute Hypoxic respiratory insufficiency secondary to influenza type A Influenza Type A Hypernatremia (POA) Hyperglycemia (POA) HTN Hypothyroidism Acute on chronic generalized debility Chronic gait instability-motorized wheelchair for mobility Morbid obesity with BMI 41.1 Macrocytic anemia UTI Constipation Plan Respiratory sx improving. On RA. Continue duonebs, Pulmicort Sensitivities back, on Augmentin for Proteus UTI. Rocephin was DC'd d/t pt developing erythematous rash on her legs. Na unchanged at 146. Monitor Flecainide changed to Sotalol 40mg BID by Dr. Sagastume. PT/OT. Needs work on transfers. ?SNU - Physician Narrative Narrative: Date: 06/06/17 Time: 1255 Hospital Course Summary Disclaimer: The visit summary below is not to be considered part of the above Progress Note. Hospital Course: 05/31/17: Admitted to observation status for hypoxia secondary to influenza A. IVF were started; Tamiflu initiated for influenza. Oxygen required to maintain saturations >90%. 06/01/17: Became dyspneic and hypoxic early in the morning and IVF were dc'd and Lasix 40 mg were given. Several hours later she was still requiring 10L of oxygen and crackles were auscultated in the lungs, and add'l Lasix 20 mg IV was administered. Scheduled DuoNeb QID and Pulmicort BID. Status was changed to inpatient. 06/02/17: Went into A-fib/flutter shortly after midnight with variable rates from 40-100s. She spontaneously converted to sinus. Troponin was negative x3. Dr. Sagastume was consulted. Respiratory status improving, but still requiring 5- 6L of oxygen. Vitamin B12 level came back normal at 840. 06/03/17 13:49 Start Rocephin for UTI and await c&s. Flecainide to try to prevent had A-fib/flutter. Appreciate Dr. Sagastume's assistance. O2 as needed. Continue Tamiflu, DuoNeb, Pulmicort. Schedule Senokot-s. Miralax prn. Na up to 147. Monitor. 06/05 Na trending up. Sensitivities back, on Augmentin for Proteus UTI. Rocephin was DC'd d/t pt developing erythematous rash on her legs. 06/06 On RA. Had a controlled fall; needs work on transfers.
--- NOTE | 2017-06-06 14:23 | Cardiology Progress Note ---
<Estelle Chung - Last Filed: 06/06/17 14:24> Subjective Principal diagnosis: A Fib with RVR Interval history: Judith is seen in follow up for AFib RVR. She remains in SR. She denies chest pain or pressure, palpitations or near syncope. Continues to have a cough. Exam Vital signs: Temperature 97.5 F 06/06/17 08:56 Pulse Rate 66 06/06/17 08:56 Respiratory Rate 20 06/06/17 13:00 Blood Pressure 143/74 H 06/06/17 08:56 Pulse Oximetry 95 06/06/17 13:16 - Constitutional no acute distress - Routine HEENT Exam Head: Present: normocephalic, atraumatic Eye: Present: EOMI, PERRL ENT: Present: mucous membranes moist - Routine Neck Exam Absent: JVD - Routine Cardiovascular Exam Present: RRR, no murmur - Routine Abdominal Exam Present: soft, normoactive bowel sounds - Routine Skin Exam Present: rash (maculopapular bilateral pretibial areas) - Routine Neurological Exam Present: alert, oriented X3 - Routine Psychiatric Exam Present: normal affect, normal thought process Results 06/05/17 05:17 06/06/17 05:18 Comprehensive Metabolic Panel 06/06/17 Range/Units 05:18 Sodium 146 H (134-144) MEQ/L Potassium 3.8 (3.6-5) MEQ/L Chloride 106 (98-107) MEQ/L Carbon Dioxide 35 H (22-30) MEQ/L BUN 19.0 H (7-17) MG/DL Creatinine 0.7 (0.7-1.2) MG/DL Glucose 94 (65-110) MG/DL Calcium 9.1 (8.4-10.2) MG/DL Intake and Output 06/05/17 06/06/17 06/06/17 22:59 06:59 14:59 Intake Total 540 / 540 1200 / 1200 Output Total 300 / 300 Balance 540 / 540 -300 / -300 1200 / 1200 Intake: Oral 540 / 540 1200 / 1200 Output: Urine 300 / 300 Other: Urine Appearance Clear Urine Color Pale Yellow # Voids 1 Weight 108.1 kg Patient Weight 06/07/17 06:59 Weight 108.1 kg Laboratory Results - last 24 hr 06/06/17 05:18 Turbidity < 20 Sodium 146 H Potassium 3.8 Chloride 106 Carbon Dioxide 35 H Anion Gap 5 BUN 19.0 H Creatinine 0.7 GFR Calculation 83 BUN/Creatinine Ratio 27 H Glucose 94 Calculated Osmolality 283 H Calcium 9.1 Icterus Index < 2 Specimen Hemolysis < 15 - Imaging and Cardiology EKG results: report reviewed Assessment and Plan - Assessment and Plan (1) Influenza Status: Acute (2) Hypoxia Status: Acute (3) HTN (hypertension) Status: Chronic (4) Paroxysmal atrial fibrillation Status: Acute - Assessment and Plan 06/02/17 A Fib: No previous history of arrhythmia. - EKG to ensure SR - Start Flecainide 100mg now and 50mg BID to prevent further Fib/Flutter. - Check Mag - EKG in am - Patient is not a good candidate for anticoagulation since HGB and Platelets have lower each day this hospitalization. - Continue to monitor cardiac telemetry, labs and EKG Thank you for allowing us the opportunity to participate in this patients care. 06/03/17 A fib:Change Flecainide to Sotalol 40mg BID - Monitor cardiac telemetry - EKG tomorrow after noon - Not a good candidate for anticoagulation due to history of cerebral hemorrhage and acute influenza infection increases her risk of bleeding 06/04/17 Arrhythmia greatly improved with Sotalol - Repeat EKG daily due to Tamiflu which can cause prolonged QT 06/05/17 SR on tele, rate 60's no ectopy noted ECG this am SR QT stable at 448 Continue Sotalol 40mg bid Not an anticoagulate candidate due to personal hx of intracranial bleed. 06/06/17 Pt is stable, SR on tele, no ectopy Continue sotalol, monitor during influenza hospitalization lytes stable Hospital Course Summary Disclaimer: The visit summary below is not to be considered part of the above Progress Note. Hospital Course: 05/31/17: Admitted to observation status for hypoxia secondary to influenza A. IVF were started; Tamiflu initiated for influenza. Oxygen required to maintain saturations >90%. 06/01/17: Became dyspneic and hypoxic early in the morning and IVF were dc'd and Lasix 40 mg were given. Several hours later she was still requiring 10L of oxygen and crackles were auscultated in the lungs, and add'l Lasix 20 mg IV was administered. Scheduled DuoNeb QID and Pulmicort BID. Status was changed to inpatient. 06/02/17: Went into A-fib/flutter shortly after midnight with variable rates from 40-100s. She spontaneously converted to sinus. Troponin was negative x3. Dr. Sagastume was consulted. Respiratory status improving, but still requiring 5- 6L of oxygen. Vitamin B12 level came back normal at 840. 06/03/17 13:49 Start Rocephin for UTI and await c&s. Flecainide to try to prevent had A-fib/flutter. Appreciate Dr. Sagastume's assistance. O2 as needed. Continue Tamiflu, DuoNeb, Pulmicort. Schedule Senokot-s. Miralax prn. Na up to 147. Monitor. 06/05 Na trending up. Sensitivities back, on Augmentin for Proteus UTI. Rocephin was DC'd d/t pt developing erythematous rash on her legs. <Bernard Sagastume - Last Filed: 06/09/17 09:11> Exam Vital signs: Temperature 97.0 F 06/08/17 08:00 Pulse Rate 56 L 06/08/17 08:00 Respiratory Rate 12 06/08/17 08:00 Blood Pressure 138/69 06/08/17 08:00 Pulse Oximetry 93 06/08/17 08:00 Results 06/07/17 04:54 06/08/17 05:16 Assessment and Plan - Assessment and Plan (1) Influenza Status: Acute (2) Hypoxia Status: Acute (3) HTN (hypertension) Status: Chronic (4) Paroxysmal atrial fibrillation Status: Acute - Attestation Attestation Narrative: 06/09/17 09:11 Recommendation After examining the patient I agree with the above assessment. I am involved in the formulation of the patient's plan of care. Hospital Course Summary Disclaimer: The visit summary below is not to be considered part of the above Progress Note.
[2017-06-06] MEDS: --POM--QUETIAPINE 50 MG TABLET PO SCH (21:11)
[2017-06-06] MEDS: --POM--PRAVASTATIN 20 MG TABLET PO SCH (21:12)
[2017-06-07] MEDS: SALINE FLUSH 10ml SYRINGE IVF PRN (06:43)
[2017-06-07] MEDS: SOTALOL 80 MG TABLET PO SCH ×2 (06:45→18:15)
[2017-06-07] MEDS: --POM--LEVOTHYROXINE 75 MCG TABLET PO SCH (06:46)
[2017-06-07] MEDS: ALBUTEROL/IPRATROPIUM 2.5mg-0.5mg/3ml NEB AEROSOL SCH ×4 (07:59→21:21)
[2017-06-07] MEDS: CITALOPRAM 40 MG PO SCH (09:05)
[2017-06-07] MEDS: AMOX/CLAV 500 MG/125 MG TABLET PO SCH ×2 (09:05→18:14)
[2017-06-07] MEDS: SENNA + DOCUSATE TABLET PO SCH ×2 (09:05→20:53)
[2017-06-07] MEDS: GUAIFENESIN/D-METHORPHAN 600mg/30mg TABLET PO SCH ×2 (09:05→20:53)
[2017-06-07] MEDS: --POM--AMLODIPINE 5 MG TABLET PO SCH (09:05)
[2017-06-07] MEDS: --POM--FOLIC ACID 1 MG TABLET PO SCH (09:06)
[2017-06-07] MEDS: BUDESONIDE INH.SOLN 0.5mg/2ml NEB AEROSOL SCH ×2 (11:05→21:21)
--- NOTE | 2017-06-07 14:59 | Progress Note ---
- Date 06/07/17 Subjective: Katya is seen today in follow up while sitting up in the chair. She has taken off her oxygen, sats checked during examination and she remains 91-93%. She voices frustration that she is hospialized and states she is ready to go home. Denies having pain. Objective Vital signs: Temperature 97.9 F 06/07/17 08:49 Pulse Rate 61 06/07/17 09:55 Respiratory Rate 18 06/07/17 11:06 Blood Pressure 136/77 06/07/17 08:49 Pulse Oximetry 94 06/07/17 11:07 Height/Weight/BMI: Weight 111.6 kg - Constitutional Present: no acute distress, well nourished, well developed - Routine HEENT Exam Eye: Present: EOMI ENT: Present: mucous membranes moist, dentition normal - Routine Respiratory Exam Present: CTA bilaterally. Absent: wheezes - Routine Cardiovascular Exam Present: RRR, S1, S2. Absent: murmur - Routine Abdominal Exam Present: soft, normoactive bowel sounds, non distended. Absent: tenderness - Routine Extremities Exam Present: edema - Routine Skin Exam Present: intact, dry, warm - Routine Neurological Exam Present: alert, oriented X3, CN II-XII intact, moving all extremities - Routine Lymphatic Exam Lymphatic: Absent: adenopathy - Routine Psychiatric Exam Present: normal affect, cooperative Results - Labs CBC & Chem 7: 06/07/17 04:54 06/07/17 04:54 Microbiology Results: Microbiology 06/03/17 12:19 Urine, Voided (Cc/notcc) Urine Culture - Final Proteus mirabilis Assessment and Plan (1) Influenza Current visit: Yes Status: Acute (2) Hypoxia Current visit: Yes Status: Acute Assessment and Plan: Assessment Acute Hypoxic respiratory insufficiency secondary to influenza type A Influenza Type A Hypernatremia (POA) Hyperglycemia (POA) HTN Hypothyroidism Acute on chronic generalized debility Chronic gait instability-motorized wheelchair for mobility Morbid obesity with BMI 41.1 Macrocytic anemia UTI Constipation 06/07- Plan Maintains on room air. Continue with Duoneb and Pulmicort Remains on Augmentin for treatment of Proteus positive UTI. Persistent Hypernatremia- NA today 147. Continue with Sotalol BID as per Dr Sagastume PT/OT evaluations. She has caregiver at home and is eager for discharge She is hopeful for discharge in the near future Resuscitation Status: Do Not Resuscitate - Physician Narrative Physician: Anmol Ly MD Narrative: Date: 06/07/17 Time: 1830 Have independently interviewed and examined pt. Chart reviewed. Case discussed with my LIFESTYLE CONSULTANT. Care plan developed with my supervision; agree with above. Improving. Breathing much easier. Some cough at times-not sore in chest from coughing. Feels air moves easier. Denies sinus congestion or pressure. Eating well. No ab pain or nausea. Lungs: decreased bilaterally CV: regular MSE: awake alert appropriate Plan: Continue with respiratory toilet-encouraged deep breathing and acapella use. Continue Augmentin for urinary coverage. Possible discharge tomorrow if continues to do well. Hospital Course Summary Disclaimer: The visit summary below is not to be considered part of the above Progress Note. Hospital Course: 05/31/17: Admitted to observation status for hypoxia secondary to influenza A. IVF were started; Tamiflu initiated for influenza. Oxygen required to maintain saturations >90%. 06/01/17: Became dyspneic and hypoxic early in the morning and IVF were dc'd and Lasix 40 mg were given. Several hours later she was still requiring 10L of oxygen and crackles were auscultated in the lungs, and add'l Lasix 20 mg IV was administered. Scheduled DuoNeb QID and Pulmicort BID. Status was changed to inpatient. 06/02/17: Went into A-fib/flutter shortly after midnight with variable rates from 40-100s. She spontaneously converted to sinus. Troponin was negative x3. Dr. Sagastume was consulted. Respiratory status improving, but still requiring 5- 6L of oxygen. Vitamin B12 level came back normal at 840. 06/03/17 Start Rocephin for UTI and await c&s. Flecainide to try to prevent had A-fib/flutter. Appreciate Dr. Sagastume's assistance. O2 as needed. Continue Tamiflu, DuoNeb, Pulmicort. Schedule Senokot-s. Miralax prn. Na up to 147. Monitor. 06/05 Na trending up. Sensitivities back, on Augmentin for Proteus UTI. Rocephin was DC'd d/t pt developing erythematous rash on her legs. 06/07 Maintains on room air. Continue with Duoneb and Pulmicort Remains on Augmentin for treatment of Proteus positive UTI. Persistent Hypernatremia- NA today 147. Continue with Sotalol BID as per Dr Sagastume PT/OT evaluations. She has caregiver at home and is eager for discharge She is hopeful for discharge in the near future
--- NOTE | 2017-06-07 16:38 | Cardiology Progress Note ---
<Breanna Saucedo - Last Filed: 06/08/17 10:49> Subjective Principal diagnosis: A Fib with RVR Interval history: Judith is seen in follow up for AFib RVR. She remains in SR. She is sitting up in the chair in no distress. She denies chest pain or pressure, palpitations or near syncope. Continues to have a cough. Exam Vital signs: Temperature 96.4 F L 06/07/17 15:34 Pulse Rate 60 06/07/17 15:34 Respiratory Rate 18 06/07/17 15:58 Blood Pressure 121/66 06/07/17 15:34 Pulse Oximetry 94 06/07/17 15:58 - Constitutional no acute distress, obese, cooperative - Routine HEENT Exam Head: Present: normocephalic ENT: Present: mucous membranes moist - Routine Neck Exam Absent: JVD - Routine Chest/Breast/Axilla Exam Chest wall: Absent: tenderness - Routine Respiratory Exam Present: CTA bilaterally. Absent: dyspnea, rales, crackles - Routine Cardiovascular Exam Present: RRR, no murmur - Routine Abdominal Exam Present: soft, normoactive bowel sounds - Routine Skin Exam Present: intact, dry, warm - Routine Neurological Exam Present: alert, oriented X3 - Routine Psychiatric Exam Present: normal affect, normal thought process - Additional findings Additional findings: Acetaminophen (Tylenol) 325 - 650 mg PO Q5H PRN PRN Reason: Discomfort Last Admin: 06/01/17 15:24 Dose: 650 mg Hydrocodone Bitart/Acetaminophen ([place] 5/325) 1 tab PO Q6H PRN PRN Reason: Pain Albuterol Sulfate (Proventil Neb (0.083%)) 2.5 mg AEROSOL Q4H PRN PRN Reason: Dyspnea Last Admin: 06/01/17 12:25 Dose: 2.5 mg Albuterol/Ipratropium (Duoneb) 3 ml AEROSOL RTQID [facility] Last Admin: 06/07/17 11:06 Dose: 3 ml Amlodipine Besylate (Norvasc) 5 mg PO DAILY [facility] Last Admin: 06/07/17 09:05 Dose: 5 mg Amoxicillin/Clavulanate Potassium (Augmentin) 500 mg PO BIDWM [facility] Last Admin: 06/07/17 09:05 Dose: 500 mg Budesonide (Pulmicort Inhalation) 0.5 mg AEROSOL RTBID [facility] Last Admin: 06/07/17 11:05 Dose: 0.5 mg Citalopram Hydrobromide (Celexa) 40 mg PO DAILY [facility] Last Admin: 06/07/17 09:05 Dose: 40 mg Diphenhydramine HCl (Benadryl) 25 mg IVP Q4HR PRN PRN Reason: Itching Folic Acid (Folate) 1 mg PO DAILY [facility] Last Admin: 06/07/17 09:06 Dose: 1 mg Guaifenesin/Dextromethorphan (Mucinex Dm) 1 tab PO BID [facility] Last Admin: 06/07/17 09:05 Dose: 1 tab Ibuprofen (Motrin) 600 mg PO Q6HR PRN PRN Reason: Pain Last Admin: 06/04/17 21:02 Dose: 600 mg Levothyroxine Sodium (Synthroid) 75 mcg PO ACB [facility] Last Admin: 06/07/17 06:46 Dose: 75 mcg Magnesium Hydroxide (Mom) 30 ml PO DAILY PRN PRN Reason: Constipation Last Admin: 06/06/17 10:07 Dose: 30 ml Morphine Sulfate (Morphine Sulfate Inj) 1 - 2 mg IVP Q2H PRN PRN Reason: Pain Ondansetron HCl (Zofran) 4 mg IVP Q6H PRN PRN Reason: Nausea &/or vomiting Polyethylene Glycol (Miralax) 17 gm PO DAILY PRN Pravastatin Sodium (Pravachol) 20 mg PO [facility] Last Admin: 06/06/17 21:12 Dose: 20 mg Promethazine HCl/Codeine (Phenergan + Codeine) 5 ml PO Q6HR PRN PRN Reason: Cough Last Admin: 06/04/17 21:03 Dose: 5 ml Quetiapine Fumarate (Seroquel) 50 mg PO [facility] Last Admin: 06/06/17 21:11 Dose: 50 mg Senna/Docusate Sodium (Senna Plus Tablet) 1 tab PO BID [facility] Last Admin: 06/07/17 09:05 Dose: 1 tab Sodium Chloride (Iv Flush) 10 - 80 ml IVF PRN PRN PRN Reason: Flushing Last Admin: 06/07/17 06:43 Dose: 10 ml Sodium Chloride (Deep Sea Nasal Moisturizing [place]) 1 spray EA NOSTRIL PRN PRN PRN Reason: Congestion Sotalol HCl (Betapace) 40 mg PO ACBID [facility] Last Admin: 06/07/17 06:45 Dose: 40 mg Results 06/07/17 04:54 06/08/17 05:16 CBC 06/07/17 Range/Units 04:54 WBC 7.9 (4.5-11.0) T/MM3 RBC 3.72 L (4.00-5.20) M/MM3 Hgb 11.3 L (12-16) GM/DL Hct 37.2 (36-46) % Plt Count 211 D (130-400) T/MM3 Neut # (Auto) 5.0 (1.8-7.7) T/MM3 Lymph # (Auto) 2.0 (1-4.8) T/MM3 Adams # (Auto) 0.7 (0-0.8) T/MM3 Eos # (Auto) 0.1 (0-0.5) T/MM3 Baso # (Auto) 0.0 (0-0.2) T/MM3 Comprehensive Metabolic Panel 06/07/17 Range/Units 04:54 Sodium 147 H (134-144) MEQ/L Potassium 4.1 (3.6-5) MEQ/L Chloride 105 (98-107) MEQ/L Carbon Dioxide 33 H (22-30) MEQ/L BUN 18.0 H (7-17) MG/DL Creatinine 0.7 (0.7-1.2) MG/DL Glucose 93 (65-110) MG/DL Calcium 9.5 (8.4-10.2) MG/DL Intake and Output 06/07/17 06/07/17 06/07/17 06:59 14:59 22:59 Intake Total 100 / 100 400 / 400 Balance 100 / 100 400 / 400 Intake: Oral 100 / 100 400 / 400 Other: Urine Color Pale Weight 246 lb 0.574 oz Patient Weight 06/08/17 06:59 Weight 246 lb 0.574 oz Laboratory Results - last 24 hr 06/07/17 06/07/17 04:54 04:54 WBC 7.9 RBC 3.72 L Hgb 11.3 L Hct 37.2 MCV 100.0 MCH 30.4 MCHC 30.4 L RDW Std Deviation 44.3 Plt Count 211 D MPV 11.5 Immature Gran % (Auto) 2.3 H Neut % (Auto) 62.4 Lymph % (Auto) 24.7 Adams % (Auto) 8.4 Eos % (Auto) 1.8 Baso % (Auto) 0.4 Neut # (Auto) 5.0 Lymph # (Auto) 2.0 Adams # (Auto) 0.7 Eos # (Auto) 0.1 Baso # (Auto) 0.0 Abs Immat Gran (auto) 0.18 H Turbidity < 20 Sodium 147 H Potassium 4.1 Chloride 105 Carbon Dioxide 33 H Anion Gap 9 BUN 18.0 H Creatinine 0.7 GFR Calculation 83 BUN/Creatinine Ratio 26 Glucose 93 Calculated Osmolality 284 H Calcium 9.5 Icterus Index < 2 Specimen Hemolysis < 15 - Imaging and Cardiology Imaging & Cardiology Narrative: 06/07/17 16:39 Date of Exam: 06/05/17 Ordering Provider: Shayy Leong Type of Exam(s): XR chest 1V Reason for Exam(s): cough Indication: cough PROCEDURE: XR chest 1V: Encounter: Initial Comparison: June 03, 2017 FINDINGS: Aeration of the left lower lobe continues to improve. No new or worsening airspace disease. The heart size, pulmonary vasculature and mediastinum are within normal limits. No significant skeletal abnormality is seen. IMPRESSION: Near resolution of the left lower lobe pneumonia. Assessment and Plan - Assessment and Plan (1) Influenza Status: Acute (2) Hypoxia Status: Acute (3) HTN (hypertension) Status: Chronic (4) Paroxysmal atrial fibrillation Status: Acute - Assessment and Plan 06/02/17 A Fib: No previous history of arrhythmia. - EKG to ensure SR - Start Flecainide 100mg now and 50mg BID to prevent further Fib/Flutter. - Check Mag - EKG in am - Patient is not a good candidate for anticoagulation since HGB and Platelets have lower each day this hospitalization. - Continue to monitor cardiac telemetry, labs and EKG Thank you for allowing us the opportunity to participate in this patients care. 06/03/17 A fib:Change Flecainide to Sotalol 40mg BID - Monitor cardiac telemetry - EKG tomorrow after noon - Not a good candidate for anticoagulation due to history of cerebral hemorrhage and acute influenza infection increases her risk of bleeding 06/04/17 Arrhythmia greatly improved with Sotalol - Repeat EKG daily due to Tamiflu which can cause prolonged QT 06/05/17 SR on tele, rate 60's no ectopy noted ECG this am SR QT stable at 448 Continue Sotalol 40mg bid Not an anticoagulate candidate due to personal hx of intracranial bleed. 06/06/17 Pt is stable, SR on tele, no ectopy Continue sotalol, monitor during influenza hospitalization lytes stable 06/07/16 Stable from Cardiac, continue to monitor telemetry - EKG in am. Hospital Course Summary Disclaimer: The visit summary below is not to be considered part of the above Progress Note. Hospital Course: 05/31/17: Admitted to observation status for hypoxia secondary to influenza A. IVF were started; Tamiflu initiated for influenza. Oxygen required to maintain saturations >90%. 06/01/17: Became dyspneic and hypoxic early in the morning and IVF were dc'd and Lasix 40 mg were given. Several hours later she was still requiring 10L of oxygen and crackles were auscultated in the lungs, and add'l Lasix 20 mg IV was administered. Scheduled DuoNeb QID and Pulmicort BID. Status was changed to inpatient. 06/02/17: Went into A-fib/flutter shortly after midnight with variable rates from 40-100s. She spontaneously converted to sinus. Troponin was negative x3. Dr. Sagastume was consulted. Respiratory status improving, but still requiring 5- 6L of oxygen. Vitamin B12 level came back normal at 840. 06/03/17 Start Rocephin for UTI and await c&s. Flecainide to try to prevent had A-fib/flutter. Appreciate Dr. Sagastume's assistance. O2 as needed. Continue Tamiflu, DuoNeb, Pulmicort. Schedule Senokot-s. Miralax prn. Na up to 147. Monitor. 06/05 Na trending up. Sensitivities back, on Augmentin for Proteus UTI. Rocephin was DC'd d/t pt developing erythematous rash on her legs. 06/07 Maintains on room air. Continue with Duoneb and Pulmicort Remains on Augmentin for treatment of Proteus positive UTI. Persistent Hypernatremia- NA today 147. Continue with Sotalol BID as per Dr Sagastume PT/OT evaluations. She has caregiver at home and is eager for discharge She is hopeful for discharge in the near future <Bernard Sagastume - Last Filed: 06/09/17 09:31> Exam Vital signs: Temperature 97.0 F 06/08/17 08:00 Pulse Rate 56 L 06/08/17 08:00 Respiratory Rate 12 06/08/17 08:00 Blood Pressure 138/69 06/08/17 08:00 Pulse Oximetry 93 06/08/17 08:00 Results 06/07/17 04:54 06/08/17 05:16 Assessment and Plan - Assessment and Plan (1) Influenza Status: Acute (2) Hypoxia Status: Acute (3) HTN (hypertension) Status: Chronic (4) Paroxysmal atrial fibrillation Status: Acute - Attestation Attestation Narrative: Patient is examined independently this day by my DYE JIG OPERATOR, finding were discussed and together we agreed on the plan of care. I am involved in the formulation of the patient's plan of care. 06/09/17 09:30 Hospital Course Summary Disclaimer: The visit summary below is not to be considered part of the above Progress Note.
[2017-06-07] MEDS: --POM--PRAVASTATIN 20 MG TABLET PO SCH (20:53)
[2017-06-07] MEDS: --POM--QUETIAPINE 50 MG TABLET PO SCH (20:53)
[2017-06-08 05:31] VITALS: O2SAT 93
[2017-06-08] MEDS: SOTALOL 80 MG TABLET PO SCH (06:28)
[2017-06-08] MEDS: --POM--LEVOTHYROXINE 75 MCG TABLET PO SCH (06:45)
[2017-06-08 08:24] VITALS: BP 138/69; RESP 12; TEMP 97
[2017-06-08] MEDS: GUAIFENESIN/D-METHORPHAN 600mg/30mg TABLET PO SCH (08:40)
[2017-06-08] MEDS: AMOX/CLAV 500 MG/125 MG TABLET PO SCH (08:40)
[2017-06-08] MEDS: SENNA + DOCUSATE TABLET PO SCH (08:40)
[2017-06-08] MEDS: --POM--FOLIC ACID 1 MG TABLET PO SCH (08:41)
[2017-06-08] MEDS: --POM--AMLODIPINE 5 MG TABLET PO SCH (08:41)
[2017-06-08] MEDS: CITALOPRAM 40 MG PO SCH (08:41)
[2017-06-08] MEDS ORDERED: BISACODYL 10 MG SUPPOSITORY RECTALLY PRN (09:22)
--- NOTE | 2017-06-08 09:30 | Progress Note ---
- Date 06/08/17 Subjective: F/U: Acute Hypoxic respiratory insufficiency secondary to influenza type A, Influenza Type A Doing well today. Breathing stable-notes some mild cough/congestion but not SOA. Denies pain with breathing. Maintaining saturations well on RA. Not struggling to breath. No f/c. Eating well-no nausea or ab pain. Stools slow- last bowel movement 2 days ago. Does struggle with constipation at home. Not having urinary pain/discomfort-did have stress urinary incontinence with cough. Strength at baseline. Feels ready to go home. Objective Vital signs: Temperature 97.0 F 06/08/17 08:00 Pulse Rate 53 L 06/08/17 08:00 Respiratory Rate 12 06/08/17 08:00 Blood Pressure 138/69 06/08/17 08:00 Pulse Oximetry 93 06/08/17 08:00 Rhythm: Normal Sinus Rhythm Height/Weight/BMI: Weight 111.3 kg - Constitutional Present: well developed, morbidly obese, cooperative - Routine HEENT Exam Head: Present: normocephalic, atraumatic Eye: Present: EOMI, PERRL ENT: Present: mucous membranes moist - Routine Respiratory Exam Present: decreased breath sounds. Absent: respiratory distress, rhonchi, wheezes, crackles - Routine Cardiovascular Exam Present: RRR, no murmur - Routine Abdominal Exam Present: soft, non distended, non tender. Absent: guarding - Routine Extremities Exam Present: edema (+1 BLE ), pulses intact. Absent: cyanosis, clubbing - Routine Musculoskeletal Exam Musculoskeletal: Present: no clubbing or cyanosis - Routine Skin Exam Present: dry, warm - Routine Neurological Exam Present: alert, oriented X3, CN II-XII intact, moving all extremities, vision grossly intact, hearing grossly intact, normal speech. Absent: motor deficit, altered mental status - Routine Psychiatric Exam Present: normal affect, normal thought process, cooperative Results - Labs CBC & Chem 7: 06/07/17 04:54 06/08/17 05:16 Microbiology Results: Microbiology 06/03/17 12:19 Urine, Voided (Cc/notcc) Urine Culture - Final Proteus mirabilis Assessment and Plan (1) Influenza Current visit: Yes Status: Acute (2) Hypoxia Current visit: Yes Status: Acute Assessment and Plan: Assessment Acute Hypoxic respiratory insufficiency secondary to influenza type A Influenza Type A Hypernatremia (POA) Hyperglycemia (POA) HTN Hypothyroidism Acute on chronic generalized debility Chronic gait instability-motorized wheelchair for mobility Morbid obesity with BMI 41.1 Macrocytic anemia UTI with Proteus mirabilis Constipation Afib with RVR - converted spontaneously to NSR Plan Medically improved. Will d/c to home. Continue Augmentin 500mg BID for 3 more days (6 doses) for urinary coverage. Acapella QID and Mucinex DM BID for 1 week to help respiratory status - then as needed for cough and congestion. Discussed with Cardiology about Afib treatment. Recommend continuing sotalol at 40mg BID for rate control. Nursing to work on bowel function this morning. F/U with Dr Zhang in 1 week for evaluation. F/U with Dr Sagastume in 2 weeks for cardiac evaluation. See orders for details. Case discussed with Cardiology. Time spent with patient care and discharge greater than 30 minutes. DVT Prophylaxis: SCD's Resuscitation Status: Do Not Resuscitate - Physician Narrative Physician: Anmol Ly MD Narrative: Date: 06/08/17 Time: 925 Hospital Course Summary Disclaimer: The visit summary below is not to be considered part of the above Progress Note. Hospital Course: 05/31/17: Admitted to observation status for hypoxia secondary to influenza A. IVF were started; Tamiflu initiated for influenza. Oxygen required to maintain saturations >90%. 06/01/17: Became dyspneic and hypoxic early in the morning and IVF were dc'd and Lasix 40 mg were given. Several hours later she was still requiring 10L of oxygen and crackles were auscultated in the lungs, and add'l Lasix 20 mg IV was administered. Scheduled DuoNeb QID and Pulmicort BID. Status was changed to inpatient. 06/02/17: Went into A-fib/flutter shortly after midnight with variable rates from 40-100s. She spontaneously converted to sinus. Troponin was negative x3. Dr. Sagastume was consulted. Respiratory status improving, but still requiring 5- 6L of oxygen. Vitamin B12 level came back normal at 840. 06/03/17 Start Rocephin for UTI and await c&s. Flecainide to try to prevent had A-fib/flutter. Appreciate Dr. Sagastume's assistance. O2 as needed. Continue Tamiflu, DuoNeb, Pulmicort. Schedule Senokot-s. Miralax prn. Na up to 147. Monitor. 06/04/17 Rocephin was DC'd d/t pt developing erythematous rash on her legs. Urine culture grew out proteus (sensitivities pending) - pt started on Augmentin for Proteus UTI. Flecainide changed to Sotalol 40mg BID yesterday by Dr. Sagastume. Recent tele showing sinus binh/NSR. O2 requirement down to 6L from 10L from last evening. 06/05/17 Na trending up. Sensitivities back, on Augmentin for Proteus UTI. Rocephin was DC'd d/t pt developing erythematous rash on her legs. Course of Tamiflu completed. 06/06/17 Respiratory sx improving. On RA. Continue duonebs, Pulmicort, acapella. Sensitivities back, on Augmentin for Proteus UTI. Na unchanged at 146. Monitor. PT/OT. Needs work on transfers. ?SNU 06/07/17 Maintains on room air. Continue with DuoNeb and Pulmicort. Remains on Augmentin for treatment of Proteus positive UTI. Persistent Hypernatremia- NA today 147. Continue with Sotalol BID as per Dr Sagastume. PT/OT evaluations. She has caregiver at home and is eager for discharge. She is hopeful for discharge in the near future. 06/08/17 Medically improved. Will d/c to home. Continue Augmentin 500mg BID for 3 more days (6 doses) for urinary coverage. Acapella QID and Mucinex DM BID for 1 week to help respiratory status - then as needed for cough and congestion. Discussed with Cardiology about Afib treatment. Recommend Recommend continuing sotalol at 40mg BID for rate control. Nursing to work on bowel function this morning. F/U with Dr Zhang in 1 week for evaluation. F/U with Dr Sagastume in 2 weeks for cardiac evaluation. See orders for details.
[2017-06-08] MEDS: ALBUTEROL/IPRATROPIUM 2.5mg-0.5mg/3ml NEB AEROSOL SCH (10:06)
[2017-06-08] MEDS: BUDESONIDE INH.SOLN 0.5mg/2ml NEB AEROSOL SCH (10:06)
[2017-06-08 10:59] VITALS: PULSE 56
--- NOTE | 2017-06-08 10:59 | Cardiology Progress Note ---
<Breanna Saucedo - Last Filed: 06/08/17 10:55> Subjective Principal diagnosis: A Fib with RVR Interval history: Judith is seen in follow up for AFib RVR. She remains in SR. Her morning Sotalol was held due to bradycardia, however she was asymptomatic. She denies chest pain or pressure, palpitations or near syncope. Discussed medication timing at home and when to call if symptoms arise. Exam Vital signs: Temperature 97.0 F 06/08/17 08:00 Pulse Rate 53 L 06/08/17 08:00 Respiratory Rate 12 06/08/17 08:00 Blood Pressure 138/69 06/08/17 08:00 Pulse Oximetry 93 06/08/17 08:00 - Constitutional no acute distress, obese, cooperative - Routine HEENT Exam Head: Present: normocephalic ENT: Present: mucous membranes moist - Routine Neck Exam Absent: JVD, carotid bruit - Routine Chest/Breast/Axilla Exam Chest wall: Absent: tenderness - Routine Respiratory Exam Present: decreased breath sounds, CTA bilaterally. Absent: rales, wheezes - Routine Cardiovascular Exam Present: RRR, no murmur. Absent: JVD - Routine Abdominal Exam Present: soft, normoactive bowel sounds - Routine Extremities Exam Present: edema - Routine Skin Exam Present: intact, dry, warm - Routine Neurological Exam Present: alert, oriented X3 - Routine Psychiatric Exam Present: normal affect, normal thought process - Additional findings Additional findings: Acetaminophen (Tylenol) 325 - 650 mg PO Q5H PRN PRN Reason: Discomfort Last Admin: 06/01/17 15:24 Dose: 650 mg Hydrocodone Bitart/Acetaminophen (Melvin 5/325) 1 tab PO Q6H PRN PRN Reason: Pain Albuterol Sulfate (Proventil Neb (0.083%)) 2.5 mg AEROSOL Q4H PRN PRN Reason: Dyspnea Last Admin: 06/01/17 12:25 Dose: 2.5 mg Albuterol/Ipratropium (Duoneb) 3 ml AEROSOL RTQID [facility] Last Admin: 06/08/17 10:06 Dose: Not Given Amlodipine Besylate (Norvasc) 5 mg PO DAILY [facility] Last Admin: 06/08/17 08:41 Dose: 5 mg Amoxicillin/Clavulanate Potassium (Augmentin) 500 mg PO BIDWM [facility] Last Admin: 06/08/17 08:40 Dose: 500 mg Bisacodyl (Dulcolax) 10 mg RECTALLY DAILY PRN PRN Reason: Constipation Budesonide (Pulmicort Inhalation) 0.5 mg AEROSOL RTBID [facility] Last Admin: 06/08/17 10:06 Dose: Not Given Citalopram Hydrobromide (Celexa) 40 mg PO DAILY [facility] Last Admin: 06/08/17 08:41 Dose: 40 mg Diphenhydramine HCl (Benadryl) 25 mg IVP Q4HR PRN PRN Reason: Itching Folic Acid (Folate) 1 mg PO DAILY [facility] Last Admin: 06/08/17 08:41 Dose: 1 mg Guaifenesin/Dextromethorphan (Mucinex Dm) 1 tab PO BID [facility] Last Admin: 06/08/17 08:40 Dose: 1 tab Ibuprofen (Motrin) 600 mg PO Q6HR PRN PRN Reason: Pain Last Admin: 06/04/17 21:02 Dose: 600 mg Levothyroxine Sodium (Synthroid) 75 mcg PO ACB [facility] Last Admin: 06/08/17 06:45 Dose: 75 mcg Magnesium Hydroxide (Mom) 30 ml PO DAILY PRN PRN Reason: Constipation Last Admin: 06/08/17 09:39 Dose: 30 ml Morphine Sulfate (Morphine Sulfate Inj) 1 - 2 mg IVP Q2H PRN PRN Reason: Pain Ondansetron HCl (Zofran) 4 mg IVP Q6H PRN PRN Reason: Nausea &/or vomiting Polyethylene Glycol (Miralax) 17 gm PO DAILY PRN Last Admin: 06/08/17 09:39 Dose: 17 gm Pravastatin Sodium (Pravachol) 20 mg PO [facility] Last Admin: 06/07/17 20:53 Dose: 20 mg Promethazine HCl/Codeine (Phenergan + Codeine) 5 ml PO Q6HR PRN PRN Reason: Cough Last Admin: 06/04/17 21:03 Dose: 5 ml Quetiapine Fumarate (Seroquel) 50 mg PO [facility] Last Admin: 06/07/17 20:53 Dose: 50 mg Senna/Docusate Sodium (Senna Plus Tablet) 1 tab PO BID [facility] Last Admin: 06/08/17 08:40 Dose: 1 tab Sodium Chloride (Iv Flush) 10 - 80 ml IVF PRN PRN PRN Reason: Flushing Last Admin: 06/07/17 06:43 Dose: 10 ml Sodium Chloride (Deep Sea Nasal Moisturizing [place]) 1 spray EA NOSTRIL PRN PRN PRN Reason: Congestion Sotalol HCl (Betapace) 40 mg PO ACBID [facility] Last Admin: 06/08/17 06:28 Dose: Not Given Results 06/07/17 04:54 06/08/17 05:16 Cardiac Enzymes 06/07/17 06/08/17 06/08/17 Range/Units 18:14 00:11 05:16 Troponin I < 0.012 < 0.012 < 0.012 (0-0.12) ng/ml Comprehensive Metabolic Panel 06/08/17 Range/Units 05:16 Sodium 146 H (134-144) MEQ/L Potassium 4.1 (3.6-5) MEQ/L Chloride 105 (98-107) MEQ/L Carbon Dioxide 34 H (22-30) MEQ/L BUN 17.0 (7-17) MG/DL Creatinine 0.8 (0.7-1.2) MG/DL Glucose 87 (65-110) MG/DL Calcium 9.4 (8.4-10.2) MG/DL Intake and Output 06/07/17 06/08/17 06/08/17 22:59 06:59 14:59 Intake Total 460 / 460 Output Total 475 / 475 150 / 150 Balance -475 / -475 -150 / -150 460 / 460 Intake: Oral 460 / 460 Output: Urine 475 / 475 150 / 150 Other: Urine Appearance Clear Clear Urine Color Dark Yellow Dark Yellow Urine Odor Strong Strong Weight 245 lb 5.992 oz Patient Weight 06/09/17 06:59 Weight 245 lb 5.992 oz Laboratory Results - last 24 hr 06/07/17 06/08/17 06/08/17 18:14 00:11 05:16 Turbidity < 20 Sodium 146 H Potassium 4.1 Chloride 105 Carbon Dioxide 34 H Anion Gap 7 BUN 17.0 Creatinine 0.8 GFR Calculation 72 BUN/Creatinine Ratio 21 Glucose 87 Calculated Osmolality 282 H Calcium 9.4 Magnesium 2.5 H Icterus Index < 2 Troponin I < 0.012 < 0.012 < 0.012 Specimen Hemolysis < 15 < 15 < 15 Assessment and Plan - Assessment and Plan (1) Influenza Status: Acute (2) Hypoxia Status: Acute (3) HTN (hypertension) Status: Chronic (4) Paroxysmal atrial fibrillation Status: Acute - Assessment and Plan 06/02/17 A Fib: No previous history of arrhythmia. - EKG to ensure SR - Start Flecainide 100mg now and 50mg BID to prevent further Fib/Flutter. - Check Mag - EKG in am - Patient is not a good candidate for anticoagulation since HGB and Platelets have lower each day this hospitalization. - Continue to monitor cardiac telemetry, labs and EKG Thank you for allowing us the opportunity to participate in this patients care. 06/03/17 A fib:Change Flecainide to Sotalol 40mg BID - Monitor cardiac telemetry - EKG tomorrow after noon - Not a good candidate for anticoagulation due to history of cerebral hemorrhage and acute influenza infection increases her risk of bleeding 06/04/17 Arrhythmia greatly improved with Sotalol - Repeat EKG daily due to Tamiflu which can cause prolonged QT 06/05/17 SR on tele, rate 60's no ectopy noted ECG this am SR QT stable at 448 Continue Sotalol 40mg bid Not an anticoagulate candidate due to personal hx of intracranial bleed. 06/06/17 Pt is stable, SR on tele, no ectopy Continue sotalol, monitor during influenza hospitalization lytes stable 06/07/16 Stable from Cardiac, continue to monitor telemetry - EKG in am. EKG and serial troponin obtain yesterday/ afternoon evening due to reported ST elevation on telemetry - Patient was asymptomatic, troponin negative X3. EKG: SB, nonspecific ST changes 06/08/16 Sotalol held by nursing due to asymptomatic bradycardia. Discussed medication side effects and dose timing with patient. Will continue Sotalol 40mg BID on Discharge - Follow up with Dr. Sagastume on 06/22/16 at 1430 in the [place] office. Hospital Course Summary Disclaimer: The visit summary below is not to be considered part of the above Progress Note. Hospital Course: 05/31/17: Admitted to observation status for hypoxia secondary to influenza A. IVF were started; Tamiflu initiated for influenza. Oxygen required to maintain saturations >90%. 06/01/17: Became dyspneic and hypoxic early in the morning and IVF were dc'd and Lasix 40 mg were given. Several hours later she was still requiring 10L of oxygen and crackles were auscultated in the lungs, and add'l Lasix 20 mg IV was administered. Scheduled DuoNeb QID and Pulmicort BID. Status was changed to inpatient. 06/02/17: Went into A-fib/flutter shortly after midnight with variable rates from 40-100s. She spontaneously converted to sinus. Troponin was negative x3. Dr. Sagastume was consulted. Respiratory status improving, but still requiring 5- 6L of oxygen. Vitamin B12 level came back normal at 840. 06/03/17 Start Rocephin for UTI and await c&s. Flecainide to try to prevent had A-fib/flutter. Appreciate Dr. Sagastume's assistance. O2 as needed. Continue Tamiflu, DuoNeb, Pulmicort. Schedule Senokot-s. Miralax prn. Na up to 147. Monitor. 06/05 Na trending up. Sensitivities back, on Augmentin for Proteus UTI. Rocephin was DC'd d/t pt developing erythematous rash on her legs. 06/07 Maintains on room air. Continue with Duoneb and Pulmicort Remains on Augmentin for treatment of Proteus positive UTI. Persistent Hypernatremia- NA today 147. Continue with Sotalol BID as per Dr Sagastume PT/OT evaluations. She has caregiver at home and is eager for discharge She is hopeful for discharge in the near future <Bernard Sagastume - Last Filed: 06/09/17 09:37> Exam Vital signs: Temperature 97.0 F 06/08/17 08:00 Pulse Rate 56 L 06/08/17 08:00 Respiratory Rate 12 06/08/17 08:00 Blood Pressure 138/69 06/08/17 08:00 Pulse Oximetry 93 06/08/17 08:00 Results 06/07/17 04:54 06/08/17 05:16 Assessment and Plan - Assessment and Plan (1) Influenza Status: Acute (2) Hypoxia Status: Acute (3) HTN (hypertension) Status: Chronic (4) Paroxysmal atrial fibrillation Status: Acute - Attestation Attestation Narrative: Patient was examined independently by my COUNSELOR AT [employer], findings were discussed and together we agreed on the plan of care. I am involved in the formulation of the patient's plan of care. 06/09/17 09:37 Hospital Course Summary Disclaimer: The visit summary below is not to be considered part of the above Progress Note.
--- NOTE | 2017-06-11 19:24 | Discharge Summary ---
Discharge Information Date of admission: 06/01/17 11:49 Anticipated date of discharge: 06/08/17 Attending Physician: Anmol Ly MD Primary care physician: Jacqueline Zhang DO Consults: Physician Consult: Bernard Sagastume Reason For Exam: a-fib - Discharge Diagnosis (1) Influenza Status: Acute (2) Hypoxia Status: Acute Discharge diagnosis Acute Hypoxic respiratory insufficiency secondary to influenza type A Associated conditions and complications Influenza Type A Hypernatremia (POA) Hyperglycemia (POA) HTN Hypothyroidism Acute on chronic generalized debility Chronic gait instability-motorized wheelchair for mobility Morbid obesity with BMI 41.1 Macrocytic anemia UTI with Proteus mirabilis Constipation Afib with RVR - converted spontaneously to NSR - Procedures Procedures: Date of Exam: 06/01/17 Type of Exam: US ECHO doppler complete FINDINGS 1. CARDIAC CHAMBERS: All cardiac chamber measurements are normal. Aortic root diameter is normal. LV size and contractility appear normal. EF 75%. Grade 1/4 diastolic dysfunction is suggested based on inverted E/A ratio of 0.9. MVDT is borderline increased at 282 milliseconds. 2. VALVES: Aortic and mitral valves exhibit slight sclerotic changes. Valve opening is normal. Tricuspid valve structure and motion appear normal with normal valve excursion. 3. DOPPLER: Trace mitral regurgitation. Trace tricuspid regurgitation. Systolic PA pressure estimated at 33-38 mmHg which is borderline increased. Normal flow velocities throughout were measured. Mean gradient across the aortic valve is 7 mmHg with a valve area of 2.55 cm2. IMPRESSION 1. Normal cardiac chamber size. 2. Normal left ventricular systolic function, EF 75%, with borderline findings for mild diastolic dysfunction. Again, left atrial size remains normal. 3. No significant valvular dysfunction. 4. Borderline elevated systolic PA pressure/mild pulmonary hypertension. 5. Left-sided pleural effusion is suggested. - Laboratory Labs: Admit Lab 05/31/17 00:10 WBC 9.2 Hgb 12.6 Hct 39.9 MCV 100.0 Plt Count 135 Neut % (Auto) 83.2 H Lymph % (Auto) 7.6 L [place] % (Auto) 8.4 Eos % (Auto) 0.2 Admit Lab 05/31/17 05/31/17 00:10 00:10 Sodium 145 H Potassium 4.3 Chloride 105 Carbon Dioxide 26 Anion Gap 14 BUN 14.0 Creatinine 0.7 GFR Calculation 83 BUN/Creatinine Ratio 20 Glucose 138 H Calculated Osmolality 282 H Calcium 9.4 Total Bilirubin 0.60 AST 24 ALT 21 Alkaline Phosphatase 68 Troponin I < 0.012 Total Protein 7.4 Albumin 4.3 Globulin 3.1 Albumin/Globulin Ratio 1.4 Plasma Lactate 1.9 Procalcitonin < 0.05 Laboratory Tests 06/02/17 06/02/17 04:20 04:20 Vitamin B12 840 TSH 0.82 Laboratory Tests 05/31/17 00:00 Influenza Type A (PCR) Positive A* 06/07/17 04:54 06/08/17 05:16 - Microbiology Microbiology 06/03/17 12:19 Urine, Voided (Cc/notcc) Urine Culture - Final Proteus mirabilis - Radiology Radiology: Date of Exam: 05/31/17 PROCEDURE: XR chest 1V Findings: The lungs are stable in appearance without new focal airspace consolidation. There is no pleural effusion or pneumothorax. The heart size, pulmonary vascularity and mediastinal contours are unchanged. IMPRESSION: Stable appearance of the chest without acute cardiopulmonary disease. ---- Date of Exam: 06/01/17 PROCEDURE: XR chest 1V Findings: There is suggestion of airspace consolidation in the retrocardiac left lower lobe which may have been obscured by overlying monitoring leads on the comparison study. Right lung is clear. No pneumothorax or pleural effusion. Heart size and mediastinal contours are normal. Pulmonary vascularity appears normal. Impression: Left retrocardiac infiltrate could be due to atelectasis or pneumonia. ------ Date of Exam: 06/05/17 PROCEDURE: XR chest 1V FINDINGS: Aeration of the left lower lobe continues to improve. No new or worsening airspace disease. The heart size, pulmonary vasculature and mediastinum are within normal limits. No significant skeletal abnormality is seen. IMPRESSION: Near resolution of the left lower lobe pneumonia. History of Present Illness HPI: Katya is a pleasant 67 year old CF who presented to the ER with 1-2 days of progressive cough, myalgias, and fevers. She did test positive for Influenza A and proved to be hypoxic on RA at 88%. She also suffers from chronic debility following a remote CVA. She was hypertensive in the ER which improved after triage treatment. Remainder of workup was essentially unrevealing and she is admitted for further evaluation and management. For complete details of the H&P refer to that document. Objective Vital signs: Temperature 97.0 F 06/08/17 08:00 Pulse Rate 56 L 06/08/17 08:00 Respiratory Rate 12 06/08/17 08:00 Blood Pressure 138/69 06/08/17 08:00 Pulse Oximetry 93 06/08/17 08:00 Rhythm: Normal Sinus Rhythm Height/Weight/BMI: Weight 111.3 kg Hospital Course This is a general summary of the patient's hospital course. For more details refer to the complete medical record. Hospital course: 05/31/17: Admitted to observation status for hypoxia secondary to influenza A. IVF were started; Tamiflu initiated for influenza. Oxygen required to maintain saturations >90%. 06/01/17: Became dyspneic and hypoxic early in the morning and IVF were dc'd and Lasix 40 mg were given. Several hours later she was still requiring 10L of oxygen and crackles were auscultated in the lungs, and add'l Lasix 20 mg IV was administered. Scheduled DuoNeb QID and Pulmicort BID. Status was changed to inpatient. 06/02/17: Went into A-fib/flutter shortly after midnight with variable rates from 40-100s. She spontaneously converted to sinus. Troponin was negative x3. Dr. Sagastume was consulted. Respiratory status improving, but still requiring 5- 6L of oxygen. Vitamin B12 level came back normal at 840. 06/03/17 Start Rocephin for UTI and await c&s. Flecainide to try to prevent had A-fib/flutter. Appreciate Dr. Sagastume's assistance. O2 as needed. Continue Tamiflu, DuoNeb, Pulmicort. Schedule Senokot-s. Miralax prn. Na up to 147. Monitor. 06/04/17 Rocephin was DC'd d/t pt developing erythematous rash on her legs. Urine culture grew out proteus (sensitivities pending) - pt started on Augmentin for Proteus UTI. Flecainide changed to Sotalol 40mg BID yesterday by Dr. Sagastume. Recent tele showing sinus binh/NSR. O2 requirement down to 6L from 10L from last evening. 06/05/17 Na trending up. Sensitivities back, on Augmentin for Proteus UTI. Rocephin was DC'd d/t pt developing erythematous rash on her legs. Course of Tamiflu completed. 06/06/17 Respiratory sx improving. On RA. Continue duonebs, Pulmicort, acapella. Sensitivities back, on Augmentin for Proteus UTI. Na unchanged at 146. Monitor. PT/OT. Needs work on transfers. ?SNU 06/07/17 Maintains on room air. Continue with DuoNeb and Pulmicort. Remains on Augmentin for treatment of Proteus positive UTI. Persistent Hypernatremia- NA today 147. Continue with Sotalol BID as per Dr Sagastume. PT/OT evaluations. She has caregiver at home and is eager for discharge. She is hopeful for discharge in the near future. 06/08/17 Medically improved. Will d/c to home. Continue Augmentin 500mg BID for 3 more days (6 doses) for urinary coverage. Acapella QID and Mucinex DM BID for 1 week to help respiratory status - then as needed for cough and congestion. Discussed with Cardiology about Afib treatment. Recommend Recommend continuing sotalol at 40mg BID for rate control. Nursing to work on bowel function this morning. F/U with Dr Zhang in 1 week for evaluation. F/U with Dr Sagastume in 2 weeks for cardiac evaluation. See orders for details. Time spent with patient: discharge greater than 30 minutes Discharge Plan - Discharge Disposition Discharge Date: 06/08/17 Disposition: Discharged Home, Self-Care *Condition: Improved Reason For Visit (Visit label in EMR): Influenza hypoxia - Discharge Medications *Discharge Medications: New Guaifenesin/Dm [Mucinex Dm] 1 tab PO BID tab Milk of Magnesia [Mom] 30 ml PO DAILY PRN udc PRN Reason: Constipation PEG 3350 17gm PACKET [Miralax] 17 gm PO DAILY PRN packet PRN Reason: Constipation Promethazine + Cod Liq [Phenergan + Codeine] 5 ml PO Q6HR PRN #150 ml PRN Reason: Cough Sodium Chloride [Deep Sea] 1 spray EA NOSTRIL PRN PRN spray PRN Reason: Congestion Sotalol [Betapace] 40 mg PO ACBID #30 tab Amox/Clav [Augmentin] 500 mg PO BIDWM #6 tab Bisacodyl Supp [Dulcolax] 10 mg RECTALLY DAILY PRN suppositor PRN Reason: Constipation Continue Pravastatin Sodium 1 tab PO DAILY #30 Ibuprofen 600 mg PO Q6HR PRN 10 Days #40 tab PRN Reason: PAIN Citalopram Hydrobromide [Citalopram HBr] 40 mg PO DAILY #0 Folic Acid 1 mg PO DAILY #0 Quetiapine Fumarate [Seroquel] 50 mg PO HS #0 Sennosides [Senna-Gen] 8.6 mg PO BID #2 Fluticasone Propionate (Flonase) 0.65 EA NOSTRIL BID #0 Amlodipine Besylate 5 mg PO DAILY #0 tab Levothyroxine Sodium 1 tab PO DAILY #90 - Discharge Packet/Instructions *Diet: Chopped meat, regular liquids. *Activity: As tolerated *Pain Management/Treatment: Continue prior pain medications *Wound Care: n/a Additional Instructions: Use Acapella 4 times a day for 1 week, then as needed for cough and congestion. Use Mucinex DM twice a day for 1 week, then as needed for cough and congestion. Pravastatin (Pravachol) should be taken at bedtime for maximum effect. *Expected Signs/Symptoms: Improvement of breathing. *Notify Physician if: Temp >100.4. Worsing breathing. *During Business Hours Contact: Dr Zhang. *After Business Hours Contact: Call [facility] and have Dr Zhang or her covering physician contacted. *Pending Lab/Results: No Pending Lab - Referrals/Follow Up *Referrals/Follow Up: Bernard Sagastume MD [Physician] - 2 Weeks (Hospital follow up for Afib. APPOINTMENT 06/22 AT 2:40.) Jacqueline Zhang DO [Family Provider] - 1 Week (Hopsital follow up for influenza. APPOINTMENT ON 06/15 9:10. ) - Patient Handouts Patient Handouts: Influenza (GEN) - Dismissal Complete Discharge Instructions are:: Complete Physician Narrative - Narrative Physician: Anmol Ly MD Attestation Narrative: I have independently interviewed and examined patient prior to discharge. See my progress note from 06/08/17 for details. Medically stable for discharge to home.
== END 2017-06-08 13:50 | disposition home or self-care (01) | DRG 194 ==
LOC: ED 23:42 → MED 23:42 → SUATTDRO 06-01 11:49
PROVIDERS: ADMIT Internal Medicine; ATTEND Hospitalist